=== PATIENT | male | born 1955 | race Caucasian/White ===

== ENCOUNTER 2019-06-29 20:35 | Emergency (ER) | payer OTHER ==
--- OUTSIDE RECORDS SUMMARY | 2019-06-29 20:37 | XMS REPORT ---
:1955 Author Organization e[employer] Care Team Providers Name Role Phone Young, Na Provider Role Unavailable Allergies, Adverse Reactions, Alerts Substance Reaction Event Type Lisinopril pass out Drug Allergy Problems Problem Type Condition Code Onset Dates Condition Status Assessment Chronic viral hepatitis C B18.2 Active Assessment Esophageal varices without bleeding I85.00 Active Problem Hepatitis K75.9 Active Assessment Unspecified cirrhosis of liver K74.60 Active Problem Reflux K21.9 Active Assessment Edema of left lower extremity R60.0 Active Problem Memory problem R41.3 Active Problem Acquired hypothyroidism E03.9 Active Problem Unsteady gait R26.81 Active Problem Allergic rhinitis J30.9 Active Problem Anxiety F41.9 Active Problem Abnormal heart rhythm I49.9 Active Problem Essential hypertension I10 Active Assessment Right hand pain M79.641 Active Problem Lumbar degenerative disc disease M51.36 Active Problem PTSD (post-traumatic stress F43.10 Active disorder) Problem Diverticulitis K57.92 Active Problem Depression F32.9 Active Problem Unspecified cirrhosis of liver K74.60 Active Problem Chronic viral hepatitis C B18.2 Active Problem Circulation problem I99.9 Active Problem Dementia with behavioral 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, unspecified dementia type Problem Irritable bowel K58.9 Active Problem Mixed hyperlipidemia E78.2 Active Problem Swelling R60.9 Active Problem High cholesterol E78.00 Active Medications Medication Code Code Instructions Start End Status Dosage System Date Date Spironolactone [facility] 05863236057 25 MG Orally Active 1 tablet Levothyroxine [facility] [address]-15 175 MCG Orally Active 1 tablet Sodium Once a day on an empty stomach in the morning Ibuprofen ND 31760080279 600 MG Orally Jun 06Jun Active 1 tablet two times a day 2018 20, with food prn pain 2018 or milk as needed Protonix ND 64506178181 40 MG Orally Active 1 tablet Once a day Clonazepam ND 53154281864 0.5 MG Orally Active 1 tablet Once a day at bedtime Lipitor [facility] 31061272941 80 MG Orally Active 1 tablet Once a day Tamsulosin HCl [facility] 28531553630 0.4 MG Orally Active 1 capsule Once a day Trazodone HCl [facility] 78108153390 100 MG Orally Active 1 tablet Once a day at bedtime Levothyroxine [facility] 47399191057 175 MCG Orally February 21, Active 1 tablet Sodium Once a day 2018 on an empty stomach in the morning Cyanocobalamin [facility] [address]-77 1000 MCG Orally Active 1 tablet Once a day BuPROPion HCl ER [facility] 53188385684 150 MG Orally Active 1 tablet (Smoking Det) Once a day in the morning Results No Known Results Summary Purpose eClinicalWorks Submission
--- OUTSIDE RECORDS SUMMARY | 2019-06-29 20:37 | XMS REPORT | Clinical Summary ---
:1955 Author Organization [employer] Address [address] [place] [address] Care Team Providers Name Role Phone Asked, No Pcp Primary Care Provider Unavailable Allergies Active Allergy Reactions Severity Noted Date Comments Lisinopril 01/03/2019 Hypotension, blood pressure drops too quickly Medications Medication Sig Dispensed Refills Start Date End Date Status lactulose 20 gram/30 Take 20 g by 0 Active mL solution mouth 3 (three) times a day. atorvastatin (LIPITOR) Take 80 mg by 0 Active 80 MG tablet mouth daily. buPROPion SR Take 150 mg by 0 Active (WELLBUTRIN SR) 150 MG mouth 2 (two) 12 hr tablet times a day. levothyroxine Take 175 mcg by 0 Active (SYNTHROID, LEVOXYL) mouth every 175 mcg tablet morning. guaiFENesin (MUCINEX) Take 600 mg by 0 Active 600 mg tablet extended mouth 2 (two) release 12hr times a day. tamsulosin (FLOMAX) Take 0.4 mg by 0 Active 0.4 mg capsule mouth nightly. spironolactone Take 12.5 mg by 0 Active (ALDACTONE) 25 MG mouth daily. tablet traZODone (DESYREL) Take 100 mg by 0 Active 100 MG tablet mouth nightly as needed for sleep. furosemide (LASIX) 20 Take 20 mg by 0 Active mg tablet mouth daily. pantoprazole Take 40 mg by 0 Active (PROTONIX) 40 MG EC mouth daily. tablet riFAXimin (XIFAXAN) Take 1 tablet 60 tablet 2 01/03/2019 02/02/2019 550 mg tablet (550 mg total) by mouth 2 (two) times a day for 30 days. Active Problems Not on file Encounters Date Type Specialty Care Team Description 01/03/2019 Emergency Emergency Medicine Sarmad Melo, Confusion ( Primary Dx); Cirrhosis of liver without ascites, unspecified hepatic cirrhosis type (HCC) after 06/28/2018 Social History Tobacco Use Types Packs/Day Years Used Date Never Assessed Sex Assigned at Date Recorded Not on file Job Start Date Occupation Industry Not on file Not on file Not on file Travel History Travel Start Travel End No recent travel history available. Last Filed Vital Signs Vital Sign Reading Time Taken Comments Blood Pressure 120/78 01/03/2019 2:56 PM CDT Pulse 74 01/03/2019 2:56 PM CDT Temperature 36.7 C (98.1 F) 01/03/2019 11:51 AM CDT Respiratory Rate 16 01/03/2019 2:56 PM CDT Oxygen Saturation 96% 01/03/2019 2:56 PM CDT Inhaled Oxygen Concentration - - Weight 74.8 kg (165 lb) 01/03/2019 11:51 AM CDT Height 175.3 cm (5' 9") 01/03/2019 11:51 AM CDT Body Mass Index 24.37 01/03/2019 11:51 AM CDT Plan of Treatment Health Maintenance Due Date Last Done Comments COLONOSCOPY SCREENING 2006 SHINGLES VACCINES (#1) 2006 INFLUENZA VACCINE 05/17/2019 Procedures Procedure Name Priority Date/Time Associated Comments Diagnosis PROTHROMBIN TIME WITH STAT 01/03/2019 1:33 Results for this INR PM CDT procedure are in the results section. PARTIAL THROMBOPLASTIN STAT 01/03/2019 1:33 Results for this TIME (PTT) PM CDT procedure are in the results section. B NATRIURETIC PEPTIDE STAT 01/03/2019 1:33 Results for this PM CDT procedure are in the results section. HC COMPLETE BLD COUNT STAT 01/03/2019 1:33 Results for this W/AUTO DIFF PM CDT procedure are in the results section. AMMONIA LEVEL STAT 01/03/2019 1:31 Results for this PM CDT procedure are in the results section. NV CRITICAL CARE, E/M Routine 01/03/2019 1:25 Results for this 30-74 MINUTES PM CDT procedure are in the results section. VENOUS BLOOD GAS STAT 01/03/2019 1:17 Results for this PM CDT procedure are in the results section. RESPIRATORY PATHOGEN Routine 01/03/2019 1:17 Results for this PANEL PM CDT procedure are in the results section. BLOOD CULTURE, AEROBIC Routine 01/03/2019 1:17 Results for this & ANAEROBIC PM CDT procedure are in the results section. INFLUENZA ANTIGEN TEST, Routine 01/03/2019 1:17 Results for this REFLEX NEGATIVE TO RPP PM CDT procedure are in the results section. LACTIC ACID LEVEL, Timed 01/03/2019 1:10 Results for this SEPSIS - NOW AND REPEAT PM CDT procedure are in 2X EVERY 3 HOURS the results section. ESTIMATED GFR STAT 01/03/2019 1:10 Results for this PM CDT procedure are in the results section. HEPATIC FUNCTION PANEL STAT 01/03/2019 1:10 Results for this PM CDT procedure are in the results section. BASIC METABOLIC PANEL STAT 01/03/2019 1:10 Results for this PM CDT procedure are in the results section. TROPONIN STAT 01/03/2019 1:10 Results for this PM CDT procedure are in the results section. BLOOD CULTURE, AEROBIC Routine 01/03/2019 1:10 Results for this & ANAEROBIC PM CDT procedure are in the results section. XR CHEST 1 VW PORTABLE STAT 01/03/2019 12:25 Results for this PM CDT procedure are in the results section. ECG 12-LEAD STAT 01/03/2019 12:06 Results for this PM CDT procedure are in the results section. after 06/28/2018 Results Partial thromboplastin time, activated (01/03/2019 1:33 PM CDT) Pathologist [facility] PTT 25.9 23.0 - 36.0 [facility] Comment: [facility] PTT therapeutic range for unfractionated heparin is 61.0-112.0 seconds which corresponds to Anti-Xa 0.3-0.7 U/ml. Specimen Blood Performing Organization Address [facility] Phone Number [facility] DEPARTMENT OF PATHOLOGY AND [address] [place] [phone] [facility] MEDICINE [address] [address] Prothrombin time with INR (01/03/2019 1:33 PM CDT) Pathologist [facility] Prothrombin time 13.2 11.5 - 14.5 [facility] INR 1.0 [facility] Comment: SCIENT[facility] The International Normalized Ratio (INR) is a therapeutic HOSPITAL monitoring tool for patients who are stable on oral anticoagulant therapy. An INR of 2.0-3.0 is suggested for deep vein thrombosis/pulmonary embolism. Specimen Blood Performing Organization Address [facility] Cent[facility]ode Phone Number [facility] DEPARTMENT OF PATHOLOGY AND [address] [place] [phone] [address] CBC with platelet and differential (01/03/2019 1:33 PM CDT) WBC 6.06 4.50 - 11.00 [facility] k/uL HOSPITAL RBC 4.57 4.40 - 6.00 [facility] m/uL HOSPITAL HGB 13.2 (L) 14.0 - 18.0 [facility] g/dL [facility] HCT 40.2 (L) 41.0 - 51.0 % [facility] MCV 88.0 82.0 - 100.0 [facility] MCH 28.9 27.0 - 34.0 pg [facility] MCHC 32.8 31.0 - 37.0 [facility] RDW - SD 47.0 37.0 - 55.0 fL [facility] MPV 10.8 8.8 - 13.2 fL [facility] Platelet count 149 (L) 150 - 400 k/uL [facility] Nucleated RBC 0.00 /100 WBC [facility] Neutrophils 70.6 (H) 39.0 - 69.0 % [facility] Lymphocytes 15.8 (L) 25.0 - 45.0 % [facility] Monocytes 11.7 (H) 0.0 - 10.0 % [facility] Eosinophils 0.8 0.0 - 5.0 % [facility] Basophils 0.8 0.0 - 1.0 % [facility] Immature granulocytes 0.3Comment: 0.0 - 1.0 % [facility] "Immature HOSPITAL granulocytes" (promyelocytes , myelocytes, metamyelocytes ) Specimen Blood Performing Organization Address City/State/Zipcode Phone Number [facility] DEPARTMENT OF PATHOLOGY AND [address] [place] [phone] [address] B natriuretic peptide (01/03/2019 1:33 PM CDT) BNP 7 0 - 100 pg/mL [facility] Specimen Blood Performing Organization Address City/State/Zipcode Phone Number [facility] DEPARTMENT OF PATHOLOGY AND [address] [place] [address] [address] Ammonia level (01/03/2019 1:31 PM CDT) Ammonia 31 16 - 60 umol/L [facility] Specimen Blood Performing Organization Address City/State/Zipcode Phone Number [facility] DEPARTMENT OF PATHOLOGY AND [address] [place] [address] GENOMIC MEDICINE [facility] [address] [place] [address] CRITICAL CARE (01/03/2019 1:25 PM CDT) Narrative Performed At Sarmad Melo MD 01/10/20198:57 PM Critical Care Performed by: Sarmad Melo MD Authorized by: Sarmad Melo MD Critical care provider statement: Critical care time (minutes):35 Critical care time was exclusive of:Separately billable procedures and treating other patients and teaching time Critical care was necessary to treat or prevent imminent or life-threatening deterioration of the following conditions: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 and 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 Critical care was time spent personally by me on the following activities:Development of treatment plan with patient or surrogate, evaluation of patient's response to treatment, examination of patient, obtaining history from patient or surrogate, ordering and performing treatments and interventions, ordering and review of laboratory studies, ordering and review of radiographic studies, pulse oximetry, re-evaluation of patient's condition and review of old charts Wade 'yes' if you are taking over critical care for this patient from another provider.: no Comments: Pt p/w self stated grogginess, confusion, some slight memory impairments in the setting of cirrhosis and history of hepatic encephalopthy. Neruological evaluation without deficits, infectious eval without signs if infection, bedside ultrasound without ascities- neg cxr/ua- ammonia slightly elevated- as per medication review decrease use/fucntion of lactulose on terms of providding adequate BM's, no use of Rifaxamin- pt provided rifaxamin and told to increase his lactulose and follow up with his GI at the [facility] Respiratory pathogen panel (01/03/2019 1:17 PM CDT) Respiratory Negative for all pathogens tested: [facility] pathogen panel Negative for Adenovirus SCIENTOLOGY Negative for Coronavirus HKU1 [facility] Negative for Coronavirus NL63 Negative for Coronavirus 229E Negative for Coronavirus OC43 Negative for Human Metapneumovirus Negative for Rhinovirus/Enterovirus Negative for Influenza A Negative for Influenza A/H1 Negative for Influenza A/H3 Negative for Influenza A/H1-2009 Negative for Influenza B Negative for Parainfluenza Virus 1 Negative for Parainfluenza Virus 2 Negative for Parainfluenza Virus 3 Negative for Parainfluenza Virus 4 Negative for Respiratory Syncytial Virus Negative for Bordetella pertussis Negative for Chlamydophila pneumoniae Negative for Mycoplasma pneumoniae This real-time PCR assay detects the presence of nucleic acids (RNA or DNA) for the respiratory pathogens listed. A result of "Not-detected" does not exclude the possibility of the presence of one or more pathogens at concentrations less than the detectable limits of the assay. Comment: Specimen Information Specimen Source: Nares Specimen Site: Left Specimen Nares - Left Performing Organization Address [facility] Centercode Phone Number [facility] DEPARTMENT OF PATHOLOGY AND [address] [place] [address] Influenza antigen test, reflex negative to RPP (01/03/2019 1:17 PM CDT) [facility] Influenza antigen Negative for Influenza A/B antigen. [facility] Comment: HOSPITAL Specimen Information Specimen Source: Nares Specimen Site: Left Specimen Nares - Left Performing Organization Address City/[facility] Centercomt Phone Number [facility] DEPARTMENT OF PATHOLOGY AND [address] [place] [address] Blood culture, aerobic & anaerobic (01/03/2019 1:17 PM CDT)Only the most recent of2 resultswithin the time period is included. [facility] Blood culture No growth after 5 days of incubation. [facility] isolate Comment: HOSPITAL Specimen Information Specimen Source: Blood Specimen Site: Antecubital, left Specimen Blood - Antecubital, left Performing Organization Address [facility] Phone Number [facility] DEPARTMENT OF PATHOLOGY AND [address] [place] [phone] Venous blood gas (01/03/2019 1:17 PM CDT) [facility] pH, venous 7.41 7.32 - 7.42 [facility] pCO2, venous 40 (L) 45 - 51 mmHg [facility] pO2, venous 71 (H) 25 - 40 mmHg [facility] Base excess, venous 1 -2 - 2 meq/L [facility] O2 saturation, 94 (H) 40 - 70 % [facility] Bicarbonate, venous 24.7 21.0 - 28.0 [facility] mmol/L HOSPITAL Specimen Blood Performing Organization Address [facility] Centercode Phone Number [facility] DEPARTMENT OF PATHOLOGY AND [address] [place] [address] Estimated GFR (01/03/2019 1:10 PM CDT) Estimated GFR 89 mL/min/1.73 [facility] Comment: HOSPITAL CatergoryUnitsInterpretation G1 >=90 Normal or high G2 60-89Mildly decreased B5w55-73Mdkony to moderately decreased Y8p42-55Mxzatzgtrv to severely decreased G4 15-29Severely decreased G5 <15Kidney failure The eGFR was calculated using the Chronic Kidney Disease Epidemiology Collaboration (CKD-EPI) equation. Interpretation is based on recommendations of the National Kidney Foundation-Kidney Disease Outcomes Quality Initiative (NKF-KDOQI) published in 2014. Specimen Plasma specimen Performing Organization Address [facility] Phone Number [facility] DEPARTMENT OF PATHOLOGY AND [address] [place], [place] [phone] Lactic acid level, SEPSIS - Now and repeat 2x every 3 hours (01/03/2019 1:10 PM CDT) Lactic acid 0.9 0.5 - 2.2 mmol/L [facility] Specimen Blood Performing Organization Address City/[facility]/Zipcode Phone Number [facility] DEPARTMENT OF PATHOLOGY AND [address] [place] [phone] Troponin (01/03/2019 1:10 PM CDT) Troponin <0.30 0.00 - 0.30 [facility] Comment: ng/mL HOSPITAL 0.30 - 1.49 ng/mlMay indicate increased risk of acute coronary syndrome. >=1.5 ng/mlConsistent with acute myocardial infarction. The diagnostic value of a single normal or non-diagnostic result is questionable.Serial samples at 2-6 hour intervals are required to rule out acute myocardial injury. Specimen Plasma specimen Performing Organization Address City/[facility]/Zipcode Phone Number [facility] DEPARTMENT OF PATHOLOGY AND [address] [address] Hepatic function panel (01/03/2019 1:10 PM CDT) Albumin 3.5 3.5 - 5.0 g/dL [facility] Total bilirubin 0.4 0.0 - 1.2 [facility] mg/dL [facility] Bilirubin direct <0.2 0.0 - 0.3 [facility] mg/dL [facility] Alkaline phosphatase 63 40 - 129 U/L [facility] Protein 7.0 6.3 - 8.3 g/dL [facility] Comment: HOSPITAL 4.6-7.0 g/dL 1 week 4.4-7.6 g/dL 7 months-1year5.1-7.3 g/dL 1-2 years5.6-7.5 g/dL >3 years6.0-8.0 g/dL 18-150 6.3-8.3 g/dL ALT 21 5 - 50 U/L [facility] AST 26 10 - 50 U/L [facility] Specimen Plasma specimen Performing Organization Address City/[facility]ercode Phone Number [facility] DEPARTMENT OF PATHOLOGY AND [address] [place] [address] [address] Basic metabolic panel (01/03/2019 1:10 PM CDT) Sodium 138 135 - 148 mEq/L [facility] Potassium 4.2 3.5 - 5.0 mEq/L [facility] Chloride 103 98 - 112 mEq/L [facility] CO2 22 (L) 24 - 31 mEq/L [facility] Anion gap 13@ANIO 7 - 15 mEq/L [facility] BUN 19 8 - 23 mg/dL [facility] Creatinine 0.92 0.70 - 1.20 mg/dL [facility] Glucose 103 (H) 65 - 99 mg/dL [facility] Calcium 9.2 8.8 - 10.2 mg/dL [facility] Specimen Plasma specimen Performing Organization Address City/State/Zipcode Phone Number [facility] DEPARTMENT OF PATHOLOGY AND [address] [place] [address] GENOMIC MEDICINE [facility] [address] [place] [address] XR Chest 1 Vw Portable (01/03/2019 12:25 PM CDT) Specimen Narrative Performed At EXAMINATION:XR CHEST 1 VW PORTABLE [facility] CLINICAL HISTORY:SOB COMPARISON:None IMPRESSION: An AP radiograph of the chest was submitted for interpretation. The lungs are clear. The mediastinal contours and cardiac silhouette are unremarkable. The bones are unremarkable. Spinal stimulator wires overlie the mid thoracic spine. [facility]-[id number] Procedure Note Hm Interface, Radiology Results Incoming - 01/03/2019 12:37 PM CDT EXAMINATION: XR CHEST 1 VW PORTABLE CLINICAL HISTORY: SOB COMPARISON: None IMPRESSION: An AP radiograph of the chest was submitted for interpretation. The lungs are clear. The mediastinal contours and cardiac silhouette are unremarkable. The bones are unremarkable. Spinal stimulator wires overlie the mid thoracic spine. [facility]-[id number] Performing Organization Address [facility] Centercode Phone Number [facility] [address] [place] [address] ECG 12 lead (01/03/2019 12:06 PM CDT) Ventricular rate 67 [facility] Atrial rate 67 [facility] NV interval 168 [facility] QRSD interval 86 [facility] QT interval 424 [facility] QTC interval 448 [facility] P axis 1 46 [facility] QRS axis 1 64 [facility] T wave axis 51 [facility] EKG impression Normal sinus [facility] MUSE rhythm-Normal ECG-No previous ECGs available-Electronicall y Signed By El PETERSON, Dipika ([id number]) on 01/04/2019 6:53:58 PM Specimen Narrative Performed At Performing Organization Address City/State/Zipcode Phone Number [facility] MUSE [address] [place] [address] after 06/28/2018 Insurance Payer Benefit Plan / Subscriber ID Effective Dates Phone Address Type Group [facility] [facility] [employer] NeighborMDNINETY SIX xxxxxxxx 2018-Presen O HMO MCR ADV t Advance Directives For more information, please contact: [phone] Type Date Recorded 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
--- OUTSIDE RECORDS SUMMARY | 2019-06-29 20:37 | XMS REPORT ---
:1955 [facility] Address [address] [place] [address] Care Team Providers Name Role Phone UNKNOWN, REFFERING Primary Care Provider Unavailable Payers Payer Name Policy Type Policy Number Effective Date Expiration Date Problems This patient has no known problems. Allergies, Adverse Reactions, Alerts Allergy Name Allergy Status Severity Reaction(s) Onset Inactive Treating Comments Type Date Date Clinician lisinopril DA Active [place] 2018-09 00:00:0 0 Medications This patient has no known medications. Encounters Start End Encounter Admission Attending Care Care Encounter Date/Time Date/Time Type Type Clinicians Facility Department ID 2018-07-05 2018-07-05 Outpatient [facility] [id number] 00:00:00 00:00:00 2018-04-12 2018-04-12 Outpatient [facility] [id number] 10:24:00 10:24:00 2018-04-10 2018-04-10 Emergency [facility] [id number] 18:54:25 18:54:25 2018-04-10 2018-04-10 Emergency [facility] [id number] 16:19:51 16:19:51 2018-03-30 2018-03-30 Outpatient [facility] [id number] 14:36:51 14:36:51 2018-03-29 2018-03-29 Outpatient [facility] [id number] 15:19:09 15:19:09 2017-09-10 2017-09-10 Emergency [facility] [id number] 14:42:00 14:42:00 Results Test Description Test Time Test Comments Text Results Atomic Results Result Comments CT LUMBAR SPINE LTD W/O 2017-09-10 16:43:13 PROCEDURE: CT OF THE CERVICAL SPINE CONTRAST AND CT OF THE LUMBAR SPINECLINICAL HISTORY: Fall, pain.COMPARISON: None.TECHNIQUE: Axial CT images of the cervical and lumbar spine wereobtained. Coronal and sagittal reformations were added. One or more thefollowing dose reduction techniques were used: Automated exposurecontrol, adjustment of mA and/or kV according to patient size, and useof iterative reconstruction technique..FINDINGS: Cervical spine: The bone density appears within normal limits. There isstraightening of the normal cervical lordosis. Anterior cervicalfixation is seen at C5-C6. The hardware appears intact. There isnarrowing of intervertebral disc spaces noted from C3 to C5 and C6-C7.Atlantoaxial joint arthropathy is present. No displaced fracture orsubluxation is seen.Lumbar spine: The bone density appears within normal limits. There isanterolisthesis of L4 on L5 of approximately 0.8 cm. Degenerativechanges of the lumbar spine are noted to include endplate irregularity,disc space, vacuum phenomena, osteophyte formation, subchondral cysticchanges, facet arthropathy and foraminal narrowing. No displacedfracture or subluxation is seen.IMPRESSION:1. No displaced fracture or subluxation of the cervical or lumbar spine.2. Anterior cervical fixation at C5-C6. Degenerative changes of thecervical spine. 3. Degenerative changes of the lumbar spine. CT CERVICAL SPINE LTD W/O 2017-09-10 16:43:13 PROCEDURE: CT OF THE CERVICAL SPINE CONTRAS AND CT OF THE LUMBAR SPINECLINICAL HISTORY: Fall, pain.COMPARISON: None.TECHNIQUE: Axial CT images of the cervical and lumbar spine wereobtained. Coronal and sagittal reformations were added. One or more thefollowing dose reduction techniques were used: Automated exposurecontrol, adjustment of mA and/or kV according to patient size, and useof iterative reconstruction technique..FINDINGS: Cervical spine: The bone density appears within normal limits. There isstraightening of the normal cervical lordosis. Anterior cervicalfixation is seen at C5-C6. The hardware appears intact. There isnarrowing of intervertebral disc spaces noted from C3 to C5 and C6-C7.Atlantoaxial joint arthropathy is present. No displaced fracture orsubluxation is seen.Lumbar spine: The bone density appears within normal limits. There isanterolisthesis of L4 on L5 of approximately 0.8 cm. Degenerativechanges of the lumbar spine are noted to include endplate irregularity,disc space, vacuum phenomena, osteophyte formation, subchondral cysticchanges, facet arthropathy and foraminal narrowing. No displacedfracture or subluxation is seen.
[2019-06-29 21:56] LABS: Absolute Lymphocytes (CBC) 0.8 K/uL (0.7-4.9); Basophils % 0.4 % (0-1.3); Hematocrit 38.5 % (39.6-49.0); Lymphocytes % 11.1 % (15.3-44.8); MPV 9.2 fL (7.6-11.3); RBC Red Blood Cell Count 4.33 M/uL (4.33-5.43)
[2019-06-29 21:58] LABS: Protime INR 1.04
[2019-06-29 22:09] LABS: ALT/SGPT 21 U/L (12-78); AST/SGOT 19 U/L (15-37); Albumin 3.7 g/dL (3.4-5.0); Alkaline Phosphatase 89 U/L (45-117); BUN Blood Urea Nitrogen 15 mg/dL (7-18); Bicarbonate 26 mmol/L (21-32); Bilirubin Direct 0.1 mg/dL (0-0.2); Bilirubin Total 0.3 mg/dL (0.2-1.0); Glucose Level 84 mg/dL (74-106); Lipase 99 U/L (73-393); Magnesium 1.8 mg/dL (1.8-2.4); NT PRO-BNP 142 pg/mL (<125); Protein, Total 7.2 g/dL (6.4-8.2); Sodium Level 144 mmol/L (136-145); Troponin (Emerg Dept Use Only) < 0.02 ng/mL (0.0-0.045)
[2019-06-29] MEDS ORDERED: ONDANSETRON 4 MG/2 ML VIAL ONE (23:37)
[2019-06-29] MEDS ORDERED: MORPHINE 2 MG/ML SYR ONE (23:37)
[2019-06-30 00:55] LABS: Urine Blood NEGATIVE (NEG); Urine Glucose NEGATIVE (NEG); Urine Protein NEGATIVE (NEG); Urine Specific Gravity 1.015 (1.005-1.030); Urine pH 5.5 (5.0-7.0)
--- NOTE | 2019-06-30 01:07 | EDPHYS ---
Physician Documentation [facility] Name: Papito Barry Age: 63 yrs Sex: Male : 1955 Arrival Date: 06/29/2019 Time: 20:46 Bed 17 Private MD: Edgar Walter HPI: 06/29 21:27 This 63 yrs old Male presents to ER via EMS with complaints of Chest Pain, marquise Cough, Fever, Abdominal Pain. 21:27 The patient or guardian reports chest pain that is located primarily in the anterior marquise chest wall, right. Onset: today, yesterday. The pain does not radiate. 21:28 The patient presents with abdominal pain in the upper abdomen, in the right upper marquise quadrant, abdominal distention in the epigastric area, in the upper abdomen. Onset: The symptoms/episode began/occurred. The symptoms do not radiate. Associated signs and symptoms: The patient has no apparent associated signs or symptoms. Historical: - Allergies: 20:58 Lisinopril; fc 20:58 Propranolol; fc 20:58 NSAIDS; fc - Home Meds: 20:58 Vitamin B-12 1,000 mcg Oral tab daily [Active]; tamsulosin 0.4 mg oral cp24 1 cap once fc daily [Active]; bupropion HCl 150 mg Oral TbER 1 tab once daily [Active]; pantoprazole 40 mg oral TbEC 1 tab once daily [Active]; lactulose 10 gram/15 mL Oral soln 15 mL 3 times per day [Active]; Lasix 20 mg Oral tab 1 tab once daily [Active]; ibuprofen 600 mg Oral tab 1 tab twice a day [Active]; levothyroxine 175 mcg tab 1 tab once daily [Active]; trazodone 100 mg Oral tab 1 tab nightly [Active]; atorvastatin 80 mg oral tab 1 tab once daily [Active]; - PMHx: 20:58 colon polyps removed; Cirrhosis; Hepatitis; hepititis C-gone now; Hypertension; fc Hypothyroidism; Dementia; Cardiomyopathy; CAD; varacies; Anemia; - PSHx: 20:58 amputation right BKA; Appendectomy; BACK SURGERY; [employer]; neck surg; fc Cholecystectomy; fasciotomy to left lower leg; - Immunization history:: Last tetanus immunization: up to date. - Social history:: Smoking status: Patient uses tobacco products, smokes one-half pack cigarettes per day, Patient/guardian denies using alcohol, street drugs. - Ebola Screening: : Patient negative for fever greater than or equal to 101.5 degrees Fahrenheit, and additional compatible Ebola Virus Disease symptoms Patient denies exposure to infectious person Patient denies travel to an Ebola-affected area in the 21 days before illness onset. - Family history:: not pertinent. ROS: 21:28 Constitutional: Negative for fever, chills, and weight loss, Eyes: Negative for injury, marquise pain, redness, and discharge, ENT: Negative for injury, pain, and discharge, Neck: Negative for injury, pain, and swelling, Cardiovascular: Negative for chest pain, palpitations, and edema, Respiratory: Negative for shortness of breath, cough, wheezing, and pleuritic chest pain, Back: Negative for injury and pain, : Negative for injury, bleeding, discharge, and swelling, MS/Extremity: Negative for injury and deformity, Skin: Negative for injury, rash, and discoloration, Neuro: Negative for headache, weakness, numbness, tingling, and seizure, Psych: Negative for depression, anxiety, suicide ideation, homicidal ideation, and hallucinations, Allergy/Immunology: Negative for hives, rash, and allergies, Endocrine: Negative for neck swelling, polydipsia, polyuria, polyphagia, and marked weight changes, Hematologic/Lymphatic: Negative for swollen nodes, abnormal bleeding, and unusual bruising. 21:28 Abdomen/GI: Positive for abdominal pain, of the right upper quadrant. Exam: 21:28 Constitutional: This is a well developed, well nourished patient who is awake, alert, marquise and in no acute distress. Head/Face: Normocephalic, atraumatic. Eyes: Pupils equal round and reactive to light, extra-ocular motions intact. Lids and lashes normal. Conjunctiva and sclera are non-icteric and not injected. Cornea within normal limits. Periorbital areas with no swelling, redness, or edema. ENT: Nares patent. No nasal discharge, no septal abnormalities noted. Tympanic membranes are normal and external auditory canals are clear. Oropharynx with no redness, swelling, or masses, exudates, or evidence of obstruction, uvula midline. Mucous membranes moist. Neck: Trachea midline, no thyromegaly or masses palpated, and no cervical lymphadenopathy. Supple, full range of motion without nuchal rigidity, or vertebral point tenderness. No Meningismus. Chest/axilla: Normal chest wall appearance and motion. Nontender with no deformity. No lesions are appreciated. Cardiovascular: Regular rate and rhythm with a normal S1 and S2. No gallops, murmurs, or rubs. Normal PMI, no JVD. No pulse deficits. Respiratory: Lungs have equal breath sounds bilaterally, clear to auscultation and percussion. No rales, rhonchi or wheezes noted. No increased work of breathing, no retractions or nasal flaring. Abdomen/GI: Soft, non-tender, with normal bowel sounds. No distension or tympany. No guarding or rebound. No evidence of tenderness throughout. Back: No spinal tenderness. No costovertebral tenderness. Full range of motion. Male : Normal genitalia with no discharge or lesions. Skin: Warm, dry with normal turgor. Normal color with no rashes, no lesions, and no evidence of cellulitis. Neuro: Awake and alert, GCS 15, oriented to person, place, time, and situation. Cranial nerves II-XII grossly intact. Motor strength 5/5 in all extremities. Sensory grossly intact. Cerebellar exam normal. Normal gait. Psych: Awake, alert, with orientation to person, place and time. Behavior, mood, and affect are within normal limits. 21:28 Musculoskeletal/extremity: ROM: no acute changes, intact in all extremities, full active range of motion, full passive range of motion, Circulation is intact in all extremities. Sensation intact. Compartment Syndrome exam of affected extremity: is normal. DVT Exam: No signs of deep vein thrombosis. no pain, no swelling, no tenderness, negative Homans' sign noted on exam, no appreciated bluish discoloration. Vital Signs: 20:30 BP 130 / 82; Pulse 67; Resp 18; Temp 98.9(O); Pulse Ox 96% on R/A; Weight 97.52 kg (R); fc Height 5 ft. 9 in. (175.26 cm) (R); Pain 6/10; 21:52 BP 160 / 90; Pulse 63; Resp 18; Pulse Ox 96% ; Pain 6/10; cr4 22:30 BP 140 / 84; Pulse 57; Resp 18; Pulse Ox 94% ; Pain 7/10; cr4 23:23 BP 136 / 77; Pulse 57; Resp 18; Temp 97.6; Pulse Ox 94% ; Pain 5/10; cr4 06/30 00:34 BP 111 / 59; Pulse 57; Resp 18; Pulse Ox 93% ; Pain 5/10; cr4 01:57 BP 133 / 81; Pulse 60; Resp 20; Temp 98.7; Pulse Ox 94% ; Pain 3/10; cr4 06/29 20:30 Body Mass Index 31.75 (97.52 kg, 175.26 cm) MDM: 06/29 21:[address] [facility] 21:29 Data reviewed: vital signs, nurses notes, lab test result(s), EKG, radiologic studies, [facility] CT scan, plain films. 06/29 20:54 Order name: Basic Metabolic Panel; Complete Time: 23:18 [facility] 06/29 20:54 Order name: CBC with Diff; Complete Time: 23:18 [facility] 06/29 20:54 Order name: LFT's; Complete Time: 23:18 [facility] 06/29 20:54 Order name: Magnesium; Complete Time: 23:18 [facility] 06/29 20:54 Order name: NT PRO-BNP; Complete Time: 23:18 [facility] 06/29 20:54 Order name: PT-INR; Complete Time: 23:18 [facility] 06/29 20:54 Order name: Troponin (emerg Dept Use Only); Complete Time: 23:18 [facility] 06/29 20:54 Order name: Lipase; Complete Time: 23:18 [facility] 06/29 21:01 Order name: AMMONIA; Complete Time: 23:18 06/29 21:07 Order name: Lactate [facility] 06/29 21:07 Order name: Procalcitonin; Complete Time: 23:18 [facility] 06/29 21:07 Order name: Blood Culture Adult (2) [facility] 06/29 21:07 Order name: Urine Culture [facility] 06/29 21:08 Order name: Lactate; Complete Time: 23:18 [facility] 06/29 20:54 Order name: XRAY Chest (1 view) [facility] 06/29 20:54 Order name: EKG; Complete Time: 20:55 [facility] 06/29 20:54 Order name: Cardiac monitoring; Complete Time: 22:00 [facility] 06/29 20:54 Order name: EKG - Nurse/Tech; Complete Time: 22:00 [facility] 06/29 20:54 Order name: IV Saline Lock; Complete Time: 22:00 [facility] 06/29 20:54 Order name: Labs collected and sent; Complete Time: 22:00 [facility] 06/29 20:54 Order name: O2 Per Protocol; Complete Time: 22:00 [facility] 06/29 20:54 Order name: O2 Sat Monitoring; Complete Time: 22:00 [facility] 06/29 21:07 Order name: Urine Dipstick-Ancillary (obtain specimen); Complete Time: 02:15 [facility] 06/29 21:27 Order name: CT Abd/Pelvis - IV Contrast Only [facility] 06/30 00:03 Order name: Urine Dipstick--Ancillary (enter results); Complete Time: 01:04 mw2 Administered Medications: 23:41 Drug: Zofran 4 mg Route: IVP; Site: left forearm; cr4 23:42 Drug: morphine 2 mg Route: IVP; Site: right forearm; cr4 06/30 00:00 Follow up: Response: Pain is decreased cr4 Disposition: 06/30/19 01:05 Discharged to Home. Impression: Abdominal tenderness, Alcoholic cirrhosis of liver without ascites, Esophageal varices, Esophageal varices without bleeding, Cough, Bronchitis, not specified as acute or chronic, Tobacco abuse counseling, Tobacco use. - Condition is Stable. - Discharge Instructions: Abdominal Pain, Adult, Acute Bronchitis, Adult, Steps to Quit Smoking, Smoking Hazards, Abdominal Pain, Adult, [id number], Cough, Adult, [id number]. - Prescriptions for Bentyl 20 mg Oral Tablet - take 1 tablet by ORAL route every 6 hours As needed; 20 tablet. Bactrim DS 800- 160 mg Oral Tablet - take 1 tablet by ORAL route every 12 hours for 10 days; 20 tablet. - Medication Reconciliation Form, Thank You Letter, Antibiotic Education, Prescription Opioid Use form. - Follow up: Private Physician; When: 2 - 3 days; Reason: Recheck today's complaints, Continuance of care, Re-evaluation by your physician. Follow up: Carlos Pollard; When: 2 - 3 days; Reason: Recheck today's complaints, Continuance of care, Re-evaluation by your physician. - Problem is new. - Symptoms have improved. Signatures: Dispatcher [employer] Edgar Benitez MD MD marquise Mickail, Rd, PA PA jmm [place], [place], RN RN Denise Cotter, RN RN cr4 Corrections: (The following items were deleted from the chart) 02:00 01:05 06/30/2019 01:05 Discharged to Home. Impression: Abdominal tenderness; Alcoholic cr4 cirrhosis of liver without ascites; Esophageal varices; Esophageal varices without bleeding; Cough; Bronchitis, not specified as acute or chronic; Tobacco abuse counseling; Tobacco use. Condition is Stable. Discharge Instructions: Abdominal Pain, Adult, Abdominal Pain, Adult, [id number], Acute Bronchitis, Adult, Cough, Adult, [id number], Steps to Quit Smoking, Smoking Hazards. Prescriptions for Bentyl 20 mg Oral Tablet - take 1 tablet by ORAL route every 6 hours As needed; 20 tablet, Bactrim DS 800-160 mg Oral Tablet - take 1 tablet by ORAL route every 12 hours for 10 days; 20 tablet. and Forms are Medication Reconciliation Form, Thank You Letter, Antibiotic Education, Prescription Opioid Use. Follow up: Private Physician; When: 2 - 3 days; Reason: Recheck today's complaints, Continuance of care, Re-evaluation by your physician. Follow up: Carlos Pollard; When: 2 - 3 days; Reason: Recheck today's complaints, Continuance of care, Re-evaluation by your physician. Problem is new. Symptoms have improved. marquise
--- NOTE | 2019-06-30 01:07 | ER ---
Nurse's Notes [facility] Name: Papito Barry Age: 63 yrs Sex: Male : 1955 Arrival Date: 06/29/2019 Time: 20:46 Bed 17 Private MD: Diagnosis: Abdominal tenderness;Alcoholic cirrhosis of liver without ascites;Esophageal varices;Esophageal varices without bleeding;Cough;Bronchitis, not specified as acute or chronic;Tobacco abuse counseling;Tobacco use Presentation: 06/29 20:30 Presenting complaint: Patient states: that he is having epigastric pain that radiates fc to right side along with nausea x 3 days. Also having cough with yellow sputum and fever. Pt took Ibuprofen at 1930 before calling EMS. Transition of care: patient was not received from another setting of care. Onset of symptoms was June 26, 2019. Risk Assessment: Do you want to hurt yourself or someone else? Patient reports no desire to harm self or others. Initial Sepsis Screen: Does the patient meet any 2 criteria? No. Patient's initial sepsis screen is negative. Does the patient have a suspected source of infection? No. Patient's initial sepsis screen is negative. Care prior to arrival: None. 20:30 Method Of Arrival: EMS: [facility] fc 20:30 Acuity: [place] 3 fc Historical: - Allergies: 20:58 Lisinopril; fc 20:58 Propranolol; fc 20:58 NSAIDS; fc - Home Meds: 20:58 Vitamin B-12 1,000 mcg Oral tab daily [Active]; tamsulosin 0.4 mg oral cp24 1 cap once fc daily [Active]; bupropion HCl 150 mg Oral TbER 1 tab once daily [Active]; pantoprazole 40 mg oral TbEC 1 tab once daily [Active]; lactulose 10 gram/15 mL Oral soln 15 mL 3 times per day [Active]; Lasix 20 mg Oral tab 1 tab once daily [Active]; ibuprofen 600 mg Oral tab 1 tab twice a day [Active]; levothyroxine 175 mcg tab 1 tab once daily [Active]; trazodone 100 mg Oral tab 1 tab nightly [Active]; atorvastatin 80 mg oral tab 1 tab once daily [Active]; - PMHx: 20:58 colon polyps removed; Cirrhosis; Hepatitis; hepititis C-gone now; Hypertension; fc Hypothyroidism; Dementia; Cardiomyopathy; CAD; varacies; Anemia; - PSHx: 20:58 amputation right BKA; Appendectomy; BACK SURGERY; SPINAL STIMULATOR; neck surg; fc Cholecystectomy; fasciotomy to left lower leg; - Immunization history:: Last tetanus immunization: up to date. - Social history:: Smoking status: Patient uses tobacco products, smokes one-half pack cigarettes per day, Patient/guardian denies using alcohol, street drugs. - Ebola Screening: : Patient negative for fever greater than or equal to 101.5 degrees Fahrenheit, and additional compatible Ebola Virus Disease symptoms Patient denies exposure to infectious person Patient denies travel to an Ebola-affected area in the 21 days before illness onset. - Family history:: not pertinent. Screenin:51 Abuse screen: Denies threats or abuse. Nutritional screening: No deficits noted. fc Tuberculosis screening: No symptoms or risk factors identified. Fall Risk Fall in past 12 months (25 points). Secondary diagnosis (15 points) dementia, impaired mobility, No IV (0 pts). Ambulatory Aid- Crutches/Cane/Walker (15 pts). Gait- Impaired (20 pts.). Mental Status- Overestimates/Forgets Limitations (15 pts.). Total Carey Fall Scale indicates High Risk Score (45 or more points). Fall prevention measures have been instituted. Side Rails Up X 2 Placed Close to Nursing Station Frequent Obs/Assessments Occuring As available patient and family educated on Fall Prevention Program and Strategies. Assessment: 20:45 General: Appears uncomfortable, well groomed, Behavior is anxious. Pain: Complains of cr4 pain in right upper quadrant right flank. Pain currently is 5 out of 10 on a pain scale. Quality of pain is described as aching, Pain began 2-3 days ago. Is continuous. Neuro: Level of Consciousness is awake, alert, obeys commands, Oriented to person, place, time, situation, Appropriate for age Plastic Technician are equal bilaterally Speech is normal, Pupils are PERRLA, Reports Denies dizziness, numbness. Cardiovascular: Denies chest pain, lightheadedness, shortness of breath, syncope, vomiting, Heart tones S1 S2 Capillary refill < 3 seconds Respiratory: Reports cough that is productive. GI: Reports upper abdominal pain, nausea, Patient currently denies vomiting. : Reports voiding daily only in am. EENT: Denies nasal congestion, nasal discharge, difficulty swallowing. Derm: slight redness to right foot stump. Musculoskeletal: Amputation of right below the knee.. 21:40 Reassessment: No changes from previously documented assessment. Patient and/or family cr4 updated on plan of care and expected duration. Pain level reassessed. Patient is alert, oriented x 3, equal unlabored respirations, skin warm/dry/pink. 22:35 Reassessment: No changes from previously documented assessment. Patient and/or family cr4 updated on plan of care and expected duration. Pain level reassessed. Patient is alert, oriented x 3, equal unlabored respirations, skin warm/dry/pink. 23:28 Reassessment: No changes from previously documented assessment. Patient and/or family cr4 updated on plan of care and expected duration. Pain level reassessed. Patient is alert, oriented x 3, equal unlabored respirations, skin warm/dry/pink. 06/30 00:30 Reassessment: Patient and/or family updated on plan of care and expected duration. Pain cr4 level reassessed. Patient is alert, oriented x 3, equal unlabored respirations, skin warm/dry/pink. Patient states feeling better. 01:36 Reassessment: Patient and/or family updated on plan of care and expected duration. Pain cr4 level reassessed. Patient is alert, oriented x 3, equal unlabored respirations, skin warm/dry/pink. Patient states feeling better. reviewed discharge instructions and he is attempting to contact his healthcare provider. He was told that if he was in the hospital he could call and they would pick him up.. 01:50 General: spoke to housekeeping aid who stated we would pay for the patient to be taken cr4 to [facility]. [employer] cab was called.. Vital Signs: 06/29 20:30 BP 130 / 82; Pulse 67; Resp 18; Temp 98.9(O); Pulse Ox 96% on R/A; Weight 97.52 kg (R); fc Height 5 ft. 9 in. (175.26 cm) (R); Pain 6/10; 21:52 BP 160 / 90; Pulse 63; Resp 18; Pulse Ox 96% ; Pain 6/10; cr4 22:30 BP 140 / 84; Pulse 57; Resp 18; Pulse Ox 94% ; Pain 7/10; cr4 23:23 BP 136 / 77; Pulse 57; Resp 18; Temp 97.6; Pulse Ox 94% ; Pain 5/10; cr4 06/30 00:34 BP 111 / 59; Pulse 57; Resp 18; Pulse Ox 93% ; Pain 5/10; cr4 01:57 BP 133 / 81; Pulse 60; Resp 20; Temp 98.7; Pulse Ox 94% ; Pain 3/10; cr4 06/29 20:30 Body Mass Index 31.75 (97.52 kg, 175.26 cm) fc ED Course: 06/29 20:30 Arm band placed on Patient placed in an exam room, on a stretcher. fc 20:46 Patient arrived in ED. ag3 20:49 Triage completed. fc 20:51 Patient has correct armband on for positive identification. Bed in low position. Call fc light in reach. Side rails up X2. Pulse ox on. NIBP on. 20:51 No provider procedures requiring assistance completed. Patient maintains SpO2 fc saturation greater than 95% on room air. 21:02 Edgar Orellana MD is Attending Physician. marquise 21:17 XRAY Chest (1 view) In Process Unspecified. EDMS 21:38 Radiology exam delayed due to lab results not completed at this time. (BUN/Creatinine) nj IV insertion attempt and/or patient not having appropriate IV at this time. 21:40 Warm blanket given. Pillow given. cr4 21:56 Radiology exam delayed due to lab results not completed at this time. (BUN/Creatinine). sj 22:[address] via stretcher. nj 22:57 CT Abd/Pelvis - IV Contrast Only In Process Unspecified. EDMS 23:28 Notified ED physician of other of current pain and request for pain medication. cr4 06/30 01:05 Carlos Pollard MD is Referral Physician. marquise 02:02 IV discontinued, intact, bleeding controlled, No redness/swelling at site. cr4 Administered Medications: 06/29 23:41 Drug: Zofran 4 mg Route: IVP; Site: left forearm; cr4 23:42 Drug: morphine 2 mg Route: IVP; Site: right forearm; cr4 06/30 00:00 Follow up: Response: Pain is decreased cr4 Outcome: 01:05 Discharge ordered by . marquise 02:00 Patient left the ED. cr4 02:01 Discharged to home ambulatory, via taxi cab cr4 02:01 Condition: stable 02:01 Discharge instructions given to patient, Instructed on discharge instructions, follow up and referral plans. medication usage, Demonstrated understanding of instructions, follow-up care, medications, Prescriptions given X 2. Signatures: Dispatcher [employer] EDMI Edgar Orellana MD MD cha Jones, Georgia Streeter RN RN Denise Wright RN RN [email or web address] Rufino Reyna Alice [email or web address] Corrections: (The following items were deleted from the chart) 06/29 20:59 20:30 Presenting complaint: Patient states: that he is having epigastric pain that fc radiates to right side along with nausea x 3 days. Also having cough with yellow sputum and fever. fc
[2019-06-30 03:48] VITALS: BP 133/81; TEMP 98.7; O2SAT 94
--- NOTE | 2019-06-30 09:22 | RAD REPORT ---
EXAM DESCRIPTION: [place] Single View06/29/2019 9:15 pm CLINICAL HISTORY: Chest pain COMPARISON: 2017 FINDINGS: The lungs appear clear of acute infiltrate. The heart is normal size IMPRESSION: No acute abnormalities displayed
--- NOTE | 2019-07-01 18:27 | EKG ---
Test Date: 2019-06-29 Test Time: 21:54:13 Teaching Specialists: ELOY MEASUREMENT RESULTS: Intervals: Rate: 61 RI: 170 QRSD: 84 QT: 434 QTc: 436 Cameron: P: 29 RI: 170 QRS: 73 T: 18 INTERPRETIVE STATEMENTS: Normal sinus rhythm Normal ECG Compared to ECG 09/03/2016 20:23:34 Myocardial infarct finding no longer present Electronically Signed On 07-01-19 18:23:13 CDT by Fritz Stuart
--- NOTE | 2019-07-02 11:37 | RAD REPORT ---
EXAM DESCRIPTION: CT - Abdomen Pelvis W Contrast - 06/29/2019 10:55 pm CLINICAL HISTORY: The patient is 63 years old and is Male; ABD PAIN TECHNIQUE: Axial computed tomography images of the abdomen and pelvis with intravenous contrast. S agittal and coronal reformatted images were created and reviewed. This CT exam was performed using one or more of the following dose reduction techniques: automated exposure control, adjustment of t he mA and/or kV according to patient size, and/or use of iterative reconstruction technique. COMPARISON: No relevant prior studies available. FINDINGS: LUNG BASES: Unremarkable. No mass. No consolidation. ABDOMEN: LIVER: The liver has a diffuse nodular contour. GALLBLADDER AND BILE DUCTS: Surgical clips are present in the right upper quadrant, consistent w ith previous cholecystectomy. PANCREAS: No ductal dilation. No mass. SPLEEN: The spleen is enlarged. ADRENALS: Unremarkable. No mass. KIDNEYS AND URETERS: Unremarkable. No solid mass. No hydronephrosis. STOMACH AND BOWEL: The stomach is minimally distended. The small bowel is normal in caliber. Sto ol is present throughout colon. No evidence of bowel obstruction. No significant bowel wall thickenin g. Colonic diverticulosis is noted, without associated inflammatory changes to suggest diverticulitis . PELVIS: APPENDIX: The appendix is surgically absent. BLADDER: Unremarkable. No mass. REPRODUCTIVE: Calcifications are present within the prostate. ABDOMEN and PELVIS: INTRAPERITONEAL SPACE: Unremarkable. No free air. No significant fluid collection. BONES/JOINTS: Multilevel degenerative change of the spine is present. SOFT TISSUES: The soft tissues are normal. VASCULATURE: Atherosclerosis of the vasculature is noted. The vessels are normal in caliber. N o abdominal aortic aneurysm. LYMPH NODES: Unremarkable. No enlarged lymph nodes. TUBES, LINES AND DEVICES: Epidural catheter is present with a battery pack in the right buttock. IMPRESSION: Colonic diverticulosis without evidence of diverticulitis. Electronically signed by: Martha Baker MD 06/29/2019 11:11 PM CDT Due to temporary technical issues with the PACS/Fluency reporting system, reports are being signed by the in house radiologist as a courtesy to ensure prompt reporting. The interpreting radiologist is f ully responsible for the content of the report.
== END 2019-06-30 02:00 | disposition home or self-care (01) ==
LOC: ER 20:35
DX: K70.30 Alcoholic cirrhosis of liver without ascites (principal); K70.9 Alcoholic liver disease, unspecified; I85.10 Secondary esophageal varices without bleeding; J40 Bronchitis, not specified as acute or chronic; R05 Cough; Z72.0 Tobacco use; Z71.6 Tobacco abuse counseling; I10 Essential (primary) hypertension; E03.9 Hypothyroidism, unspecified; F03.90 Unspecified dementia, unspecified severity, without behavioral disturbance, psychotic disturbance, mood disturbance, and anxiety; Z88.6 Allergy status to analgesic agent; Z88.8 Allergy status to other drugs, medicaments and biological substances
CPT/HCPCS: 93005; 87040 ×2; 87088; 85025; 87086; 80048; 36415; 82140; 83735; 85610; 80076; 83605; 81003; 84484; 83690; 84145; 83880; 74177; 71045; 96375; 96374; 99285; Q9967; J2270; J2405

== ENCOUNTER 2019-10-05 17:55 | Emergency (ER) | payer OTHER ==
--- OUTSIDE RECORDS SUMMARY | 2019-10-05 17:57 | XMS REPORT ---
:1955 [facility] [address] [place] [address] Care Team Providers Name Role Phone UNKNOWN, REFFERING Primary Care Provider Unavailable Payers Payer Name Policy Type Policy Number Effective Date Expiration Date Problems This patient has no known problems. Allergies, Adverse Reactions, Alerts Allergy Name Allergy Status Severity Reaction(s) Onset Inactive Treating Comments Type Date Date Clinician lisinopril DA Active LA 2018-09 00:00:0 0 Medications This patient has no known medications. Encounters Start End Encounter Admission Attending Care Care Encounter Date/Time Date/Time Type Type Clinicians Facility Department ID 2018-07-05 2018-07-05 Outpatient [facility] [id number] 00:00:00 00:00:00 2018-04-12 2018-04-12 Outpatient [facility] [id number] 10:24:00 10:24:00 2018-04-10 2018-04-10 Emergency [facility] [id number] 18:54:25 18:54:25 2018-04-10 2018-04-10 Emergency [facility] [id number] 16:19:51 16:19:51 2018-03-30 2018-03-30 Outpatient [facility] [id number] 14:36:51 14:36:51 2018-03-29 2018-03-29 Outpatient [facility] [id number] 15:19:09 15:19:09 2017-09-10 2017-09-10 Emergency [facility] [id number] 14:42:00 14:42:00 Results Test Description Test Time [...]
--- OUTSIDE RECORDS SUMMARY | 2019-10-05 17:57 | XMS REPORT ---
[...] End Status Dosage System Date Date Spironolactone [facility] 09754133077 25 MG Orally Active 1 tablet Levothyroxine [facility] [address]-40 175 MCG Orally Active 1 tablet Sodium Once a day on an empty stomach in the morning Ibuprofen ND 67793122502 600 MG Orally Jun 06Jun Active 1 tablet two times a day 2018 20, with food prn pain 2018 or milk as needed Protonix ND 09214185466 40 MG Orally Active 1 tablet Once a day Clonazepam ND 62986055625 0.5 MG Orally Active 1 tablet Once a day at bedtime Lipitor [facility] 68500710422 80 MG Orally Active 1 tablet Once a day Tamsulosin HCl [facility] 46907287152 0.4 MG Orally Active 1 capsule Once a day Trazodone HCl [facility] 17020934377 100 MG Orally Active 1 tablet Once a day at bedtime Levothyroxine [facility] 09390024651 175 MCG Orally February 21, Active 1 tablet Sodium Once a day 2018 on an empty stomach in the morning Cyanocobalamin [facility] [address]-49 1000 MCG Orally Active 1 tablet Once a day BuPROPion HCl ER [facility] 90881942470 150 MG Orally Active 1 tablet (Smoking Det) Once a day in the morning Results No Known Results Summary Purpose eClinicalWorks Submission
--- OUTSIDE RECORDS SUMMARY | 2019-10-05 17:57 | XMS REPORT ---
:1955 Author Organization e[employer] Care Team Providers Name Role Phone Young, Na Provider Role Unavailable Allergies No Known Allergies Problems Problem Type Condition Code Onset Dates Condition Status Assessment Hepatic encephalopathy K72.90 Active Assessment Prediabetes R73.03 Active Assessment Unspecified cirrhosis of liver K74.60 Active Assessment Esophageal varices without bleeding I85.00 Active Assessment Essential hypertension I10 Active Assessment Right hand pain M79.641 Active Assessment Acquired hypothyroidism E03.9 Active Problem Memory problem R41.3 Active Problem Unsteady gait R26.81 Active Problem Chronic viral hepatitis C B18.2 Active Problem Swelling R60.9 Active Problem Acquired hypothyroidism E03.9 Active Problem High cholesterol E78.00 Active Problem Circulation problem I99.9 Active Problem Abnormal heart rhythm I49.9 Active Problem Hepatic encephalopathy K72.90 Active Problem Needs flu shot Z23 Active Problem Depression F32.9 Active Problem Lumbar degenerative disc disease M51.36 Active Problem Right hand pain M79.641 Active Problem PTSD (post-traumatic stress F43.10 Active disorder) Problem Unspecified cirrhosis of liver K74.60 Active Problem Dementia with behavioral 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, unspecified dementia type Problem Esophageal varices without bleeding I85.00 Active Problem Prediabetes R73.03 Active Assessment Needs flu shot Z23 Active Problem Allergic rhinitis J30.9 Active Assessment PTSD (post-traumatic stress F43.10 Active disorder) Problem Essential hypertension I10 Active Problem Diverticulitis K57.92 Active Problem Anxiety F41.9 Active Problem Hepatitis K75.9 Active Problem Reflux K21.9 Active Problem Irritable bowel K58.9 Active Problem Mixed hyperlipidemia E78.2 Active Medications Medication Code Code Instructions Start End Status Dosage System Date Date Cyanocobalamin [facility] [address]-02 1000 MCG Orally Active 1 tablet Once a day Protonix [facility] 86482390087 40 MG Orally Active 1 tablet Once a day Levothyroxine [facility] [address]-80 175 MCG Orally Active 1 tablet Sodium Once a day on an empty stomach in the morning BuPROPion HCl ER [facility] 90004655971 150 MG Orally Active 1 tablet (Smoking Det) Once a day in the morning Tamsulosin HCl [facility] 01912781426 0.4 MG Orally Active 1 capsule Once a day Clonazepam [facility] 18049393511 0.5 MG Orally Active 1 tablet Once a day at bedtime Spironolactone [facility] 62223304795 25 MG Orally Active 1 tablet Lipitor [facility] 61247046272 80 MG Orally Active 1 tablet Once a day Trazodone HCl [facility] 11433057114 100 MG Orally Active 1 tablet Once a day at bedtime Levothyroxine [facility] 16792653401 175 MCG Orally Active 1 tablet Sodium Once a day on an empty stomach in the morning Results No Known Results Immunizations Vaccine Administration Date Flucelvax - multidose vial Aug 10, 2019 Summary Purpose eClinicalWorks Submission
[2019-10-05 18:50] LABS: Urine Blood TRACE (NEG); Urine Glucose NEGATIVE (NEG); Urine Protein NEGATIVE (NEG); Urine Specific Gravity 1.025 (1.005-1.030); Urine pH 5.5 (5.0-7.0)
[2019-10-05 19:12] LABS: Basophils % 1.2 % (0-1.3); Hematocrit 41.8 % (39.6-49.0); MPV 9.1 fL (7.6-11.3)
[2019-10-05 19:14] LABS: Protime INR 1.03
[2019-10-05 19:30] LABS: ALT/SGPT 20 U/L (12-78); AST/SGOT 16 U/L (15-37); Albumin 3.6 g/dL (3.4-5.0); Alkaline Phosphatase 73 U/L (45-117); BUN Blood Urea Nitrogen 14 mg/dL (7-18); Bicarbonate 27 mmol/L (21-32); Bilirubin Direct 0.1 mg/dL (0-0.2); Bilirubin Total 0.4 mg/dL (0.2-1.0); Glucose Level 106 mg/dL (74-106); Magnesium 1.8 mg/dL (1.8-2.4); NT PRO-BNP 157 pg/mL (<125); Potassium 3.7 mmol/L (3.5-5.1); Protein, Total 7.2 g/dL (6.4-8.2); Sodium Level 140 mmol/L (136-145); Troponin (Emerg Dept Use Only) < 0.02 ng/mL (0.0-0.045)
[2019-10-05] MEDS ORDERED: METOCLOPRAMIDE 10 MG/2mL INJ ONE (19:59)
[2019-10-05] MEDS ORDERED: NA CHLORIDE 0.9% 100 ML IV ONE (19:59)
--- NOTE | 2019-10-05 20:44 | RAD REPORT ---
EXAM DESCRIPTION: CT - Head Brain Wo Cont - 10/05/2019 8:07 pm CLINICAL HISTORY: Headache COMPARISON: 2016 TECHNIQUE: Computed axial tomography of the head was obtained. IV contrast was not requested. All CT scans are performed using dose optimization technique as appropriate and may include automated exposure control or mA/KV adjustment according to patient size. FINDINGS: An intracranial bleed is not seen . The ventricles are normal in caliber. No extra-axial fluid collection is noted. Fluid within the sinuses/ mastoids is not seen. IMPRESSION: No acute intracranial abnormality is seen. If patient's symptoms persist MRI of the bra in would be recommended.
[2019-10-05] MEDS ORDERED: FENTANYL CITR 100 MCG/2 ML ONE (20:46)
--- NOTE | 2019-10-05 21:04 | RAD REPORT ---
EXAM DESCRIPTION: CT - Abdomen Pelvis Wo Contrast - 10/05/2019 8:07 pm CLINICAL HISTORY: Abdominal pain COMPARISON: June 2019 TECHNIQUE: Computed axial tomography of the abdomen and pelvis was obtained. IV and oral contrast we re not requested. All CT scans are performed using dose optimization technique as appropriate and may include automated exposure control or mA/KV adjustment according to patient size. FINDINGS: The evaluation of solid organs, vessels and bowel is limited secondary to the lack of con trast administration. Cirrhosis, mild splenomegaly and varices subparagraph cholecystectomy Pancreas, adrenals and kidneys appear grossly normal No evidence of diverticulitis. A small left inguinal hernia contains fat. Spondylosis involves the lumbar spine resulting in spinal stenosis Spinal stimulator in place IMPRESSION: No acute abnormality is displayed.
--- NOTE | 2019-10-05 21:20 | ER ---
Nurse's Notes [facility] Name: Papito Barry Age: 64 yrs Sex: Male : 1955 Arrival Date: 10/05/2019 Time: 17:58 Bed 14 Private MD: Jemma Young Diagnosis: Headache;Generalized abdominal pain Presentation: 10/05 18:14 Presenting complaint: Patient states: was seen at Dr. Young's office today for high BP iw and headache and abd pain, was sent here for work up. Transition of care: patient was not received from another setting of care. Onset of symptoms was October 01, 2019. Risk Assessment: Do you want to hurt yourself or someone else? Patient reports no desire to harm self or others. Initial Sepsis Screen: Does the patient meet any 2 criteria? No. Patient's initial sepsis screen is negative. Does the patient have a suspected source of infection? No. Patient's initial sepsis screen is negative. Care prior to arrival: None. 18:14 Method Of Arrival: Ambulatory iw 18:14 Acuity: CARLOTA 3 iw Historical: - Allergies: 18:17 Lisinopril; iw 18:17 Propranolol; iw 18:17 NSAIDS; iw - Home Meds: 18:17 atorvastatin 80 mg Oral tab 1 tab once daily [Active]; bupropion HCl 150 mg Oral TbER 1 iw tab once daily [Active]; ibuprofen 600 mg Oral tab 1 tab twice a day [Active]; lactulose 10 gram/15 mL Oral soln 15 mL 3 times per day [Active]; Lasix 20 mg Oral tab 1 tab once daily [Active]; levothyroxine 175 mcg tab 1 tab once daily [Active]; pantoprazole 40 mg Oral TbEC 1 tab once daily [Active]; tamsulosin 0.4 mg Oral cp24 1 cap once daily [Active]; trazodone 100 mg Oral tab 1 tab nightly [Active]; Vitamin B-12 1,000 mcg Oral tab daily [Active]; - PMHx: 18:17 colon polyps removed; Anemia; CAD; cardiomyopathy; Cirrhosis; Dementia; Hepatitis; iw hepititis C-gone now; Hypothyroidism; Hypertension; varacies; - PSHx: 18:17 amputation right BKA; Appendectomy; BACK SURGERY; SPINAL STIMULATOR; neck surg; iw Cholecystectomy; fasciotomy to left lower leg; - Immunization history:: Adult Immunizations up to date. - Social history:: Smoking status: . - Ebola Screening: : Patient negative for fever greater than or equal to 101.5 degrees Fahrenheit, and additional compatible Ebola Virus Disease symptoms Patient denies exposure to infectious person Patient denies travel to an Ebola-affected area in the 21 days before illness onset No symptoms or risks identified at this time. Screenin:15 Abuse screen: Denies threats or abuse. Nutritional screening: No deficits noted. tr5 Tuberculosis screening: No symptoms or risk factors identified. Fall Risk None identified. Assessment: 18:15 General: Appears uncomfortable, Behavior is calm, cooperative, appropriate for age. tr5 Pain: Complains of pain in face. Neuro: Level of Consciousness is awake, alert, obeys commands, Oriented to person, place, time, [employer]iconductor Lab Technician are equal bilaterally Moves all extremities. Reports headache. Cardiovascular: Heart tones present Capillary refill < 3 seconds. Respiratory: Airway is patent Respiratory effort is even, unlabored, Respiratory pattern is regular, symmetrical. GI: Reports lower abdominal pain, upper abdominal pain. : No signs and/or symptoms were reported regarding the genitourinary system. EENT: No signs and/or symptoms were reported regarding the EENT system. Derm: No signs and/or symptoms reported regarding the dermatologic system. Musculoskeletal: No signs and/or symptoms reported regarding the musculoskeletal system. 19:40 General: Appears in no apparent distress. uncomfortable, Behavior is calm, cooperative, rr5 appropriate for age. Pain: Complains of pain in headache Pain does not radiate. Pain currently is 7 out of 10 on a pain scale. Quality of pain is described as aching, Pain began gradually, Is continuous. 19:40 Neuro: Level of Consciousness is awake, alert, obeys commands, Oriented to person, rr5 place, time, situation. Cardiovascular: Reports HTN and headache Capillary refill < 3 seconds. Respiratory: Airway is patent Respiratory effort is even, unlabored, Respiratory pattern is regular, symmetrical. GI: Reports lower abdominal pain, upper abdominal pain. : No signs and/or symptoms were reported regarding the genitourinary system. EENT: No signs and/or symptoms were reported regarding the EENT system. Musculoskeletal: No signs and/or symptoms reported regarding the musculoskeletal system. 20:40 Reassessment: Patient appears in no apparent distress at this time. Patient is alert, rr5 oriented x 3, equal unlabored respirations, skin warm/dry/pink. Patient states symptoms have not improved. 20:40 Pain: Complains of pain in headache Pain does not radiate. Pain currently is 7 out of rr5 10 on a pain scale. Quality of pain is described as aching, Pain began gradually, Is continuous. 21:15 Reassessment: Patient appears in no apparent distress at this time. Patient and/or rr5 family updated on plan of care and expected duration. Pain level reassessed. Patient is alert, oriented x 3, equal unlabored respirations, skin warm/dry/pink. awaiting for review. 21:15 Pain: Pain currently is 5 out of 10 on a pain scale. rr5 21:40 Reassessment: Patient appears in no apparent distress at this time. Patient is alert, rr5 oriented x 3, equal unlabored respirations, skin warm/dry/pink. patient refused to take morphine cause no one will pick him up and he wants to be discharge now. ED provider aware. discharge instruction given and explained without complaints made. Vital Signs: 18:18 BP 176 / 93; Pulse 81; Resp 16; Temp 98.5; Pulse Ox 98% on R/A; Weight 95.71 kg; Height iw 5 ft. 10 in. (177.80 cm); Pain 7/10; 20:45 BP 133 / 75; Pulse 80; Resp 17; Temp 98.3; Pulse Ox 99% ; Pain 7/10; rr5 18:18 Body Mass Index 30.28 (95.71 kg, 177.80 cm) ED Course: 17:58 Patient arrived in ED. mr 17:58 Jemma Young MD is Private Physician. mr 18:10 [facility] 18:10 Daniel Cooper MD is Attending Physician. [facility] 18:16 Triage completed. 18:18 Arm band placed on. 18:22 Urine Dipstick--Ancillary (enter results) Sent. [facility] 18:28 Radiology exam delayed due to lab results not completed at this time. (BUN/Creatinine) nj IV insertion attempt and/or patient not having appropriate IV at this time. 18:46 Patient has correct armband on for positive identification. Bed in low position. Call [facility] light in reach. 18:46 Missed attempt(s): 20 gauge in left antecubital area. mh5 18:48 Pulse ox on. NIBP on. 5 18:50 Nate La, GHASSAN is Primary Nurse. tr5 20:00 Inserted saline lock: 24 gauge in right hand, using aseptic technique. rr5 20:07 CT Head Brain wo Cont In Process Unspecified. EDMS 20:07 Abdomen In Process Unspecified. EDMS 20:15 Notified Nurse Practitioner and/or Physician Inventory Accountant of a critical lab result(s), wbc rr5 21.1 faizan from laboratory. 20:44 EKG done, by ED staff, reviewed by Rd SANTILLAN. rr5 21:19 Jemma Young MD is Referral Physician. [facility] 21:40 No provider procedures requiring assistance completed. IV discontinued, intact, rr5 bleeding controlled, No redness/swelling at site. Pressure dressing applied. Administered Medications: 20:29 Drug: Reglan 10 mg Route: IVP; Site: right hand; rr5 21:30 Follow up: Response: No adverse reaction rr5 20:47 Drug: fentaNYL (PF) 25 mcg {Note: rass 0.} Route: IVP; Site: right hand; rr5 21:30 Follow up: Response: No adverse reaction; Pain is decreased; RASS: Alert and Calm (0) rr5 21:47 Not Given (Patient Refused): morphine 4 mg IVP once; RASS on ADMIN: Combtv4, Very rr5 Agttd3, Agttd2, Rstlss1, AlertClm0, Drwsy-1, Lt Sdtn-2, Mod Sdtn-3, Dp Sdtn-4, UnArsble-5 Outcome: 21:19 Discharge ordered by . [facility] 21:45 Discharged to home ambulatory. rr5 21:45 Condition: stable 21:45 Discharge instructions given to patient, Instructed on discharge instructions, follow up and referral plans. medication usage, Demonstrated understanding of instructions, follow-up care, medications, Prescriptions given X 1. 21:48 Patient left the ED. rr5 Signatures: Dispatcher [employer] EDSC Rd Bashir PA PA jmm Rivera, Mary mr Williams, Irene, RN RN iw Jordan, Nathan nj Martinez, Maria [facility] Saw Leon RN RN rr5 Nate La RN RN tr5 Corrections: (The following items were deleted from the chart) 20:30 20:15 Notified ED physician of a critical lab result(s). wbc 21.1 faizan from rr5 laboratory rr5 10/06 01:10 10/05 18:15 GI: No signs and/or symptoms were reported involving the gastrointestinal rr5 system. tr5
--- NOTE | 2019-10-05 21:20 | EDPHYS ---
Physician Documentation [facility] Name: Papito Barry Age: 64 yrs Sex: Male : 1955 Arrival Date: 10/05/2019 Time: 17:58 Bed 14 Private MD: Jemma Young ED Physician Daniel Cooper HPI: 10/05 18:16 This 64 yrs old Male presents to ER via Ambulatory with complaints of High jmm Blood Pressure, Headache, Abdominal Pain. 18:16 The patient presents with abdominal pain. jmm 18:16 Onset: The symptoms/episode began/occurred gradually, 2 week(s) ago. jmm 18:16 The symptoms do not radiate. Associated signs and symptoms: Pertinent positives: jmm diarrhea. This is a 64 year old male with a history of liver cirrhosis, CAD, that presents to the ED with complaints of abdominal pain and diarrhea beginning approx 2 week ago. Patient attributes this to lactualose and was evaluated at the [facility] for similar pain. Patient was evaluated by pcp today with additional complaints of bilateral christian pain, blurred vision, and headache beginning approx 2 days ago. Denies fever. . Historical: - Allergies: 18:17 Lisinopril; iw 18:17 Propranolol; iw 18:17 NSAIDS; iw - Home Meds: 18:17 atorvastatin 80 mg Oral tab 1 tab once daily [Active]; bupropion HCl 150 mg Oral TbER 1 iw tab once daily [Active]; ibuprofen 600 mg Oral tab 1 tab twice a day [Active]; lactulose 10 gram/15 mL Oral soln 15 mL 3 times per day [Active]; Lasix 20 mg Oral tab 1 tab once daily [Active]; levothyroxine 175 mcg tab 1 tab once daily [Active]; pantoprazole 40 mg Oral TbEC 1 tab once daily [Active]; tamsulosin 0.4 mg Oral cp24 1 cap once daily [Active]; trazodone 100 mg Oral tab 1 tab nightly [Active]; Vitamin B-12 1,000 mcg Oral tab daily [Active]; - PMHx: 18:17 colon polyps removed; Anemia; CAD; cardiomyopathy; Cirrhosis; Dementia; Hepatitis; iw hepititis C-gone now; Hypothyroidism; Hypertension; varacies; - PSHx: 18:17 amputation right BKA; Appendectomy; BACK SURGERY; SPINAL STIMULATOR; neck surg; iw Cholecystectomy; fasciotomy to left lower leg; - Immunization history:: Adult Immunizations up to date. - Social history:: Smoking status: . - Ebola Screening: : Patient negative for fever greater than or equal to 101.5 degrees Fahrenheit, and additional compatible Ebola Virus Disease symptoms Patient denies exposure to infectious person Patient denies travel to an Ebola-affected area in the 21 days before illness onset No symptoms or risks identified at this time. ROS: 18:16 Constitutional: Negative for fever, chills, and weight loss, Cardiovascular: Negative jmm for chest pain, palpitations, and edema, Respiratory: Negative for shortness of breath, cough, wheezing, and pleuritic chest pain. 18:16 Eyes: Positive for blurry vision. 18:16 Abdomen/GI: Positive for abdominal pain. 18:16 Neuro: Positive for headache. 18:16 All other systems are negative. Exam: 18:16 Constitutional: This is a well developed, well nourished patient who is awake, alert, jmm and in no acute distress. Head/Face: atraumatic. Eyes: EOMI, no conjunctival erythema appreciated ENT: Moist Mucus Membranes Neck: Trachea midline, Supple Chest/axilla: Normal chest wall appearance and motion. Cardiovascular: Regular rate and rhythm. No edema appreciated Respiratory: Normal respirations, no respiratory distress appreciated 18:16 Back: Normal ROM Skin: General appearance color normal MS/ Extremity: Moves all extremities, no obvious deformities appreciated, no edema noted to the lower extremities Neuro: Awake and alert, normal gait Psych: Behavior is normal, Mood is normal, Patient is cooperative and pleasant 18:16 Abdomen/GI: Inspection: abdomen appears normal, Bowel sounds: normal, Palpation: abdomen is soft and non-tender, in all quadrants. 18:16 Back: pain. Vital Signs: 18:18 BP 176 / 93; Pulse 81; Resp 16; Temp 98.5; Pulse Ox 98% on R/A; Weight 95.71 kg; Height iw 5 ft. 10 in. (177.80 cm); Pain 7/10; 20:45 BP 133 / 75; Pulse 80; Resp 17; Temp 98.3; Pulse Ox 99% ; Pain 7/10; rr5 18:18 Body Mass Index 30.28 (95.71 kg, 177.80 cm) iw MDM: 18:16 Patient medically screened. jmm 21:18 Data reviewed: vital signs, nurses notes. Counseling: I had a detailed discussion with [facility] the patient and/or guardian regarding: the historical points, exam findings, and any diagnostic results supporting the discharge/admit diagnosis, lab results, radiology results, the need for outpatient follow up, to return to the emergency department if symptoms worsen or persist or if there are any questions or concerns that arise at home. Refusal of service: The patient/guardian displays adequate decision making capability and despite a detailed discussion of alternatives, benefits, risks, and consequences refuses: Lumbar Puncture procedure. ED course: Labs unremarkable. Patient is advised to follow up with neuro for further evaluation of headache and otherwise given strict return precautions. Patient understood and agrees with the plan of care. . 10/05 18:19 Order name: Urine Dipstick--Ancillary (enter results); Complete Time: 19:02 10/05 18:24 Order name: Basic Metabolic Panel; Complete Time: 19:35 [facility] 10/05 18:24 Order name: CBC with Diff; Complete Time: 19:20 [facility] 10/05 18:24 Order name: LFT's; Complete Time: 19:35 [facility] 10/05 18:24 Order name: Magnesium; Complete Time: 19:35 [facility] 10/05 18:24 Order name: NT PRO-BNP; Complete Time: 19:35 [facility] 10/05 18:24 Order name: PT-INR; Complete Time: 19:20 [facility] 10/05 18:24 Order name: Troponin (emerg Dept Use Only); Complete Time: 19:35 [facility] 10/05 18:25 Order name: AMMONIA; Complete Time: 19:35 [facility] 10/05 18:25 Order name: CT Head Brain wo Cont; Complete Time: 20:58 [facility] 10/05 18:25 Order name: ESR; Complete Time: 19:35 [facility] 10/05 20:04 Order name: Abdomen ; Complete Time: 21:10 [facility] 10/05 18:24 Order name: EKG; Complete Time: 18:25 [facility] 10/05 18:24 Order name: Cardiac monitoring; Complete Time: 20:36 [facility] 10/05 18:24 Order name: EKG - Nurse/Tech; Complete Time: 20:44 [facility] 10/05 18:24 Order name: IV Saline Lock; Complete Time: 20:44 [facility] 10/05 18:24 Order name: Labs collected and sent; Complete Time: 19:08 [facility] 10/05 18:24 Order name: O2 Per Protocol; Complete Time: 19:08 [facility] 10/05 18:24 Order name: O2 Sat Monitoring; Complete Time: 19:08 [facility] Administered Medications: 20:29 Drug: Reglan 10 mg Route: IVP; Site: right hand; rr5 21:30 Follow up: Response: No adverse reaction rr5 20:47 Drug: fentaNYL (PF) 25 mcg {Note: rass 0.} Route: IVP; Site: right hand; rr5 21:30 Follow up: Response: No adverse reaction; Pain is decreased; RASS: Alert and Calm (0) rr5 21:47 Not Given (Patient Refused): morphine 4 mg IVP once; RASS on ADMIN: Combtv4, Very rr5 Agttd3, Agttd2, Rstlss1, AlertClm0, Drwsy-1, Lt Sdtn-2, Mod Sdtn-3, Dp Sdtn-4, UnArsble-5 Disposition: 10/05/19 21:19 Discharged to Home. Impression: Headache, Generalized abdominal pain. - Condition is Stable. - Discharge Instructions: Abdominal Pain, Adult, General Headache Without Cause. - Medication Reconciliation Form, Thank You Letter, Antibiotic Education, Prescription Opioid Use form. - Follow up: Jemma Young MD; When: 2 - 3 days; Reason: Recheck today's complaints, Continuance of care, Re-evaluation by your physician. Addendum: 10/11/2019 07:07 Co-signature as Attending Physician, Daniel Cooper MD. r n Signatures: Dispatcher [employer] EDID Rd Bashir PA PA [facility] Selene Hagan RN RN iw Nieto, Roman, MD MD rn Roque, Raymond RN RN rr5 Nate La RN RN tr5 Corrections: (The following items were deleted from the chart) 10/05 20:04 18:27 Abdomen Pelvis W Con+CT.RAD.BRZ ordered. EDID EDID 20:56 18:16 The patient presents with abdominal pain [facility] 21:48 21:19 10/05/2019 21:19 Discharged to Home. Impression: Headache; Generalized abdominal rr5 pain. Condition is Stable. Forms are Medication Reconciliation Form, Thank You Letter, Antibiotic Education, Prescription Opioid Use. Follow up: Jemma Young; When: 2 - 3 days; Reason: Recheck today's complaints, Continuance of care, Re-evaluation by your physician. victor manuel
[2019-10-05] MEDS ORDERED: MORPHINE 4 MG/ML SYR ONE (21:30)
[2019-10-05 23:32] VITALS: BP 133/75; TEMP 98.3; O2SAT 99
--- NOTE | 2019-10-06 15:32 | EKG ---
Test Date: 2019-10-05 Test Time: 20:41:00 Cpa Tax: RR MEASUREMENT RESULTS: Intervals: Rate: 67 VT: 168 QRSD: 88 QT: 432 QTc: 456 Branch: P: 35 VT: 168 QRS: 69 T: 23 INTERPRETIVE STATEMENTS: Normal sinus rhythm Normal ECG Compared to ECG 06/29/2019 21:54:13 No significant changes Electronically Signed On 10-06-19 15:30:50 MANAGEMENT ASSOCIATE by Fritz Stuart
== END 2019-10-05 21:48 | disposition home or self-care (01) ==
LOC: ER 17:55
DX: R51 Headache (principal); R10.84 Generalized abdominal pain; I10 Essential (primary) hypertension; E03.9 Hypothyroidism, unspecified; I25.10 Atherosclerotic heart disease of native coronary artery without angina pectoris; Z88.8 Allergy status to other drugs, medicaments and biological substances; Z88.6 Allergy status to analgesic agent
CPT/HCPCS: 93005; 85025; 80048; 36415; 82140; 83735; 85610; 80076; 85652; 81003; 84484; 83880; 70450; 74176; 96375; 96374; 99284; J2765; J3010

== ENCOUNTER 2020-10-31 15:49 | Emergency (ER) | payer OTHER ==
--- OUTSIDE RECORDS SUMMARY | 2020-10-31 16:03 | XMS REPORT | Clinical Summary ---
:1955 Author Organization [facility] Address [address] [place] [address] Care Team Providers Name Role Phone Asked, No Pcp Primary Care Provider Unavailable Allergies Active Allergy Reactions Severity Noted Date Comments Lisinopril 01/03/2019 Hypotension, bl ood pressure drops too quickly Medications Medication Sig Dispensed Refills Start Date End Date Status lactulose 20 gram/30 mL Take 20 g by 0 Active solution mouth 3 (three) times a day. atorvastatin (LIPITOR) Take 80 mg by 0 Active 80 MG tablet mouth daily. buPROPion SR (WELLBUTRIN Take 150 mg by 0 Active SR) 150 MG 12 hr tablet mouth 2 (two) times a day. levothyroxine Take 175 mcg by 0 Active (SYNTHROID, LEVOXYL) 175 mouth every mcg tablet morning. guaiFENesin (MUCINEX) Take 600 mg by 0 Active 600 mg tablet extended mouth 2 (two) release 12hr times a day. tamsulosin (FLOMAX) 0.4 Take 0.4 mg by 0 Active mg capsule mouth nightly. spironolactone Take 12.5 mg by 0 Active (ALDACTONE) 25 MG tablet mouth daily. traZODone (DESYREL) 100 Take 100 mg by 0 Active MG tablet mouth nightly as needed for sleep. furosemide (LASIX) 20 mg Take 20 mg by 0 Active tablet mouth daily. pantoprazole (PROTONIX) Take 40 mg by 0 Active 40 MG EC tablet mouth daily. Active Problems Not on file Social History Tobacco Use Types Packs/Day Years Used Date Never Assessed Sex Assigned at Date Recorded Not on file Last Filed Vital Signs Not on file Plan of Treatment Health Maintenance Due Date Last Done Comments COVID-19 VACCINE (1 of 2) 1972 COLONOSCOPY SCREENING 2006 SHINGLES VACCINES (#1) 2006 INFLUENZA VACCINE 05/17/2020 Results Not on fileafter 10/31/2019 Insurance Payer Benefit Plan / Subscriber ID Effective Dates Phone Addre ss Type Group [employer] [id number] [facility] Advance Directives For more information, please contact: [phone] Type Date Recorded 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
--- OUTSIDE RECORDS SUMMARY | 2020-10-31 16:03 | XMS REPORT | Clinical Summary ---
:1955 Demographics Home Phone Preferred Language ENG Marital Status Confucianism Affiliation Unknown Race Unknown Ethnic Group Unknown Author Organization [facility] Address [address] [place] [address] Care Team Providers Name Role Phone Unavailable Primary Care Provider Unavailable Allergies Active Allergy Reactions Severity Noted Date Comments Lisinopril Anaphylaxis High 04/10/2018 Medications Medication Sig Dispensed Refills Start Date End Date Status Levothyroxine 100 mcg cap Take by mouth. 0 Active Active Problems Problem Noted Date Constipation 04/10/2018 Polysubstance dependence in early, early partial, sust ained full, or 03/20/2018 sustained partial remission Confusion Herpes zoster without complication Left lower quadrant pain Family History Medical History Relation Name Comments Colon cancer Other Relation Name Status Comments Other Social History Tobacco Use Types Packs/Day Years Used Date Current Every Day Smoker 0.5 40 Smokeless Tobacco: Never Used Tobacco Cessation: Ready to Quit: No Alcohol Use Drinks/Week oz/Week Comments No Sex Assigned at Date Recorded Not on file Last Filed Vital Signs Not on file Plan of Treatment Health Maintenance Due Date Last Done Comments FIT Colorectal Cancer Scrn 2006 IMM Influenza Seasonal Jul to December (>/= 19 yrs) 07/17/2020 Results Not on fileafter 10/31/2019 Insurance Payer Benefit Plan / Subscriber ID Effective Phone Address T ype Group Dates [facility] [id number] 2018-Pres [phone] [id number] [facility] [address] [place] [address] MEDICARE [facility] MEDICARE PART A [id number] 2003-Pres [phone] 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 (Home) [address] [place] [address]
--- OUTSIDE RECORDS SUMMARY | 2020-10-31 16:03 | XMS REPORT | Continuity of Care Document ---
:1955 Author Organization [facility] t Address [address] [place] [address] Care Team Providers Name Role Phone UNKNOWN Primary Care Physician Unavailable Rae FERRELL Attending Clinician Singer GILLILAND Attending Clinician Valentin PETERSON S Attending Clinician Rod PETERSON Attending Clinician Doctor Unassigned, Name Attending Clinician Unavailable Shawn CARD Attending Clinician Rod PETERSON Admitting Clinician Payers Payer Name Policy Type Policy Number Effective Date Expiration Date S ource Problems Condition Condition Condition Status Onset Resolution Last Treating Co mments Source Name Details Category Date Date Treatment Clinician Date Constipati Constipati Disease Active 2017-0 H arris on on 04-10 Health 00:00: 00 Polysubsta Polysubsta Disease Active 2017-0 H arris nce nce 03-20 Health dependence dependence 00:00: in early, in early, 00 early early partial, partial, sustained sustained full, or full, or sustained sustained partial partial remission remission Memory Memory Problem Active [facility] Acquired Acquired Problem [facility] hypothyroi hypothyroi [place] - dism dism [facility] Unsteady Unsteady Problem Active [facility] Allergic Allergic Problem Active [facility] Abnormal Abnormal Problem Active [facility] heart heart [facility] rhythm rhythm [facility] Anxiety Anxiety Problem [facility] Essential Essential Problem Active [facility] hypertensi hypertensi [place] - on on [facility]ics Lumbar Lumbar Problem Active [facility] degenerati degenerati [place] [facility] - ve disc ve disc [facility] disease disease l [facility] PTSD PTSD Problem Active [facility] (post-trau (post-trau [place] - matic matic Memoria stress stress l disorder) disorder) Outp ati ent Clinics Diverticul Diverticul Problem Active [facility] itis itis [facility] Depression Depression Problem [facility] Unspecifie Unspecifie Problem Active [facility] cirrhosis cirrhosis Noel marah of liver of liver l [facility] 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 [facility] hepatitis hepatitis Noel marah C [facility] Circulatio Circulatio Problem Active [facility] n problem n problem [facility] Dementia Dementia Problem Active [facility] with with [facility] behavioral behavioral Me moria disturbanc disturbanc l e, e, Outpati unspecifie unspecifie en t d dementia d dementia Cl inics type type Irritable Irritable Problem Active [facility] bowel bowel [facility] Mixed Mixed Problem Active [facility] hyperlipid hyperlipid [place] emia emia [facility] Swelling Swelling Problem [facility] Hepatitis Hepatitis Problem Active [facility] High High Problem Active [facility] cholestero cholestero [place] - l l [facility] Reflux Reflux Problem [facility] Esophageal Esophageal Problem Active [facility] varices varices [facility] without without [facility] bleeding bleeding l Outpati ent Clinics Right hand Right hand Problem Active [facility] pain pain [facility]ics Hepatic Hepatic Problem Active [facility] encephalop encephalop [place] [facility] - athy athy [facility]oria [facility] ent Clinics Prediabete Prediabete Problem Active [facility] Needs flu Needs flu Problem Active [facility] shot shot [facility] Acute non Acute non Problem Active [facility] intractabl intractabl [place] [facility] - e e [facility] tension-ty tension-ty l pe pe Outpati headache headache ent Clinics Benign Benign Problem Active [facility] prostatic prostatic Luke s - hyperplasi hyperplasi Me moria a with a with l lower lower [facility] urinary urinary ent tract tract Clinics symptoms symptoms Dyskinesia Dyskinesia Problem Active [facility] Seasonal Seasonal Problem Active [facility] allergies allergies [facility] Confusion Confusion Disease Active [facility] Herpes Herpes Disease Active [place] [facility] without without complicati complicati on on Left lower Left lower Disease Active H arris quadrant quadrant Health pain pain Allergies, Adverse Reactions, Alerts Allergy Allergy Status Severity Reaction(s) Onset Inactive Treating Comm ents Source Name Type Date Date Clinician Lisinopr Propensi Active Hypotensi Gricelda ston il ty to 3-20 on, blood Methodi adverse 00:00: pressure st reaction 00 drops too s to quickly drug lisinopr DA Active DC 2017-10 [facility] 2-22 Clear 00:00: Ambrose 00 [facility] Lisinopr Propensi Active Anaphylaxis H arris il ty to 6-25 Health adverse 00:00: reaction 00 s to drug Lisinopr Adverse Active pass out [facility] Family History Family Member Diagnosis Comments Start Date Stop Date Source Other Colon cancer [facility] Social History Social Habit Start Date Stop Date Quantity Comments Source Sex Assigned At [place] [facility] Cigarettes smoked 2018-04-10 2018-04-10 [facility] current (pack per 00:00:00 00:00:00 day) - Reported Cigarette 2018-04-10 2018-04-10 Michael [employer] pack-years 00:00:00 00:00:00 Tobacco use and 2018-04-10 2018-04-10 Never used Alec Chou alth exposure 00:00:00 00:00:00 Alcohol intake 2018-04-10 2018-04-10 Current Alec Briones lth 00:00:00 00:00:00 non-drinker of alcohol (finding) Smoking Status Start Date Stop Date Source Current every day smoker 2018-04-10 00:00:00 [facility] [employer] Medications Ordered Filled Start Stop Current Ordering Indication Dosage Frequency Signature Comments Components Source Medication Medication Date Date Medication? Clinician (SIG) Name Name Joie Charlesithrommansoori 2019-0 2020- No Na Young [address] [facility] n 04-14 on the [facility] - 00:00: 00:00 first day, Memori a 00 :00 then 1 l tablet Outpati daily for ent 4 days Clinics atorvastati 2018-0 Yes 80mg QD Take 80 mg [place] n (LIPITOR) 3-20 by mouth Meth bala 80 MG 14:02: daily. st tablet 24 lactulose 2018-0 Yes 20g [id number] Take 20 g [place] 20 gram/30 3-20 [id number] by mouth 3 Methodi mL solution 13:50: 3D (three) st 13 times a day. buPROPion 2018-0 Yes 150mg Q.5D Take 150 Gricelda ston SR 3-20 mg by Methodi (WELLBUTRIN 13:50: mouth 2 st SR) 150 MG 13 (two) 12 hr times a tablet day. levothyroxi 2018-0 Yes 175ug QD Take 175 [place] ne 3-20 mcg by Methodi (SYNTHROID, 13:50: mouth st LEVOXYL) 13 every 175 mcg morning. tablet guaiFENesin 2018-0 Yes 600mg Q.5D Take 600 [place] (MUCINEX) 3-20 mg by Methodi 600 mg 13:50: mouth 2 st tablet 13 (two) extended times a release day. 12hr tamsulosin 2018-0 Yes .4mg QD Take 0.4 Gricelda ston (FLOMAX) 3-20 mg by Methodi 0.4 mg 13:50: mouth st capsule 13 nightly. spironolact 2019-0 Yes 12.5mg QD Take 12.5 [place] one 3-20 mg by Methodi (ALDACTONE) 13:50: mouth st 25 MG 13 daily. tablet traZODone Yes 100mg QD Take 100 G[place]da ston (DESYREL) 3-20 mg by Methodi 100 MG 13:50: mouth st tablet 13 nightly as needed for sleep. furosemide Yes 20mg QD Take 20 mg [place] (LASIX) 20 3-20 by mouth Metho di mg tablet 13:50: daily. st 13 pantoprazol Yes 40mg QD Take 40 mg [place] e 3-20 by mouth Methodi (PROTONIX) 13:50: daily. st 40 MG EC 13 tablet Levothyroxi Yes Take by Henri ris ne 100 mcg 6-25 mouth. Health cap 21:03: 09 Immunizations Ordered Filled Immunization Date Status Comments [facility] Immunization Name Name Flucelvax - Flucelvax - 2019-08-[address] [facility] [address] [place] - multidose vial multidose vial 00:00:[address] Outpatient Clinics Procedures This patient has no known procedures. Plan of Care Planned Activity Planned Date Details Comments Source Future Scheduled 2020-07-17 IMM Influenza [facility] Hea lt Test 00:00:00 Seasonal Jul to December (>/= 19 yrs) [code = IMM Influenza Seasonal Jul to December (>/= 19 yrs)] Future Scheduled 2020-05-17 INFLUENZA VACCINE [place] [facility] Test 00:00:00 [code = INFLUENZA VACCINE] Future Scheduled 2006 COLONOSCOPY SCREENING [place] [facility] Test 00:00:00 [code = COLONOSCOPY SCREENING] Future Scheduled 2006 SHINGLES VACCINES [place] [facility] Test 00:00:00 (#1) [code = SHINGLES VACCINES (#1)] Future Scheduled 2006 Screening for [facility]a lth Test 00:00:00 malignant neoplasm of colon (procedure) [code = 567397192] Future Scheduled 1972 COVID-19 VACCINE (1 [place] [facility] Test 00:00:00 of 2) [code = COVID-19 VACCINE (1 of 2)] Encounters Start End Encounter Admission Attending Care Care Encounter Source Date/Time Date/Time Type Type Clinicians Facility Department ID 2020-07-15 2020-07-15 Transition Gera Mcbride [id number] 00:00:00 00:00:00 of Care Idalia Hamilton [id number] [place] [id number] 2020-07-14 2020-07-14 Gera Griffiths [id number] 00:00:00 00:00:00 of Care Idalia Hamilton [id number] [place] [id number] 2020-07-09 2020-07-11 Emergency AlvaradoZachariah menchaca [facility] [id number] 16:30:00 16:33:00 Patricia Hanson [id number] Lisandra Velasco [id number] [place] [id number] 2020-07-09 2020-07-09 Orders Doctor ALVARADO [id number] 00:00:00 00:00:00 Only Unassigned, TIMO [id number] [place] [facility] [id number] 2020-04-09 2020-04-09 [facility] [id number] 09:20:00 09:20:00 t [employer] [facility] 2020-04-08 2020-04-08 [facility] [id number] 13:18:00 13:18:00 t [employer] [facility] Medicine Outpati ent Clinics 2020-03-20 2020-03-20 [facility] [id number] [address] 09:21:00 09:21:00 [place] [employer] [facility] Medicine l Medicine Outpati ent Clinics 2020-01-22 2020-01-22 [facility] [id number] 10:46:00 10:46:00 t [place] [employer] [facility] Medicine Outpati ent Clinics 2020-01-22 2020-01-22 [facility] [id number] 10:40:00 10:40:00 t [place] [employer] [facility] Medicine Medicine Outpati ent Clinics 2019-12-14 2019-12-14 Emergency [facility] [id number] 13:50:40 17:15:00 Wendi Sylvester [id number] [place] [id number] [place] [id number] 2019-11-23 2019-11-23 [facility] [id number] 09:20:00 09:20:00 t [place] [employer] [facility] Medicine l Medicine Outpati ent Clinics 2019-11-23 2019-11-23 [facility] [id number] 09:20:00 09:20:00 t [place] [employer] [facility] Medicine l Medicine Outpati ent Clinics 2019-10-26 2019-10-26 [facility] [id number] 13:00:00 13:00:00 [place] [employer] [facility] Medicine l Medicine Outpati ent Clinics 2019-10-16 2019-10-16 [facility] [id number] 11:00:00 11:00:00 t [place] [employer] [facility] Medicine Outpati ent Clinics 2019-10-05 2019-10-05 [facility] [id number] 14:00:00 14:00:00 [place] [employer] - [employer] [facility] Medicine l Medicine Outpati ent Clinics 2019-08-10 2019-08-10 [facility] [id number] 15:20:00 15:20:00 [place] [employer] s - [employer] [facility] Medicine l Medicine Outpati ent Clinics 2019-06-06 2019-06-06 [facility] [id number] 11:20:00 11:20:00 [place] [employer] - [address] [facility] l Medicine Outpati ent Clinics 2019-02-19 2019-02-19 [facility] [id number] 15:40:00 15:40:00 t [facility] Medicine Outpati ent Clinics 2018-07-05 2018-07-05 Outpatient [facility] [id number] [facility] 00:00:00 00:00:00 2018-04-12 2018-04-12 Outpatient [facility] [id number] [facility] 10:24:00 10:24:00 2018-04-10 2018-04-10 Emergency [facility] [id number] Michael 18:54:25 18:54:25 Health 2018-04-10 2018-04-10 Emergency [facility] [id number] Michael 16:19:51 16:19:51 Health 2018-03-30 2018-03-30 Outpatient [facility] [id number] [facility] 14:36:51 14:36:51 2018-03-29 2018-03-29 Outpatient [facility] [id number] [facility] 15:19:09 15:19:09 2017-09-10 2017-09-10 Emergency E [facility] MED [id number] [facility] 14:42:00 14:42:00 Results Test Description Test Time Test Comments Results Result [facility] Comments CT LUMBAR SPINE 2017-09-10 PROCEDURE: CT OF THE LTD W/O CONTRAST 16:43:[address] OF THE LUMBAR SPINECLINICAL HISTORY: [...] of the lumbar spine. CT CERVICAL SPINE 2017-09-10 PROCEDURE: CT OF THE LTD W/O CONTRAS 16:43:[address] OF THE LUMBAR SPINECLINICAL HISTORY: [...]
[2020-10-31 17:50] LABS: Basophils % 0.5 % (0-1.3); Hematocrit 42.9 % (39.6-49.0); Lymphocytes % 12.9 % (15.3-44.8); MPV 9.6 fL (7.6-11.3); RBC Red Blood Cell Count 4.74 M/uL (4.33-5.43)
[2020-10-31] MEDS ORDERED: MORPHINE 4 MG/ML SYR ONE (17:57)
[2020-10-31] MEDS ORDERED: ONDANSETRON 4 MG/2 ML VIAL ONE (17:57)
--- NOTE | 2020-10-31 18:00 | RAD REPORT ---
EXAM DESCRIPTION: CT - CTHCSPWOC - 10/31/2020 5:46 pm CLINICAL HISTORY: Trauma, head and neck injury. PAIN COMPARISON: Head C Spine Mpr Wo Con dated 12/12/2017 TECHNIQUE: Axial 5 mm thick images of the head were obtained. Axial 2 mm thick images of the cervical spine were obtained with sagittal and coronal reconstruction images generated and reviewed. All CT scans are performed using dose optimization technique as appropriate and may include automated exposure control or mA/KV adjustment according to patient size. FINDINGS: CT HEAD WITHOUT CONTRAST: No acute hemorrhage, hydrocephalus or extra-axial collection is identified.No areas of brain edema or midline shift. The paranasal sinuses and mastoids are clear.The calvarium is intact. CT CERVICAL SPINE WITHOUT CONTRAST: No fracture or subluxation.Mild cervical degenerative changes are present. Orthopedic hardware is pre sent spanning C5-6.No prevertebral soft tissues swelling is identified. IMPRESSION: No acute intracranial or cervical spine findings.
--- NOTE | 2020-10-31 18:03 | RAD REPORT ---
EXAM DESCRIPTION: CT - CTFB CLINICAL HISTORY: FACIAL PAIN Trauma, pain COMPARISON: No comparisons TECHNIQUE: Axial 2 mm thick images of the face were obtained with sagittal and coronal reconstructio n images. All CT scans are performed using dose optimization technique as appropriate and may include automated exposure control or mA/KV adjustment according to patient size. FINDINGS: No acute facial bone fracture is seen.The mandible is intact. The globes and orbital contents are grossly unremarkable.The paranasal sinuses and mastoids are clear . IMPRESSION: Negative for facial bone fracture.
[2020-10-31 18:30] LABS: Urine Blood NEGATIVE (NEG); Urine Glucose NEGATIVE (NEG); Urine Protein NEGATIVE (NEG); Urine pH 6.5 (5.0-7.0)
--- NOTE | 2020-10-31 18:51 | EDPHYS ---
Physician Documentation [facility] Name: Papito Barry Age: 65 yrs Sex: Male : 1955 Arrival Date: 10/31/2020 Time: 15:51 Bed 7 Private MD: Jemma Young ED Physician Keegan Rivera HPI: 10/31 17:21 This 65 yrs old Male presents to ER via Wheelchair with complaints of Fall kdr Injury, Head Injury With LOC-Adult. 17:21 Details of fall: The patient fell from an upright position, while walking. Onset: The kdr symptoms/episode began/occurred suddenly, 1.5 week(s) ago. Associated injuries: The patient sustained injury to the head, contusion, hematoma, pain, tenderness. Severity of symptoms: At their worst the symptoms were mild, in the emergency department the symptoms are unchanged. The patient has not experienced similar symptoms in the past. The patient has not recently seen a physician. Historical: - Allergies: 15:59 Lisinopril; ll1 15:59 NSAIDS; ll1 15:59 Propranolol; ll1 - PMHx: 15:59 colon polyps removed; Cirrhosis; Dementia; hepititis C-gone now; varacies; ll1 Hypothyroidism; Hepatitis; Hypertension; cardiomyopathy; Anemia; CAD; - PSHx: 15:59 amputation right BKA; SPINAL STIMULATOR; Cholecystectomy; neck surg; Appendectomy; BACK ll1 SURGERY; fasciotomy to left lower leg; - Immunization history:: Flu vaccine is not up to date. - Social history:: Smoking status: Patient reports the use of cigarette tobacco products, smokes one-half pack cigarettes per day. ROS: 17:21 Constitutional: Negative for fever, chills, and weight loss, Neck: Negative for injury, kdr pain, and swelling, Cardiovascular: Negative for chest pain, palpitations, and edema, Respiratory: Negative for shortness of breath, cough, wheezing, and pleuritic chest pain, Abdomen/GI: Negative for abdominal pain, nausea, vomiting, diarrhea, and constipation, Back: Negative for injury and pain, : Negative for injury, bleeding, discharge, and swelling, MS/Extremity: Negative for injury and deformity, Skin: Negative for injury, rash, and discoloration, Psych: Negative for depression, anxiety, suicide ideation, homicidal ideation, and hallucinations, Allergy/Immunology: Negative for hives, rash, and allergies, Endocrine: Negative for neck swelling, polydipsia, polyuria, polyphagia, and marked weight changes, Hematologic/Lymphatic: Negative for swollen nodes, abnormal bleeding, and unusual bruising. 17:21 Eyes: Positive for blurry vision, pain, Left alfredito-orbital ecchymosis secondary to fall. Vision blurry in both eye equally. 17:21 Back: Positive for pain at rest, Chronic pain. Exam: 17:29 Constitutional: This is a well developed, well nourished patient who is awake, alert, kdr and in no acute distress. Neck: Trachea midline, no thyromegaly or masses palpated, and no cervical lymphadenopathy. Supple, full range of motion without nuchal rigidity, or vertebral point tenderness. No Meningismus. Chest/axilla: Normal chest wall appearance and motion. Nontender with no deformity. No lesions are appreciated. Cardiovascular: Regular rate and rhythm with a normal S1 and S2. No gallops, murmurs, or rubs. Normal PMI, no JVD. No pulse deficits. Respiratory: Lungs have equal breath sounds bilaterally, clear to auscultation and percussion. No rales, rhonchi or wheezes noted. No increased work of breathing, no retractions or nasal flaring. Abdomen/GI: Soft, non-tender, with normal bowel sounds. No distension or tympany. No guarding or rebound. No evidence of tenderness throughout. Back: No spinal tenderness. No costovertebral tenderness. Full range of motion. Skin: Warm, dry with normal turgor. Normal color with no rashes, no lesions, and no evidence of cellulitis. MS/ Extremity: Pulses equal, no cyanosis. Neurovascular intact. Full, normal range of motion. Neuro: Awake and alert, GCS 15, oriented to person, place, time, and situation. Cranial nerves II-XII grossly intact. Motor strength 5/5 in all extremities. Sensory grossly intact. Cerebellar exam normal. Normal gait. Psych: Awake, alert, with orientation to person, place and time. Behavior, mood, and affect are within normal limits. 17:29 Head/face: Noted is contusion, ecchymosis, that is mild, of the left eye, swelling, that is mild, tenderness, that is mild, of the left eye. Vital Signs: 15:55 BP 153 / 74; Pulse 74; Resp 17; Temp 98.3; Pulse Ox 96% on R/A; Weight 99.79 kg; Height ll1 5 ft. 10 in. (177.80 cm); Pain 5/10; 18:23 BP 132 / 62; Pulse 59; Resp 18; Temp 98.6(O); Pulse Ox 92% on R/A; mh5 19:34 BP 115 / 73; Pulse 55; Resp 18; Pulse Ox 92% on R/A; mg2 15:55 Body Mass Index 31.57 (99.79 kg, 177.80 cm) ll1 MDM: 17:29 Data reviewed: vital signs, nurses notes, lab test result(s), radiologic studies. kdr Counseling: I had a detailed discussion with the patient and/or guardian regarding: the historical points, exam findings, and any diagnostic results supporting the discharge/admit diagnosis, lab results, radiology results, the need for outpatient follow up. 18:50 Patient medically screened. kdr 10/31 17:11 Order name: CBC with Diff; Complete Time: 18:48 kdr 10/31 17:11 Order name: Chem 7; Complete Time: 18:48 kdr 10/31 17:10 Order name: CT Head C Spine; Complete Time: 18:48 kdr 10/31 17:10 Order name: CT Facial Bones W/O Con; Complete Time: 18:48 kdr 10/31 17:44 Order name: AMMONIA; Complete Time: 18:48 aa5 10/31 17:57 Order name: Urine Dipstick--Ancillary (enter results); Complete Time: 18:48 10/31 17:11 Order name: Urine Dipstick-Ancillary (obtain specimen); Complete Time: 17:44 kdr Administered Medications: 18:03 Drug: morphine 4 mg Route: IVP; Site: left hand; aa5 19:21 Follow up: Response: No adverse reaction mg2 18:03 Drug: Zofran (Ondansetron) 4 mg Route: IVP; Site: left hand; aa5 19:21 Follow up: Response: No adverse reaction mg2 Disposition: 10/31/20 18:50 Discharged to Home. Impression: Superficial injury of head, Facial trauma, Headache. - Condition is Fair. - Discharge Instructions: General Headache Without Cause, Head Injury, Adult, [id number]. - Prescriptions for Tramadol 50 mg Oral Tablet - take 1 tablet by ORAL route every 8 hours as needed; 12 tablet. - Medication Reconciliation Form, Thank You Letter, Prescription Opioid Use form. - Follow up: Jemma Young MD; When: 2 - 3 days; Reason: If symptoms return, Further diagnostic work-up, Recheck today's complaints, Continuance of care, Re-evaluation by your physician. - Problem is new. - Symptoms have improved. Signatures: Dispatcher [employer] EDMS Keegan Rivera MD MD [facility] Clarice Luther RN RN aa5 Rk Ramirez RN RN mg2 Brooke Birmingham RN RN ll1 Corrections: (The following items were deleted from the chart) 19:38 18:50 10/31/2020 18:50 Discharged to Home. Impression: Superficial injury of head; mg2 Facial trauma; Headache. Condition is Fair. Forms are Medication Reconciliation Form, Thank You Letter, Antibiotic Education, Prescription Opioid Use. Follow up: Jemma Young; When: 2 - 3 days; Reason: If symptoms return, Further diagnostic work-up, Recheck today's complaints, Continuance of care, Re-evaluation by your physician. Problem is new. Symptoms have improved. kdr
--- NOTE | 2020-10-31 18:51 | ER ---
Nurse's Notes [facility] Name: Papito Barry Age: 65 yrs Sex: Male : 1955 Arrival Date: 10/31/2020 Time: 15:51 Bed 7 Private MD: Jemma Young Diagnosis: Superficial injury of head;Facial trauma;Headache Presentation: 10/31 15:55 Chief complaint: Patient states: Passed out on the 8th. Old bruising noted to L eye. ll1 States fatigue, ALFARO, and slight confusion since. Coronavirus screen: Client denies travel out of the [place] in the last 14 days. At this time, the client does not indicate any symptoms associated with coronavirus-19. Ebola Screen: Patient denies travel to an Ebola-affected area in the 21 days before illness onset. Initial Sepsis Screen: Does the patient meet any 2 criteria? No. Patient's initial sepsis screen is negative. Does the patient have a suspected source of infection? Yes: Bone or joint infection. Risk Assessment: Do you want to hurt yourself or someone else? Patient reports no desire to harm self or others. Onset of symptoms was October 24, 2020. 15:55 Method Of Arrival: Wheelchair ll1 15:55 Acuity: CARLOTA 3 ll1 Triage Assessment: 15:59 General: Appears uncomfortable, Behavior is calm, cooperative, appropriate for age. ll1 Pain: Complains of pain in head Pain currently is 5 out of 10 on a pain scale. Quality of pain is described as aching. Neuro: Level of Consciousness is awake, alert, obeys commands, Oriented to person, place, time, situation, Appropriate for age Manager Contracting are equal bilaterally Moves all extremities. Full function Gait is steady, Speech is normal, Reports headache a syncopal episode. Cardiovascular: No deficits noted. Derm: Skin is pink, warm \T\ dry. normal, Reports bruising L eye. Musculoskeletal: Circulation, motion, and sensation intact. Capillary refill < 3 seconds, Range of motion: intact in all extremities, Reports back pain/ALFARO. Injury Description: Head injury Bruise. Historical: - Allergies: 15:59 Lisinopril; ll1 15:59 NSAIDS; ll1 15:59 Propranolol; ll1 - PMHx: 15:59 colon polyps removed; Cirrhosis; Dementia; hepititis C-gone now; varacies; ll1 Hypothyroidism; Hepatitis; Hypertension; cardiomyopathy; Anemia; CAD; - PSHx: 15:59 amputation right BKA; SPINAL STIMULATOR; Cholecystectomy; neck surg; Appendectomy; BACK ll1 SURGERY; fasciotomy to left lower leg; - Immunization history:: Flu vaccine is not up to date. - Social history:: Smoking status: Patient reports the use of cigarette tobacco products, smokes one-half pack cigarettes per day. Screenin:38 Abuse screen: Denies threats or abuse. Nutritional screening: No deficits noted. aa5 Tuberculosis screening: No symptoms or risk factors identified. Fall Risk Secondary diagnosis (15 points) impaired mobility, IV access (20 points). Total Carey Fall Scale indicates High Risk Score (45 or more points). Fall prevention measures have been instituted. Side Rails Up X 2. Assessment: 17:00 General: Appears uncomfortable, Behavior is calm, cooperative. Pain: Complains of pain aa5 in left eye and left side of head Pain currently is 8 out of 10 on a pain scale. Quality of pain is described as aching, Pain began post fall/1 week ago Is continuous. Neuro: Level of Consciousness is awake, alert, obeys commands, Oriented to person, place, time, situation. Cardiovascular: Patient's skin is warm and dry. Respiratory: Airway is patent Respiratory effort is even, unlabored, Respiratory pattern is regular, symmetrical. GI: Abdomen is round Reports nausea. : No signs and/or symptoms were reported regarding the genitourinary system. EENT: bruising that is dark purple noted to left periorbital area . Derm: Skin is pink, warm \T\ dry. Musculoskeletal: R BKA. 17:40 Reassessment: Pt to CT via stretcher . aa5 17:40 Reassessment: Patient is alert, oriented x 3, equal unlabored respirations, skin aa5 warm/dry/pink. 18:30 Reassessment: Patient is alert, oriented x 3, equal unlabored respirations, skin aa5 warm/dry/pink. Patient states feeling better. Pain: Pain currently is 5 out of 10 on a pain scale. 19:00 Reassessment: Awaiting for Dr. Rivera to speak to pt before d/c home . aa5 Vital Signs: 15:55 BP 153 / 74; Pulse 74; Resp 17; Temp 98.3; Pulse Ox 96% on R/A; Weight 99.79 kg; Height ll1 5 ft. 10 in. (177.80 cm); Pain 5/10; 18:23 BP 132 / 62; Pulse 59; Resp 18; Temp 98.6(O); Pulse Ox 92% on R/A; mh5 19:34 BP 115 / 73; Pulse 55; Resp 18; Pulse Ox 92% on R/A; mg2 15:55 Body Mass Index 31.57 (99.79 kg, 177.80 cm) ll1 ED Course: 15:51 Patient arrived in ED. rg4 15:52 Jemma Young MD is Private Physician. rg4 15:58 Triage completed. ll1 15:59 Arm band placed on. ll1 16:54 Clarice Luther, GHASSAN is Primary Nurse. aa5 17:00 Keegan Rivera MD is Attending Physician. kdr 17:38 Initial lab(s) drawn, by pr, sent to lab. Inserted saline lock: 20 gauge in left hand, aa5 using aseptic technique. Blood collected. 17:46 CT Head C Spine In Process Unspecified. EDMS 17:46 CT Facial Bones W/O Con In Process Unspecified. EDMS 18:22 Patient has correct armband on for positive identification. Bed in low position. Call [facility] light in reach. Side rails up X2. Warm blanket given. Pillow given. potline monitor on. Pulse ox on. NIBP on. 18:22 Urine collected: clean catch specimen, clear. 5 18:49 Jemma Young MD is Referral Physician. kdr 19:00 Report given to GHASSAN Spring and GHASSAN Beckman. aa5 19:34 No provider procedures requiring assistance completed. IV discontinued, intact, mg2 bleeding controlled, No redness/swelling at site. Pressure dressing applied. Administered Medications: 18:03 Drug: morphine 4 mg Route: IVP; Site: left hand; aa5 19:21 Follow up: Response: No adverse reaction mg2 18:03 Drug: Zofran (Ondansetron) 4 mg Route: IVP; Site: left hand; aa5 19:21 Follow up: Response: No adverse reaction mg2 Outcome: 18:50 Discharge ordered by . kdr 19:34 Discharged to home via wheelchair. mg2 19:34 Condition: stable 19:34 Discharge instructions given to patient, Instructed on discharge instructions, follow up and referral plans. medication usage, Demonstrated understanding of instructions, follow-up care, medications, Prescriptions given X 1. 19:38 Patient left the ED. mg2 Signatures: Dispatcher [employer] EDMS Keegan Rivera MD MD kdr Calderon, Audri RN RN [email or web address] Cely Barnes Maria Rk Henderson RN RN mg2 Brooke Birmingham RN RN ll1
[2020-10-31 19:44] VITALS: TEMP 98.6; O2SAT 92
[2020-10-31 19:45] VITALS: BP 115/73
== END 2020-10-31 19:38 | disposition home or self-care (01) ==
LOC: ER 15:49
DX: S00.83XA Contusion of other part of head, initial encounter (principal); W18.30XA Fall on same level, unspecified, initial encounter; Y93.01 Activity, walking, marching and hiking; Y92.9 Unspecified place or not applicable; I10 Essential (primary) hypertension; Z88.6 Allergy status to analgesic agent; Z88.8 Allergy status to other drugs, medicaments and biological substances; F17.210 Nicotine dependence, cigarettes, uncomplicated; Z89.511 Acquired absence of right leg below knee
CPT/HCPCS: 85025; 80048; 36415; 82140; 81003; 70450; 72125; 70486; 76377; 96375; 96374; 99284; J2405

== ENCOUNTER 2021-05-25 10:51 | Observation (INO) | payer OTHER ==
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
--- NOTE | 2021-05-25 13:33 | RAD REPORT ---
EXAM DESCRIPTION: RAD - Chest Single View - 05/25/2021 1:28 pm CLINICAL HISTORY: AMS COMPARISON: Chest Single View dated 06/29/2019; Chest Single View dated 12/12/2017; Chest Single View dated 07/24/2016; Chest Single View dated 05/01/2016 FINDINGS: Linear opacities in the lung bases likely representing atelectasis or scarring. No edema o r evidence of pneumonia. The heart size is within normal limits.No acute osseous abnormality. No sign ificant pleural effusions or pneumothorax. ACDF in the cervical spine per IMPRESSION: No acute cardiopulmonary disease.
[2021-05-25 14:24] LABS: Absolute Lymphocytes (CBC) 1.2 K/uL (0.7-4.9); Basophils % 0.5 % (0-1.3); Hematocrit 47.9 % (39.6-49.0); Lymphocytes % 11.3 % (15.3-44.8); MPV 8.8 fL (7.6-11.3); RBC Red Blood Cell Count 5.46 M/uL (4.33-5.43)
[2021-05-25 14:27] LABS: Protime INR 1.12
--- NOTE | 2021-05-25 14:40 | RAD REPORT ---
EXAM DESCRIPTION: CT - Abdomen Pelvis Wo Contrast - 05/25/2021 2:32 pm CLINICAL HISTORY: Abdominal pain. ABD PAIN COMPARISON: Abdomen Pelvis Wo Contrast dated 10/05/2019; Abdomen Pelvis W Contrast dated 06/29/20; Abdomen Pelvis W Contrast dated 09/18/2016; Abdomen Pelvis W Contrast dated 05/01/2016 TECHNIQUE: CT imaging of the abdomen and pelvis was performed without contrast. Solid organ, bowel a nd vascular assessment is limited due to lack of IV and oral contrast. All CT scans are performed using dose optimization technique as appropriate and may include automated exposure control or mA/KV adjustment according to patient size. FINDINGS: The lower lung corbin are clear. Cirrhotic liver morphology. Cholecystectomy. The spleen is unremarkable. The adrenal glands are unrem arkable. No renal or ureteral calculi. No bowel obstruction is identified. The prostate unremarkable. The bladder is unremarkable. Diverticulosis is noted. No evidence of acute diverticulitis. No ascite s is seen. There is moderate stool in the proximal colon. No evidence of appendicitis. Atherosclerosi s. Spinal stimulator. Degenerative changes are present spine. IMPRESSION: No acute intra-abdominal or pelvic findings. Cirrhosis. No urinary tract calculi. A limited non-contrast examination was performed as detailed.
--- NOTE | 2021-05-25 14:41 | RAD REPORT ---
EXAM DESCRIPTION: CT - Head Brain Wo Cont - 05/25/2021 2:31 pm CLINICAL HISTORY: MENTAL STATUS CHANGE COMPARISON: Facial Bones W/ Mpr dated 10/31/2020; Head Brain Wo Cont dated 10/05/2019 TECHNIQUE: All CT scans are performed using dose optimization technique as appropriate and may inclu de automated exposure control or mA/KV adjustment according to patient size. FINDINGS: No intracranial hemorrhage, hydrocephalus or extra-axial fluid collection.Age indeterminat e left basal ganglia lacunar infarct. The paranasal sinuses and mastoids are clear. The calvarium is intact. IMPRESSION: Age-indeterminate left basal ganglia lacunar infarct.
[2021-05-25 14:48] LABS: ALT/SGPT 38 U/L (12-78); AST/SGOT 24 U/L (15-37); Albumin 4.2 g/dL (3.4-5.0); Alkaline Phosphatase 92 U/L (45-117); BUN Blood Urea Nitrogen 23 mg/dL (7-18); Bicarbonate 28 mmol/L (21-32); Bilirubin Direct 0.2 mg/dL (0-0.2); Bilirubin Total 0.7 mg/dL (0.2-1.0); Glucose Level 109 mg/dL (74-106); Magnesium 2.2 mg/dL (1.8-2.4); NT PRO-BNP 42 pg/mL (<125); Potassium 4.4 mmol/L (3.5-5.1); Protein, Total 8.4 g/dL (6.4-8.2); Sodium Level 140 mmol/L (136-145); Troponin (Emerg Dept Use Only) < 0.02 ng/mL (0.0-0.045)
--- NOTE | 2021-05-25 14:55 | ER ---
Nurse's Notes [facility] Name: Papito Barry Age: 65 yrs Sex: Male : 1955 Arrival Date: 05/25/2021 Time: 11:02 Bed 19 Private MD: Diagnosis: Left basal ganglia lacunar infarct Presentation: 05/25 12:25 Chief complaint: Patient states: "I havnt been feeling well for about a week, I think I vg1 need to get my ammonia levels checked; Shasha also lost some weight". Coronavirus screen: Client denies travel out of the [place] in the last 14 days. Ebola Screen: Patient negative for fever greater than or equal to 101.5 degrees Fahrenheit, and additional compatible Ebola Virus Disease symptoms. No acute neurological deficit is noted. Initial Sepsis Screen: Does the patient meet any 2 criteria? No. Patient's initial sepsis screen is negative. Does the patient have a suspected source of infection? No. Patient's initial sepsis screen is negative. Risk Assessment: Do you want to hurt yourself or someone else? Patient reports no desire to harm self or others. Onset of symptoms was May 18, 2021. 12:25 Method Of Arrival: Wheelchair vg1 12:25 Acuity: CARLOTA 3 vg1 Triage Assessment: 12:26 The onset of the patients symptoms was May 18, 2021 at 12:28. General: Appears in no vg1 apparent distress. uncomfortable, Behavior is calm, cooperative. Pain: Complains of pain in right upper quadrant Pain currently is 5 out of 10 on a pain scale. EENT: No signs and/or symptoms were reported regarding the EENT system. Neuro: Level of Consciousness is awake, alert, obeys commands, Oriented to person, place, time, situation, Reports weakness. Cardiovascular: Patient's skin is warm and dry. Respiratory: Airway is patent Respiratory effort is even, unlabored. GI: Abdomen is round non-distended, Abdomen is tender to palpation in right upper quadrant Reports upper abdominal pain, diarrhea, Patient currently denies nausea, vomiting. : No signs and/or symptoms were reported regarding the genitourinary system. Derm: Skin is intact, Skin is pink, warm \\T\\ dry. Musculoskeletal: Amputation of Right BKA. Circulation, motion, and sensation intact. Historical: - Allergies: 12:26 Lisinopril; vg1 12:26 NSAIDS; vg1 12:26 Propranolol; vg1 - Home Meds: 12:26 atorvastatin 80 mg Oral tab 1 tab once daily [Active]; bupropion HCl 150 mg Oral TbER 1 vg1 tab once daily [Active]; ibuprofen 600 mg Oral tab 1 tab twice a day [Active]; lactulose 10 gram/15 mL Oral soln 15 mL 3 times per day [Active]; Lasix 20 mg Oral tab 1 tab once daily [Active]; levothyroxine 175 mcg tab 1 tab once daily [Active]; pantoprazole 40 mg Oral TbEC 1 tab once daily [Active]; tamsulosin 0.4 mg Oral cp24 1 cap once daily [Active]; trazodone 100 mg Oral tab 1 tab nightly [Active]; Vitamin B-12 1,000 mcg Oral tab daily [Active]; - PMHx: 12:26 colon polyps removed; Anemia; CAD; cardiomyopathy; Cirrhosis; Dementia; Hepatitis; vg1 hepititis C-gone now; Hypertension; Hypothyroidism; varacies; - Immunization history:: Adult Immunizations up to date, Client reports receiving the 2nd dose of the Covid vaccine. - Social history:: Smoking status: Patient denies any tobacco usage or history of. Screenin:30 Abuse screen: Denies threats or abuse. Nutritional screening: No deficits noted. vg1 Tuberculosis screening: No symptoms or risk factors identified. Fall Risk No fall in past 12 months (0 pts). No secondary diagnosis (0 pts). IV access (20 points). Ambulatory Aid- Crutches/Cane/Walker (15 pts). Gait- Impaired (20 pts.). Mental Status- Oriented to own ability (0 pts). Total Carey Fall Scale indicates High Risk Score (45 or more points). Fall prevention measures have been instituted. Side Rails Up X 2 Placed Close to Nursing Station. Assessment: 12:30 Reassessment: SEE TRIAGE. vg1 12:55 Reassessment: Called inside Lab to assist with blood draw. vg1 13:30 Reassessment: Patient appears in no apparent distress at this time. No changes from vg1 previously documented assessment. Patient and/or family updated on plan of care and expected duration. Pain level reassessed. Patient is alert, oriented x 3, equal unlabored respirations, skin warm/dry/pink. 16:15 The patient has not been NPO before screening. The patient is alert, and able to follow vg1 commands. The patient does not exhibit slurred or garbled speech. The patient is not exhibiting difficulty speaking. The patient does not exhibit difficulty understanding words. The patient is able to swallow own secretions with no drooling or need for suction. Patient tolerated one teaspoon of water. No drooling, immediate coughing, gurgling, or clearing of the throat was noted. The patient tolerated 90mL of water. No drooling, immediate coughing, gurgling, or clearing of the throat was noted. The patient passed the bedside swallow screening. Oral medications may be given as ordered. Contact Physician for further diet orders. Provider notified of bedside swallow screening results: Juan Hubbard NP. 16:15 VAN Scoring: Arm Drift: Patients demonstrates NO arm weakness. Patient is VAN Negative. vg1 Visual Disturbance: No visual disturbance noted. Aphasia: Expressive aphasia noted. Provider notified of +VAN scoring. Neglect: No neglect noted. 17:37 Reassessment: Patient appears in no apparent distress at this time. Patient and/or vg1 family updated on plan of care and expected duration. Pain level reassessed. Patient is alert, oriented x 3, equal unlabored respirations, skin warm/dry/pink. Patient denies pain at this time. Vital Signs: 12:25 BP 143 / 83; Pulse 60; Resp 18; Temp 97.6; Pulse Ox 95% ; Weight 97.07 kg; Height 5 ft. vg1 10 in. (177.80 cm); Pain 5/10; 13:30 BP 130 / 84; Pulse 60; Resp 16; Pulse Ox 100% ; vg1 14:30 BP 140 / 72; Pulse 56; Resp 20; Pulse Ox 98% ; vg1 15:00 BP 120 / 91; Pulse 55; Resp 16; Pulse Ox 96% ; vg1 15:30 BP 124 / 86; Pulse 57; Resp 16; Pulse Ox 96% ; vg1 16:00 BP 120 / 89; Pulse 57; Resp 16; Pulse Ox 95% ; vg1 16:30 BP 139 / 82; Pulse 55; Resp 18; Pulse Ox 92% ; vg1 17:30 BP 130 / 90; Pulse 55; Resp 14; Pulse Ox 94% ; vg1 12:25 Body Mass Index 30.71 (97.07 kg, 177.80 cm) vg1 NIH Stroke Scale Scores: 15:09 NIHSS Score: 2 vg1 15:16 NIHSS Score: 2 pm1 ED Course: 11:02 Patient arrived in ED. mr 12:10 Juan Hubbard, ADITYA is PHCP. pm1 12:10 Daniel Cooper MD is Attending Physician. pm1 12:24 Mary Barnes, RN is Primary Nurse. vg1 12:26 Triage completed. vg1 12:30 Patient has correct armband on for positive identification. Bed in low position. Call vg1 light in reach. Side rails up X2. 12:47 Missed attempt(s): 22 gauge in left antecubital area. Completed by GHASSAN Anderson. vg1 12:50 Missed attempt(s): 20 gauge in left hand. Completed by GHASSAN Anderson. vg1 12:53 Missed attempt(s): 22 gauge in right antecubital area. vg1 13:28 XRAY Chest (1 view) In Process Unspecified. EDMS 14:14 Inserted saline lock: 20 gauge in left antecubital area, using aseptic technique. vg1 ,using aseptic technique. Completed by Juan Hubbard NP. 14:15 Initial lab(s) drawn, by me, sent to lab. vg1 14:31 CT Head Brain wo Cont In Process Unspecified. EDMS 14:32 Abdomen In Process Unspecified. EDMS 14:53 Criselda Saenz MD is Hospitalizing Provider. pm1 16:16 Arm band placed on. vg1 19:22 Report given to Isak FERRELL. vg1 19:22 No provider procedures requiring assistance completed. Patient admitted, IV remains in vg1 place. Administered Medications: 15:27 Drug: PlaVIX (clopidogrel) 75 mg Route: PO; vg1 17:37 Follow up: Response: No adverse reaction vg1 15:28 Drug: foLIC Acid 1 mg Route: IVPB; Site: left antecubital; vg1 17:37 Follow up: IV Status: Completed infusion vg1 Outcome: 14:54 Decision to Hospitalize by Provider. pm1 19:22 Admitted to ER Hold. Please see [facility] for further documentation. vg1 19:22 Condition: stable 19:22 Instructed on the need for admit. 08/10 13:28 Patient left the ED. vg1 NIH Stroke Scale - NIH Stroke Score Date: 05/25/2021 Time: 15:09 Total Score = 2 1a. Level of Consciousness (LOC) - 0(Alert) 1b. Level of Consciousness (LOC) (Month \\T\\ Age) - 0(Both) 1c. LOC Commands (Open \\T\\ Closes Eyes/Mechanical Technologist) - 0(Both) 2. Best Gaze (Lateral Gaze Paresis) - 0(Normal) 3. Visual Field Loss - 0(No visual loss) 4. Facial Palsy - 0(Normal) 5a. Left Arm: Motor (10-second hold) - 0(No drift) 5b. Right Arm: Motor (10-second hold) - 0(No drift) 6a. Left Leg: Motor (5-second hold - always test supine) - 1(Drift) 6b. Right Leg: Motor (5-second hold - always test supine) - 0(No drift) 7. Limb Ataxia (finger/nose \\T\\ heel/waldron - test with eyes open) - 0(Absent) 8. Sensory Loss (pinprick arms/legs/face) - 0(Normal) 9. Best Language: Aphasia (description/naming/reading) - 1(Mild to moderate aphasia) 10. Dysarthria (speech clarity - read or repeat words) - 0(Normal) 11. Extinction and Inattention (visual/tactile/auditory/spatial/personal) - 0(No abnormality) Initials: [facility] NIH Stroke Scale - NIH Stroke Score Date: 05/25/2021 Time: 15:16 Total Score = 2 1a. Level of Consciousness (LOC) - 0(Alert) 1b. Level of Consciousness (LOC) (Month \\T\\ Age) - 0(Both) 1c. LOC Commands (Open \\T\\ Closes Eyes/Mechanical Technologist) - 0(Both) 2. Best Gaze (Lateral Gaze Paresis) - 0(Normal) 3. Visual Field Loss - 0(No visual loss) 4. Facial Palsy - 0(Normal) 5a. Left Arm: Motor (10-second hold) - 0(No drift) 5b. Right Arm: Motor (10-second hold) - 0(No drift) 6a. Left Leg: Motor (5-second hold - always test supine) - 1(Drift) 6b. Right Leg: Motor (5-second hold - always test supine) - 0(No drift) 7. Limb Ataxia (finger/nose \\T\\ heel/waldron - test with eyes open) - 0(Absent) 8. Sensory Loss (pinprick arms/legs/face) - 0(Normal) 9. Best Language: Aphasia (description/naming/reading) - 1(Mild to moderate aphasia) 10. Dysarthria (speech clarity - read or repeat words) - 0(Normal) 11. Extinction and Inattention (visual/tactile/auditory/spatial/personal) - 0(No abnormality) Initials: pm1 Signatures: Dispatcher [employer] MERLINE RafaelAmanda mr Hubbard Juan, VP SCIENTIFIC AFFAIRS VP SCIENTIFIC AFFAIRS pm1 Mary Barnes, RN RN vg1 Corrections: (The following items were deleted from the chart) 05/25 14:16 14:15 Reassessment: Patient appears in no apparent distress at this time. No vg1 changes from previously documented assessment. Patient and/or family updated on plan of care and expected duration. Pain level reassessed. Patient is alert, oriented x 3, equal unlabored respirations, skin warm/dry/pink. vg1
--- NOTE | 2021-05-25 14:55 | EDPHYS ---
Physician Documentation [facility] Name: Papito Barry Age: 65 yrs Sex: Male : 1955 Arrival Date: 05/25/2021 Time: 11:02 Bed 19 Private MD: ED Physician Daniel Cooper HPI: 05/25 12:33 This 65 yrs old Male presents to ER via Wheelchair with complaints of pm1 Weakness, Confusion. 12:33 The patient presents with confusion. Onset: The symptoms/episode began/occurred 1 pm1 week(s) ago. Possible causes: Possible elevated ammonia level. Associated signs and symptoms: Pertinent positives: abdominal pain, Pertinent negatives: chest pain, diarrhea, headache, shortness of breath, vomiting. Current symptoms: In the emergency department the patient's symptoms are unchanged from the initial presentation. 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 The patient has not recently seen a physician, the patient's primary care provider is Dr. Young. Patient presents to the ER with complaints of generalized weakness and confusion for 1 week. Patient does not take lactulose due to diarrhea. Patient also reports right upper quadrant pain for 1 week. Historical: - Allergies: 12:26 Lisinopril; vg1 12:26 NSAIDS; vg1 12:26 Propranolol; vg1 - Home Meds: 12:26 atorvastatin 80 mg Oral tab 1 tab once daily [Active]; bupropion HCl 150 mg Oral TbER 1 vg1 tab once daily [Active]; ibuprofen 600 mg Oral tab 1 tab twice a day [Active]; lactulose 10 gram/15 mL Oral soln 15 mL 3 times per day [Active]; Lasix 20 mg Oral tab 1 tab once daily [Active]; levothyroxine 175 mcg tab 1 tab once daily [Active]; pantoprazole 40 mg Oral TbEC 1 tab once daily [Active]; tamsulosin 0.4 mg Oral cp24 1 cap once daily [Active]; trazodone 100 mg Oral tab 1 tab nightly [Active]; Vitamin B-12 1,000 mcg Oral tab daily [Active]; - PMHx: 12:26 colon polyps removed; Anemia; CAD; cardiomyopathy; Cirrhosis; Dementia; Hepatitis; vg1 hepititis C-gone now; Hypertension; Hypothyroidism; varacies; - Immunization history:: Adult Immunizations up to date, Client reports receiving the 2nd dose of the Covid vaccine. - Social history:: Smoking status: Patient denies any tobacco usage or history of. ROS: 12:33 Constitutional: Negative for fever, chills, and weight loss, Cardiovascular: Negative pm1 for chest pain, palpitations, and edema, Respiratory: Negative for shortness of breath, cough, wheezing, and pleuritic chest pain. 12:33 Back: Negative for injury and pain, MS/Extremity: Negative for injury and deformity, Skin: Negative for injury, rash, and discoloration. 12:33 Abdomen/GI: Positive for abdominal pain, of the right upper quadrant, Negative for nausea, vomiting, and diarrhea. 12:33 Neuro: Positive for confusion, generalized weakness. 12:33 All other systems are negative. Exam: 12:34 Constitutional: This is a well developed, well nourished patient who is awake, alert, pm1 and in no acute distress. 12:34 Head/Face: Normocephalic, atraumatic. 12:34 Back: No spinal tenderness. No costovertebral tenderness. Full range of motion. MS/ Extremity: Pulses equal, no cyanosis. Neurovascular intact. Full, normal range of motion. Right BKA 12:34 Eyes: Exam is negative for acute changes, Extraocular movements: no acute changes, Conjunctiva: no acute changes, Sclera: no acute changes, icterus, is not appreciated. 12:34 Cardiovascular: Exam negative for acute changes, Rate: normal, Rhythm: regular, Pulses: no pulse deficits are appreciated. 12:34 Respiratory: Exam negative for acute changes, respiratory distress, shortness of breath. 12:34 Abdomen/GI: Inspection: obese Palpation: abdomen is soft and non-tender, in all quadrants. 12:34 Skin: Appearance: normal except for affected area, Color: normal in color. 12:34 Neuro: Orientation: to person, place, time, situation, Mentation: slow to respond, Motor: moves all fours, Sensation: no obvious gross deficits. Vital Signs: 12:25 BP 143 / 83; Pulse 60; Resp 18; Temp 97.6; Pulse Ox 95% ; Weight 97.07 kg; Height 5 ft. vg1 10 in. (177.80 cm); Pain 5/10; 13:30 BP 130 / 84; Pulse 60; Resp 16; Pulse Ox 100% ; vg1 14:30 BP 140 / 72; Pulse 56; Resp 20; Pulse Ox 98% ; vg1 15:00 BP 120 / 91; Pulse 55; Resp 16; Pulse Ox 96% ; vg1 15:30 BP 124 / 86; Pulse 57; Resp 16; Pulse Ox 96% ; vg1 16:00 BP 120 / 89; Pulse 57; Resp 16; Pulse Ox 95% ; vg1 16:30 BP 139 / 82; Pulse 55; Resp 18; Pulse Ox 92% ; vg1 17:30 BP 130 / 90; Pulse 55; Resp 14; Pulse Ox 94% ; vg1 12:25 Body Mass Index 30.71 (97.07 kg, 177.80 cm) vg1 NIH Stroke Scale Scores: 15:09 NIHSS Score: 2 vg1 15:16 NIHSS Score: 2 pm1 Procedures: 14:08 Peripheral line: by aseptic technique a peripheral line was placed in the left pm1 antecubital vein, Aseptic technique, ultrasound guided. 20 gauge with good blood return. . 22:12 Peripheral line: by aseptic technique a peripheral line was placed in the left external pm1 jugular vein. MDM: 12:20 Patient medically screened. pm1 12:49 Data reviewed: vital signs. Data interpreted: Pulse oximetry: on room air is 95 %. pm1 Interpretation: normal. 14:52 Counseling: I had a detailed discussion with the patient and/or guardian regarding: the pm1 historical points, exam findings, and any diagnostic results supporting the discharge/admit diagnosis, radiology results, the need for further work-up and treatment in the hospital. 14:57 ED course: Patient is not a TPA candidate. Onset of symptoms 7 days ago. pm1 05/25 12:20 Order name: AMMONIA; Complete Time: 14:39 pm1 05/25 12:20 Order name: Urine Microscopic Only pm1 05/25 12:20 Order name: Basic Metabolic Panel; Complete Time: 14:54 pm1 05/25 12:20 Order name: CBC with Diff; Complete Time: 14:39 pm1 05/25 12:20 Order name: LFT's; Complete Time: 14:54 pm1 05/25 12:20 Order name: Magnesium; Complete Time: 14:54 pm1 05/25 12:20 Order name: NT PRO-BNP; Complete Time: 14:54 pm1 05/25 12:20 Order name: PT-INR; Complete Time: 14:39 pm1 05/25 12:20 Order name: Troponin (emerg Dept Use Only); Complete Time: 14:54 pm1 05/25 12:32 Order name: COVID-19 : Document "Date of Symptom Onset" if Symptomatic. pm1 05/25 16:50 Order name: SARS-COV-2 RT PCR; Complete Time: 17:16 EDMS 05/25 17:45 Order name: Ammonia EDMS 05/25 17:45 Order name: Ammonia EDMS 05/25 12:20 Order name: CT Head Brain wo Cont; Complete Time: 14:43 pm1 05/25 12:20 Order name: XRAY Chest (1 view); Complete Time: 13:38 pm1 05/25 14:29 Order name: Abdomen ; Complete Time: 14:43 EDMS 05/25 17:45 Order name: CBC with Automated Diff EDMS 05/25 17:45 Order name: CBC with Automated Diff EDMS 05/25 17:45 Order name: Comprehensive Metabolic Panel EDMS 05/25 17:45 Order name: Comprehensive Metabolic Panel EDMS 05/25 17:45 Order name: Lipid Profile EDMS 05/25 17:45 Order name: Lipid Profile EDMS 05/25 17:45 Order name: Protime (+INR) EDMS 05/25 17:45 Order name: Protime (+INR) EDMS 05/25 17:45 Order name: PTT, Activated Partial Thromb EDMS 05/25 17:45 Order name: PTT, Activated Partial Thromb EDMS 05/25 12:20 Order name: EKG; Complete Time: 12:21 pm05/25 12:20 Order name: Cardiac monitoring; Complete Time: 12:39 pm1 05/25 12:20 Order name: EKG - Nurse/Tech; Complete Time: 12:39 pm1 05/25 12:20 Order name: IV Saline Lock; Complete Time: 14:16 pm1 05/25 12:20 Order name: Labs collected and sent; Complete Time: 14:16 pm1 05/25 12:20 Order name: O2 Per Protocol; Complete Time: 12:31 pm1 05/25 12:20 Order name: O2 Sat Monitoring; Complete Time: 12:31 pm1 05/25 17:45 Order name: Physical Therapy Consult EDMS 05/25 17:45 Order name: Heart Healthy EDMS Administered Medications: 15:27 Drug: PlaVIX (clopidogrel) 75 mg Route: PO; vg1 17:37 Follow up: Response: No adverse reaction vg1 15:28 Drug: foLIC Acid 1 mg Route: IVPB; Site: left antecubital; vg1 17:37 Follow up: IV Status: Completed infusion vg1 Disposition: 14:55 Co-signature as Attending Physician, Daniel Cooper MD I agree with the assessment and rn plan of care. PA/MEDICAL INSURANCE CLAIMS PROCESSOR's history reviewed, patient interviewed, and examined. HPI: 65-year-old male with about 1 week of not feeling right, slow mental process, confusion, slurred speech. Denies any focal head injury. Came in thinking that it was related to his cirrhosis and high ammonia. My personal exam of patient reveals: Patient awake alert, GCS 15, mild slurred speech with slow mentation. Strength equal and intact in all 4 extremities as well as sensation. I agree with assessment and care plan and confirm the diagnosis (es) above. Disposition Summary: 05/25/21 14:54 Hospitalization Ordered Hospitalization Status: Observation pm1 Provider: Criselda Saenz pmHuber Condition: Stable pm1 Problem: new pm1 Symptoms: have improved pm1 Bed/Room Type: Standard pm1 Location: [facility] ER HOLD(05/25/21 23:26) Room Assignment: ERHOLD-(05/25/21 23:26) cg Diagnosis - Left basal ganglia lacunar infarct pm1 Forms: - Medication Reconciliation Form pm1 - SBAR form pm1 NIH Stroke Scale - NIH Stroke Score Date: 05/25/2021 Time: 15:09 Total Score = 2 1a. Level of Consciousness (LOC) - 0(Alert) 1b. Level of Consciousness (LOC) (Month \\T\\ Age) - 0(Both) 1c. LOC Commands (Open \\T\\ Closes Eyes/Information Technology Auditor) - 0(Both) 2. Best Gaze (Lateral Gaze Paresis) - 0(Normal) 3. Visual Field Loss - 0(No visual loss) 4. Facial Palsy - 0(Normal) 5a. Left Arm: Motor (10-second hold) - 0(No drift) 5b. Right Arm: Motor (10-second hold) - 0(No drift) 6a. Left Leg: Motor (5-second hold - always test supine) - 1(Drift) 6b. Right Leg: Motor (5-second hold - always test supine) - 0(No drift) 7. Limb Ataxia (finger/nose \\T\\ heel/waldron - test with eyes open) - 0(Absent) 8. Sensory Loss (pinprick arms/legs/face) - 0(Normal) 9. Best Language: Aphasia (description/naming/reading) - 1(Mild to moderate aphasia) 10. Dysarthria (speech clarity - read or repeat words) - 0(Normal) 11. Extinction and Inattention (visual/tactile/auditory/spatial/personal) - 0(No abnormality) Initials: vg1 NIH Stroke Scale - NIH Stroke Score Date: 05/25/2021 Time: 15:16 Total Score = 2 1a. Level of Consciousness (LOC) - 0(Alert) 1b. Level of Consciousness (LOC) (Month \\T\\ Age) - 0(Both) 1c. LOC Commands (Open \\T\\ Closes Eyes/Information Technology Auditor) - 0(Both) 2. Best Gaze (Lateral Gaze Paresis) - 0(Normal) 3. Visual Field Loss - 0(No visual loss) 4. Facial Palsy - 0(Normal) 5a. Left Arm: Motor (10-second hold) - 0(No drift) 5b. Right Arm: Motor (10-second hold) - 0(No drift) 6a. Left Leg: Motor (5-second hold - always test supine) - 1(Drift) 6b. Right Leg: Motor (5-second hold - always test supine) - 0(No drift) 7. Limb Ataxia (finger/nose \\T\\ heel/waldron - test with eyes open) - 0(Absent) 8. Sensory Loss (pinprick arms/legs/face) - 0(Normal) 9. Best Language: Aphasia (description/naming/reading) - 1(Mild to moderate aphasia) 10. Dysarthria (speech clarity - read or repeat words) - 0(Normal) 11. Extinction and Inattention (visual/tactile/auditory/spatial/personal) - 0(No abnormality) Initials: pm1 Signatures: Dispatcher [employer] EDMS Daniel Cooper MD MD rn Garcia, Cindy, RN RN cg Juan Hubbard, MEDICAL INSURANCE CLAIMS PROCESSOR MEDICAL INSURANCE CLAIMS PROCESSOR pm1 Mary Barnes RN RN vg1 Corrections: (The following items were deleted from the chart) 14:29 12:21 Abdomen Pelvis W [id number] ordered. EDMS EDMS 14:55 12:34 Neuro: Orientation: to person, place, time, situation, Mentation: is pm1 normal, Motor: moves all fours, Sensation: no obvious gross deficits, pm1 14:58 12:34 Back: No spinal tenderness. No costovertebral tenderness. Full range of pm1 motion. MS/ Extremity: Pulses equal, no cyanosis. Neurovascular intact. Full, normal range of motion. pm1 15:16 15:09 NIHSS Score: 1 pm1 pm1 15:42 12:33 CORONAVIRUS ordered. EDMS EDMS 23:26 14:54 Telemetry/MedSurg (observation) pm1 cg 23:26 14:54 pm1
[2021-05-25] MEDS ORDERED: CLOPIDOGREL 75 MG TABLET ONE (15:44)
[2021-05-25] MEDS ORDERED: FOLIC ACID 5 MG/ML VIAL ONE (15:45)
[2021-05-25] MEDS ORDERED: ONDANSETRON 4 MG/2 ML VIAL IV PRN (17:40)
[2021-05-25] MEDS ORDERED: ACETAMINOPHEN 500 MG TAB PO PRN (17:40)
[2021-05-25] MEDS ORDERED: MORPHINE 2 MG/ML SYR IV PRN (17:40)
[2021-05-25] MEDS ORDERED: ENOXAPARIN 40 MG/0.4 ML SQ SCH (18:00)
[2021-05-25] MEDS ORDERED: NA CHLORIDE 0.9% 1,000 ML IV SCH (18:00)
[2021-05-25] MEDS ORDERED: ATORVASTATIN 10 MG TAB PO SCH (21:00)
[2021-05-25] MEDS ORDERED: ENOXAPARIN 40 MG/0.4 ML SQ ONE (21:04)
[2021-05-25] MEDS ORDERED: NA CHLORIDE 0.9% 1,000 ML ONE (21:04)
[2021-05-25] MEDS ORDERED: ATORVASTATIN 10 MG TAB ONE (21:43)
[2021-05-25] MEDS ORDERED: TRAZODONE 50 MG TABLET PO ONE (21:51)
[2021-05-25 22:03] VITALS: BMI 30.7
[2021-05-25] MEDS ORDERED: TRAZODONE 50 MG TABLET ONE (22:32)
[2021-05-26 05:35] LABS: Absolute Lymphocytes (CBC) 1.4 K/uL (0.7-4.9); Basophils % 0.5 % (0-1.3); Hematocrit 41.6 % (39.6-49.0); Lymphocytes % 18.8 % (15.3-44.8); MPV 8.8 fL (7.6-11.3); Protime INR 1.08; RBC Red Blood Cell Count 4.68 M/uL (4.33-5.43)
[2021-05-26 05:36] LABS: Albumin 3.4 g/dL (3.4-5.0); Bilirubin Total 0.3 mg/dL (0.2-1.0); Potassium 3.7 mmol/L (3.5-5.1); Protein, Total 6.7 g/dL (6.4-8.2)
--- NOTE | 2021-05-26 07:43 | P.HP ---
Certification for Inpatient Patient admitted to: Observation With expected LOS: <2 Midnights Patient will require the following post-hospital care: None Practitioner: I am a practitioner with admitting privileges, knowledge of patient current condition, hospital course, and medical plan of care. Services: Services provided to patient in accordance with Admission requirements found in Title 42 Section 412.3 of the Code of Federal Regulations Patient History Date of Service: 05/25/21 Reason for admission: AMS; ? LEFT BASAL GANCLIA INFARCT History of Present Illness: Pt is a 65yo with AMS; pt has been altered for the last 5-7 days. Patient with a history of liver disease. Pt CT with age indeterminate BG infarct. Patient was admitted to the hospital for further evaluation. Patient needs to have MRI to further evaluate this. However, patient has a pain pump. This is compatible. Patient will be admitted for closer observation. Patient feels like his clinical symptoms are better. He does not really feel that week. He has some sensory deficits. He will be admitted for evaluation. Allergies NSAIDS Allergy (Uncoded 05/02/16 01:06) Unknown Lisinopril Adverse Reaction (Intermediate, Uncoded 03/12/16 01:31) heart rate drops Propranolol Adverse Reaction (Intermediate, Uncoded 03/12/16 01:31) heart rate drops Home Medications: Finasteride [Proscar*] 5 mg PO DAILY 10/18/15 Furosemide [Lasix*] 20 mg PO DAILY 10/18/15 Levothyroxine [Synthroid*] 12.5 mcg PO DAILY 10/18/15 Omeprazole [Prilosec] 20 mg PO DAILY 10/18/15 Spironolactone [Aldactone] 50 mg PO DAILY 10/18/15 Tamsulosin [Flomax*] 0.4 mg PO DAILY 10/18/15 Zolpidem Tartrate [Ambien*] 5 mg PO DAILY 10/18/15 Lactulose 10 gm PO TID 10/20/15 levoFLOXacin [Levaquin*] 500 mg PO DAILY #5 tab 10/20/15 Lactulose 20 gm PO DAILY #100 ml 03/13/16 Ondansetron HCl [Zofran] 4 mg PO Q6HP PRN #10 tablet 03/13/16 levoFLOXacin [Levaquin] 500 mg PO DAILY #7 tab 03/13/16 metroNIDAZOLE [Flagyl*] 500 mg PO Q8H #21 tablet 03/13/16 Aspirin [Aspirin EC 81 MG] 162 mg PO DAILY #60 tablet. 05/26/21 Atorvastatin Calcium [Lipitor*] 10 mg PO BEDTIME #30 tab 05/26/21 - Past Medical/Surgical History Has patient received pneumonia vaccine in the past: Yes Diabetic: No -: IR digit -: Hepatitis-C -: cirrhosis -: chronic back pain -: esophgeal varicies -: cardic myopathy -: appendectomy -: cholecystectomy -: right BKA -: 2 back surgery -: vasectomy - Family History Father Medical History: Cancer - Social History Smoking Status: Former smoker Alcohol use: No CD- Drugs: No Caffeine use: Yes Place of Residence: Home Review of Systems 10-point ROS is otherwise unremarkable Physical Examination - Vital Signs Temperature: 97.0 F Blood Pressure: 118/61 Pulse: 50 Respirations: 20 Pulse Ox (%): 91 - Physical Exam General: Alert, In no apparent distress, Oriented x3, Confused HEENT: Atraumatic, PERRLA, Mucous membr. moist/pink, EOMI, Sclerae nonicteric Neck: Supple, 2+ carotid pulse no bruit, No LAD, Without JVD or thyroid abnormality Respiratory: Clear to auscultation bilaterally, Normal air movement Cardiovascular: Regular rate/rhythm, Normal S1 S2, No murmurs Gastrointestinal: Normal bowel sounds, Soft and benign, Non-distended, No tend erness Musculoskeletal: No clubbing, No swelling, No tenderness Integumentary: No rashes Neurological: Normal speech, Normal tone, Sensation intact, Cranial nerves 3-12 intact, Normal affect Lymphatics: No axilla or inguinal lymphadenopathy - Studies Laboratory Data (last 24 hrs) 05/25/21 14:10: PT 12.9 H, INR 1.12 05/25/21 14:10: WBC 10.30, Hgb 16.6, Hct 47.9, Plt Count 186 05/25/21 14:10: Sodium 140, Potassium 4.4, BUN 23 H, Creatinine 1.15, Glucose 109 H, Magnesium 2.2, Total Bilirubin 0.7, AST 24, ALT 38, Alkaline Phosphatase 92 Assessment & Plan - Problems (Diagnosis) (1) AMS (altered mental status) Status: Acute (2) Basal ganglia infarction Status: Acute (3) Cirrhosis of liver Onset Date: 10/20/15 Status: Acute (4) Hepatitis C Onset Date: 10/20/15 Status: Acute (5) Hypertension Onset Date: 10/20/15 Status: Acute - Plan 1. Patient's MRI cannot be performed because patient has a pain receptor. 2. Patient will need antiplatelet therapy and statin therapy. 3. Monitor LFTs 4. Physical therapy evaluation 5. DVT prophylaxis 6. GI/DVT prophylaxis Discharge Plan: Home Plan to discharge in: 24 Hours - Advance Directives Does patient have a Living Will: No Does patient have a Durable POA for Healthcare: No - Code Status/Comfort Care Code Status Assessed: Yes Code Status: Full Code Critical Care: No Time Spent Managing PTS Care (In Minutes): 45
--- NOTE | 2021-05-26 07:58 | EKG ---
Test Date: 2021-05-25 Test Time: 12:36:19 Paperhanger Apprentice: YOANA MEASUREMENT RESULTS: Intervals: Rate: 56 [place]: 182 QRSD: 86 QT: 442 QTc: 426 [place]: P: 37 [place]: 182 QRS: 70 T: 31 INTERPRETIVE STATEMENTS: Sinus bradycardia Otherwise normal ECG Compared to ECG 10/05/2019 20:41:00 Sinus rhythm no longer present Electronically Signed On 05-26-21 07:56:08 CDT by Fritz Stuart
[2021-05-26] MEDS ORDERED: ASPIRIN EC 81 MG TAB PO SCH (09:00)
[2021-05-26] MEDS ORDERED: ASPIRIN EC 81 MG TAB PO ONE (09:59)
[2021-05-26 13:55] VITALS: O2SAT 94
[2021-06-01 07:47] VITALS: BP 118/61; TEMP 97
--- NOTE | 2021-06-01 07:49 | P.DS ---
Discharge Date: 05/26/21 Disposition: DC HOME/HOME HEALTH CARE Discharge Condition: GOOD Reason for Admission: AMS; ? LEFT BASAL GANCLIA INFARCT - Problems (1) AMS (altered mental status) Status: Acute (2) Basal ganglia infarction Status: Acute (3) Cirrhosis of liver Onset Date: 10/20/15 Status: Acute (4) Hepatitis C Onset Date: 10/20/15 Status: Acute (5) Hypertension Onset Date: 10/20/15 Status: Acute Brief History of Present Illness: Pt is a 65yo with AMS; pt has been altered for the last 5-7 days. Patient with a history of liver disease. Pt CT with age indeterminate BG infarct. Patient was admitted to the hospital for further evaluation. Patient needs to have MRI to further evaluate this. However, patient has a pain pump. This is compatible. P atient will be admitted for closer observation. Patient feels like his clinical symptoms are better. He does not really feel that week. He has some sensory deficits. He will be admitted for evaluation. Hospital Course: Patient had done well during hospital stay. Clinically doing much better. We will continue with antiplatelet therapy. Will continue with statin therapy. At this time, patient is stable for discharge home. Vital Signs/Physical Exam: Temp Pulse Resp BP Pulse Ox 97.0 F 50 20 118/61 91 06/01/21 07:47 06/01/21 07:47 06/01/21 07:47 06/01/21 07:47 06/01/21 07:47 General: Alert, In no apparent distress, Oriented x3 Laboratory Data at Discharge: WBC 7.50 K/uL (4.3-10.9) D 05/26/21 05:10 Hgb 14.3 g/dL (13.6-17.9) 05/26/21 05:10 Hct 41.6 % (39.6-49.0) 05/26/21 05:10 Plt Count 137 K/uL (152-406) L D 05/26/21 05:10 PT 12.4 SECONDS (9.5-12.5) 05/26/21 05:10 INR 1.08 05/26/21 05:10 APTT 29.8 SECONDS (24.3-36.9) 05/26/21 05:10 Sodium 145 mmol/L (136-145) 05/26/21 05:10 Potassium 3.7 mmol/L (3.5-5.1) 05/26/21 05:10 BUN 22 mg/dL (7-18) H 05/26/21 05:10 Creatinine 0.95 mg/dL (0.55-1.3) 05/26/21 05:10 Glucose 112 mg/dL (74-106) H 05/26/21 05:10 Magnesium 2.2 mg/dL (1.8-2.4) 05/25/21 14:10 Total Bilirubin 0.3 mg/dL (0.2-1.0) 05/26/21 05:10 AST 19 U/L (15-37) 05/26/21 05:10 ALT 28 U/L (12-78) 05/26/21 05:10 Alkaline Phosphatase 99 U/L (45-117) 05/26/21 05:10 Triglycerides 125 mg/dL (<150) 05/26/21 05:10 Cholesterol 74 mg/dL (<200) 05/26/21 05:10 HDL Cholesterol 21 mg/dL (40-60) L 05/26/21 05:10 Cholesterol/HDL Ratio 3.52 05/26/21 05:10 Home Medications: Finasteride [Proscar*] 5 mg PO DAILY 10/18/15 Furosemide [Lasix*] 20 mg PO DAILY 10/18/15 Levothyroxine [Synthroid*] 12.5 mcg PO DAILY 10/18/15 Omeprazole [Prilosec] 20 mg PO DAILY 10/18/15 Spironolactone [Aldactone] 50 mg PO DAILY 10/18/15 Tamsulosin [Flomax*] 0.4 mg PO DAILY 10/18/15 Zolpidem Tartrate [Ambien*] 5 mg PO DAILY 10/18/15 Lactulose 10 gm PO TID 10/20/15 levoFLOXacin [Levaquin*] 500 mg PO DAILY #5 tab 10/20/15 Lactulose 20 gm PO DAILY #100 ml 03/13/16 Ondansetron HCl [Zofran] 4 mg PO Q6HP PRN #10 tablet 03/13/16 levoFLOXacin [Levaquin] 500 mg PO DAILY #7 tab 03/13/16 metroNIDAZOLE [Flagyl*] 500 mg PO Q8H #21 tablet 03/13/16 Aspirin [Aspirin EC 81 MG] 162 mg PO DAILY #60 tablet. 05/26/21 Atorvastatin Calcium [Lipitor*] 10 mg PO BEDTIME #30 tab 05/26/21 New Medications: Aspirin [Aspirin EC 81 MG] 162 mg PO DAILY #60 tablet. Atorvastatin Calcium [Lipitor*] 10 mg PO BEDTIME #30 tab Physician Discharge Instructions: OK TO DC IV AND DC HOME FOLLOW-UP WITH PCP IN 1-2 WEEKS CALL HI AT [phone] IF ANY QUESTIONS REGARDING HOSPITAL STAY RETURN TO THE ER IF SYMPTOMS WORSENS NEUROLOGY FOLLOW-UP FOR STROKE EVALUATION OUTPT HOME HEALTH Diet: AHA Activity: Fall precautions Followup: Jemma Young DO [Primary Care Provider] - Time spent managing pt's care (in minutes): 35
== END 2021-05-26 13:23 | disposition home health service (06) ==
LOC: ER 10:51 → ERHOLD 17:40
PROVIDERS: ADMIT Hospitalist; ATTEND Hospitalist
PROC: 05HY33Z Insertion of Infusion Device into Upper Vein, Percutaneous Approach (ICD-10-PCS; principal; 2021-05-25)
DX: I63.81 Other cerebral infarction due to occlusion or stenosis of small artery (principal); R29.702 NIHSS score 2; K74.60 Unspecified cirrhosis of liver; I85.10 Secondary esophageal varices without bleeding; B19.20 Unspecified viral hepatitis C without hepatic coma; I10 Essential (primary) hypertension; I42.9 Cardiomyopathy, unspecified; G89.29 Other chronic pain; M54.9 Dorsalgia, unspecified; D64.9 Anemia, unspecified; I25.10 Atherosclerotic heart disease of native coronary artery without angina pectoris; F03.90 Unspecified dementia, unspecified severity, without behavioral disturbance, psychotic disturbance, mood disturbance, and anxiety; E03.9 Hypothyroidism, unspecified; Z79.82 Long term (current) use of aspirin; Z88.8 Allergy status to other drugs, medicaments and biological substances; Z89.511 Acquired absence of right leg below knee; Z90.49 Acquired absence of other specified parts of digestive tract; Z87.891 Personal history of nicotine dependence; Z86.010 Personal history of colon polyps; Z20.822 Contact with and (suspected) exposure to COVID-19
CPT/HCPCS: 96365; 93005; 85025 ×2; 80048; 36415; 82140 ×2; 83735; 85610 ×2; 80061; 80076; 85730; 84484; 80053; 83880; 70450; 74176; 71045; 97116; 97161; 99285; 96366; 36569; U0003; J1650; J7030; G0378 ×3

== ENCOUNTER 2021-07-27 15:03 | Observation (INO) | payer OTHER ==
--- NOTE | 2021-07-27 15:53 | RAD REPORT ---
EXAM DESCRIPTION: [place] Single View07/27/2021 3:21 pm CLINICAL HISTORY: Chest pain COMPARISON: May 2021 FINDINGS: The lungs appear clear of acute infiltrate. The heart is normal size IMPRESSION: No acute abnormalities displayed
[2021-07-27 17:13] LABS: Basophils % 0.7 % (0-1.3); Hematocrit 42.3 % (39.6-49.0); MPV 9.5 fL (7.6-11.3); RBC Red Blood Cell Count 4.79 M/uL (4.33-5.43)
[2021-07-27 17:14] LABS: Protime INR 1.07
[2021-07-27 17:26] LABS: ALT/SGPT 29 U/L (12-78); AST/SGOT 19 U/L (15-37); Albumin 3.8 g/dL (3.4-5.0); Alkaline Phosphatase 92 U/L (45-117); BUN Blood Urea Nitrogen 12 mg/dL (7-18); Bicarbonate 25 mmol/L (21-32); Bilirubin Direct 0.1 mg/dL (0-0.2); Bilirubin Total 0.4 mg/dL (0.2-1.0); Glucose Level 89 mg/dL (74-106); NT PRO-BNP 152 pg/mL (<125); Potassium 3.8 mmol/L (3.5-5.1); Protein, Total 7.4 g/dL (6.4-8.2); Sodium Level 142 mmol/L (136-145); Troponin (Emerg Dept Use Only) < 0.02 ng/mL (0.0-0.045)
[2021-07-27] MEDS ORDERED: ASPIRIN 81 MG CHEWABLE TABLET ONE (17:32)
[2021-07-27] MEDS ORDERED: ONDANSETRON 4 MG/2 ML VIAL ONE (17:32)
[2021-07-27] MEDS ORDERED: MORPHINE 4 MG/ML SYR ONE (17:32)
--- NOTE | 2021-07-27 17:32 | ER ---
Nurse's Notes [facility] Name: Papito Barry Age: 66 yrs Sex: Male : 1955 Arrival Date: 07/27/2021 Time: 15:04 Bed 26 Private MD: Diagnosis: Chest pain, unspecified Presentation: 07/27 15:15 Chief complaint: Patient's son or daughter states: Pt began having chest pain last ld1 night. Pt c/o pain in left upper chest. Coronavirus screen: At this time, the client does not indicate any symptoms associated with coronavirus-19. Ebola Screen: No symptoms or risks identified at this time. Initial Sepsis Screen: Does the patient meet any 2 criteria? No. Patient's initial sepsis screen is negative. Does the patient have a suspected source of infection? No. Patient's initial sepsis screen is negative. Risk Assessment: Do you want to hurt yourself or someone else? Patient reports no desire to harm self or others. Onset of symptoms was July 27, 2021. 15:15 Method Of Arrival: Ambulatory ld1 15:15 Acuity: [place] 3 ld1 Triage Assessment: 15:18 General: Appears in no apparent distress. uncomfortable, Behavior is cooperative, ld1 appropriate for age, anxious. Pain: Complains of pain in anterior aspect of left upper chest and left breast Pain does not radiate. Pain currently is 7 out of 10 on a pain scale. Quality of pain is described as pressure, Pain began 1 day ago. Is continuous. EENT: No signs and/or symptoms were reported regarding the EENT system. Neuro: Level of Consciousness is awake, alert, obeys commands, Oriented to person, place, time, situation. Cardiovascular: Capillary refill < 3 seconds Patient's skin is warm and dry. Respiratory: Airway is patent Respiratory effort is even, unlabored, Respiratory pattern is regular, symmetrical. GI: Abdomen is flat, non-distended. : No signs and/or symptoms were reported regarding the genitourinary system. Derm: No signs and/or symptoms reported regarding the dermatologic system. Musculoskeletal: No signs and/or symptoms reported regarding the musculoskeletal system. Historical: - Allergies: 15:18 Lisinopril; ld1 15:18 NSAIDS; ld1 15:18 Propranolol; ld1 - Home Meds: 15:18 atorvastatin 80 mg Oral tab 1 tab once daily [Active]; bupropion HCl 150 mg Oral TbER 1 ld1 tab once daily [Active]; ibuprofen 600 mg Oral tab 1 tab twice a day [Active]; lactulose 10 gram/15 mL Oral soln 15 mL 3 times per day [Active]; Lasix 20 mg Oral tab 1 tab once daily [Active]; levothyroxine 175 mcg tab 1 tab once daily [Active]; pantoprazole 40 mg Oral TbEC 1 tab once daily [Active]; tamsulosin 0.4 mg Oral cp24 1 cap once daily [Active]; trazodone 100 mg Oral tab 1 tab nightly [Active]; Vitamin B-12 1,000 mcg Oral tab daily [Active]; - PMHx: 15:18 colon polyps removed; Anemia; CAD; cardiomyopathy; Cirrhosis; Hepatitis; Dementia; ld1 hepititis C-gone now; Hypertension; Hypothyroidism; varacies; - Immunization history:: Adult Immunizations up to date. - Social history:: Smoking status: Patient denies any tobacco usage or history of. Screenin:21 Abuse screen: Denies threats or abuse. Denies injuries from another. Nutritional ld1 screening: No deficits noted. Tuberculosis screening: No symptoms or risk factors identified. Fall Risk None identified. Assessment: 15:21 Reassessment: See triage assessment. Pain: Complains of pain in anterior aspect of left ld1 upper chest and left breast Pain currently is 7 out of 10 on a pain scale. Quality of pain is described as pressure, Pain began 1 day ago. Is continuous. 17:04 Reassessment: Patient appears in no apparent distress at this time. Patient and/or ld1 family updated on plan of care and expected duration. Pain level reassessed. Vital Signs: 15:15 BP 153 / 92; Pulse 86; Resp 18; Temp 98.7(O); Pulse Ox 97% on R/A; Weight 99.79 kg; ld1 Height 5 ft. 10 in. (177.80 cm); Pain 7/10; 17:04 BP 168 / 102; Pulse 78; Resp 18; Pulse Ox 97% on R/A; ld1 15:15 Body Mass Index 31.57 (99.79 kg, 177.80 cm) ld1 ED Course: 15:04 Patient arrived in ED. ds1 15:06 [facility] Spencer [facility] jr8 15:06 Keegan Rivera MD is Attending Physician. jr8 15:18 Triage completed. ld1 15:18 Arm band placed on right wrist. ld1 15:20 XRAY Chest (1 view) In Process Unspecified. EDMS 15:21 EKG completed in triage. Results shown to MD. ld1 15:21 Patient has correct armband on for positive identification. Bed in low position. Call ld1 light in reach. Side rails up X2. dispatcher tow truck on. Pulse ox on. NIBP on. Door closed. Noise minimized. Warm blanket given. 15:21 No provider procedures requiring assistance completed. Patient maintains SpO2 ld1 saturation greater than 95% on room air. 16:11 Initial lab(s) drawn, by me, sent to lab. Inserted saline lock: 20 gauge in left hand, em1 using aseptic technique. Blood collected. 17:31 Jose L Santiago is Hospitalizing Provider. jr8 17:54 Hemant Garcia DO is Hospitalizing Provider. la1 21:14 Patient admitted, IV remains in place. lh3 Administered Medications: 17:12 Drug: Aspirin Chewable Tablet 324 mg Route: PO; ld1 22:24 Follow up: Response: No adverse reaction lh3 17:12 Drug: morphine 4 mg Route: IVP; Site: left hand; ld1 22:24 Follow up: Response: No adverse reaction lh3 17:12 Drug: Zofran (Ondansetron) 4 mg Route: IVP; Site: left hand; ld1 22:24 Follow up: Response: No adverse reaction lh3 Outcome: 17:32 Decision to Hospitalize by Provider. jr8 21:14 Admitted to Med/surg room 419, with chart. lh3 21:14 Condition: good 22:43 Patient left the ED. lh3 Signatures: Dispatcher [employer] EDMS Jeanne Peterson ds1 Brice Leigh em1 Rico Spencer PA PA jr8 Reese Fuentes, TIRE BUILDER OPERATOR-C TIRE BUILDER OPERATOR-Cla1 Fiona Del Valle, RN RN ld1 Monica Schulte RN RN lh3 Corrections: (The following items were deleted from the chart) 19:03 18:18 CORONAVIRUS+MR.LAB.BRZ drawn and sent. ld1 EDMS
--- NOTE | 2021-07-27 17:32 | EDPHYS ---
Physician Documentation [facility] Name: Papito Barry Age: 66 yrs Sex: Male : 1955 Arrival Date: 07/27/2021 Time: 15:04 Bed 26 Private MD: ED Physician Keegan Rivera HPI: 07/27 15:52 This 66 yrs old Male presents to ER via Ambulatory with complaints of Chest jr8 Pain, Breathing Difficulty. 15:52 Onset: The symptoms/episode began/occurred acutely, last night. Associated signs and jr8 symptoms: Pertinent positives: shortness of breath. Modifying factors: The patient symptoms are alleviated by nothing, the patient symptoms are aggravated by nothing. The patient has not experienced similar symptoms in the past. The patient has not recently seen a physician. A 66-year-old male patient that came in by his own vehicle for sudden onset of chest pain that started last night associated with shortness of breath and mild nausea.. Historical: - Allergies: 15:18 Lisinopril; ld1 15:18 NSAIDS; ld1 15:18 Propranolol; ld1 - Home Meds: 15:18 atorvastatin 80 mg Oral tab 1 tab once daily [Active]; bupropion HCl 150 mg Oral TbER 1 ld1 tab once daily [Active]; ibuprofen 600 mg Oral tab 1 tab twice a day [Active]; lactulose 10 gram/15 mL Oral soln 15 mL 3 times per day [Active]; Lasix 20 mg Oral tab 1 tab once daily [Active]; levothyroxine 175 mcg tab 1 tab once daily [Active]; pantoprazole 40 mg Oral TbEC 1 tab once daily [Active]; tamsulosin 0.4 mg Oral cp24 1 cap once daily [Active]; trazodone 100 mg Oral tab 1 tab nightly [Active]; Vitamin B-12 1,000 mcg Oral tab daily [Active]; - PMHx: 15:18 colon polyps removed; Anemia; CAD; cardiomyopathy; Cirrhosis; Hepatitis; Dementia; ld1 hepititis C-gone now; Hypertension; Hypothyroidism; varacies; - Immunization history:: Adult Immunizations up to date. - Social history:: Smoking status: Patient denies any tobacco usage or history of. ROS: 15:52 Eyes: Negative for injury, pain, redness, and discharge, ENT: Negative for injury, jr8 pain, and discharge, Neck: Negative for injury, pain, and swelling, Abdomen/GI: Negative for abdominal pain, nausea, vomiting, diarrhea, and constipation, Back: Negative for injury and pain, MS/Extremity: Negative for injury and deformity, Skin: Negative for injury, rash, and discoloration, Neuro: Negative for headache, weakness, numbness, tingling, and seizure. 15:52 Cardiovascular: Positive for chest pain, Negative for edema, orthopnea, palpitations, paroxysmal nocturnal dyspnea. 15:52 Respiratory: Positive for shortness of breath. Exam: 15:52 Eyes: Pupils equal round and reactive to light, extra-ocular motions intact. Lids and jr8 lashes normal. Conjunctiva and sclera are non-icteric and not injected. Cornea within normal limits. Periorbital areas with no swelling, redness, or edema. ENT: Nares patent. No nasal discharge, no septal abnormalities noted. Tympanic membranes are normal and external auditory canals are clear. Oropharynx with no redness, swelling, or masses, exudates, or evidence of obstruction, uvula midline. Mucous membranes moist. Neck: Trachea midline, no thyromegaly or masses palpated, and no cervical lymphadenopathy. Supple, full range of motion without nuchal rigidity, or vertebral point tenderness. No Meningismus. Cardiovascular: Regular rate and rhythm with a normal S1 and S2. No gallops, murmurs, or rubs. Normal PMI, no JVD. No pulse deficits. Respiratory: Lungs have equal breath sounds bilaterally, clear to auscultation and percussion. No rales, rhonchi or wheezes noted. No increased work of breathing, no retractions or nasal flaring. Abdomen/GI: Soft, non-tender, with normal bowel sounds. No distension or tympany. No guarding or rebound. No evidence of tenderness throughout. Back: No spinal tenderness. No costovertebral tenderness. Full range of motion. Skin: Warm, dry with normal turgor. Normal color with no rashes, no lesions, and no evidence of cellulitis. Neuro: Awake and alert, GCS 15, oriented to person, place, time, and situation. Cranial nerves II-XII grossly intact. Motor strength 5/5 in all extremities. Sensory grossly intact. 15:52 Musculoskeletal/extremity: Extremities: grossly normal except: noted in the right bka : ROM: intact in all extremities, Circulation is intact in all extremities. Sensation intact. Vital Signs: 15:15 BP 153 / 92; Pulse 86; Resp 18; Temp 98.7(O); Pulse Ox 97% on R/A; Weight 99.79 kg; ld1 Height 5 ft. 10 in. (177.80 cm); Pain 7/10; 17:04 BP 168 / 102; Pulse 78; Resp 18; Pulse Ox 97% on R/A; ld1 15:15 Body Mass Index 31.57 (99.79 kg, 177.80 cm) ld1 MDM: 15:06 Patient medically screened. 8 17:32 Data reviewed: vital signs, nurses notes, lab test result(s), EKG, radiologic studies, jr8 plain films. Data interpreted: Pulse oximetry: on room air is 97 %. Interpretation: normal. Counseling: I had a detailed discussion with the patient and/or guardian regarding: the historical points, exam findings, and any diagnostic results supporting the discharge/admit diagnosis, lab results, radiology results, the need for further work-up and treatment in the hospital. 07/27 15:06 Order name: Basic Metabolic Panel; Complete Time: 17:30 07/27 15:06 Order name: CBC with Diff; Complete Time: 17:22 07/27 15:06 Order name: LFT's; Complete Time: 17:30 07/27 15:06 Order name: Magnesium; Complete Time: 17:30 07/27 15:06 Order name: NT PRO-BNP; Complete Time: 17:30 07/27 15:06 Order name: PT-INR; Complete Time: 17:22 07/27 15:06 Order name: Troponin (emerg Dept Use Only); Complete Time: 17:30 07/27 15:06 Order name: XRAY Chest (1 view); Complete Time: 15:55 07/27 15:06 Order name: EKG; Complete Time: 15:07 07/27 19:03 Order name: SARS-COV-2 RT PCR; Complete Time: 20:19 EDMS 07/27 15:06 Order name: Cardiac monitoring; Complete Time: 15:09 07/27 15:06 Order name: EKG - Nurse/Tech; Complete Time: 15:09 07/27 15:06 Order name: IV Saline Lock; Complete Time: 15:07/27 15:06 Order name: Labs collected and sent; Complete Time: 15:07/27 15:06 Order name: O2 Per Protocol; Complete Time: 15:07/27 15:06 Order name: O2 Sat Monitoring; Complete Time: 15:07/27 16:25 Order name: Labs - recollect needed: recollect green,blue and lavender tube; Complete bd Time: 16:59 Administered Medications: 17:12 Drug: Aspirin Chewable Tablet 324 mg Route: PO; ld1 22:24 Follow up: Response: No adverse reaction lh3 17:12 Drug: morphine 4 mg Route: IVP; Site: left hand; ld1 22:24 Follow up: Response: No adverse reaction lh3 17:12 Drug: Zofran (Ondansetron) 4 mg Route: IVP; Site: left hand; ld1 22:24 Follow up: Response: No adverse reaction lh3 Disposition: 07/28 08:52 Co-signature as Attending Physician, Keegan Rivera MD I agree with the assessment and kdr plan of care. Disposition Summary: 07/27/21 17:32 Hospitalization Ordered Hospitalization Status: Observation [facility] Location: Telemetry/MedSurg (observation) [facility] Condition: Stable jr8 Problem: new jr8 Symptoms: have improved jr8 Bed/Room Type: Standard [facility] Provider: Hemant Garcia(07/27/21 17:54) la1 Room Assignment: [facility](07/27/21 20:59) Diagnosis - Chest pain, unspecified 8 Forms: - Medication Reconciliation Form jr8 - SBAR form jr8 Signatures: Dispatcher [employer] Amberly Mohamud Martha, RN RN mw Rittger, Kevin, MD MD [facility] Rico Spencer PA PA jr8 Reese Fuentes, MODEL AND DYE PERSON-C MODEL AND DYE PERSON-Cla1 Fiona Del Valle RN RN ld1 Monica Schulte RN lh3 Corrections: (The following items were deleted from the chart) 07/27 17:54 17:32 Jose L Santiago 8 la1 19:03 18:02 CORONAVIRUS+MR.LAB.BRZ ordered. EDMS EDMS 20:59 17:32 jr8 mw
--- NOTE | 2021-07-27 19:20 | P.HP ---
Certification for Inpatient Patient admitted to: Observation With expected LOS: <2 Midnights Patient will require the following post-hospital care: None Practitioner: I am a practitioner with admitting privileges, knowledge of patient current condition, hospital course, and medical plan of care. Services: Services provided to patient in accordance with Admission requirements found in Title 42 Section 412.3 of the Code of Federal Regulations Patient History Date of Service: 07/27/21 Primary Care Provider: [facility] Reason for admission: Chest pain History of Present Illness: 66-year-old male with history of hypertension, cirrhosis of the liver secondary to hepatitis C, dementia, hypothyroidism presents emergency department for chest pain. Patient reports chest pain began yesterday morning is primarily located in the left anterior chest wall radiating to left arm with some associated lightheadedness/shortness of breath. Patient was evaluated in the emergency department labs were significant for mild thrombocytopenia with platelet count 143 troponin negative EKG without acute changes chest x-ray unremarkable. Patient reports that he had a chemical stress test approximately 1 year ago at the [facility] which was reportedly normal, ED provider wishes to admit under observation for chest pain rule out. Allergies NSAIDS Allergy (Uncoded 05/02/16 01:06) Unknown Lisinopril Adverse Reaction (Intermediate, Uncoded 03/12/16 01:31) heart rate drops Propranolol Adverse Reaction (Intermediate, Uncoded 03/12/16 01:31) heart rate drops Home Medications: Finasteride [Proscar*] 5 mg PO DAILY 10/18/15 Furosemide [Lasix*] 20 mg PO DAILY 10/18/15 Levothyroxine [Synthroid*] 12.5 mcg PO DAILY 10/18/15 Omeprazole [Prilosec] 20 mg PO DAILY 10/18/15 Spironolactone [Aldactone] 50 mg PO DAILY 10/18/15 Tamsulosin [Flomax*] 0.4 mg PO DAILY 10/18/15 Zolpidem Tartrate [Ambien*] 5 mg PO DAILY 10/18/15 Lactulose 10 gm PO TID 10/20/15 levoFLOXacin [Levaquin*] 500 mg PO DAILY #5 tab 10/20/15 Lactulose 20 gm PO DAILY #100 ml 03/13/16 Ondansetron HCl [Zofran] 4 mg PO Q6HP PRN #10 tablet 03/13/16 levoFLOXacin [Levaquin] 500 mg PO DAILY #7 tab 03/13/16 metroNIDAZOLE [Flagyl*] 500 mg PO Q8H #21 tablet 03/13/16 Aspirin [Aspirin EC 81 MG] 162 mg PO DAILY #60 tablet. 05/26/21 Atorvastatin Calcium [Lipitor*] 10 mg PO BEDTIME #30 tab 05/26/21 - Past Medical/Surgical History Diabetic: No -: IR digit -: Hepatitis-C -: cirrhosis -: chronic back pain -: esophgeal varicies -: cardic myopathy -: appendectomy -: cholecystectomy -: right BKA -: 2 back surgery -: vasectomy Psychosocial/ Personal History: Disabled, lives at home with family - Family History Father -: Cancer - Social History Alcohol use: No CD- Drugs: No Caffeine use: Yes Place of Residence: Home Review of Systems 10-point ROS is otherwise unremarkable Respiratory: Shortness of Breath Cardiovascular: Chest Pain, Light Headedness, As per HPI Physical Examination - Physical Exam General: Alert, In no apparent distress, Oriented x3 HEENT: Atraumatic, PERRLA, Mucous membr. moist/pink, EOMI, Sclerae nonicteric Neck: Supple, 2+ carotid pulse no bruit, No LAD, Without JVD or thyroid a bnormality Respiratory: Clear to auscultation bilaterally, Normal air movement Cardiovascular: Regular rate/rhythm, Normal S1 S2, Other (TTP left chest wall) Gastrointestinal: Normal bowel sounds, No tenderness Musculoskeletal: No tenderness, Other (Right BKA) Integumentary: No rashes Neurological: Normal gait, Normal speech, Normal strength at 5/5 x4 extr, Normal tone, Normal affect Lymphatics: No axilla or inguinal lymphadenopathy - Studies Laboratory Data (last 24 hrs) 07/27/21 16:57: PT 12.3, INR 1.07 07/27/21 16:57: WBC 7.30, Hgb 14.4, Hct 42.3, Plt Count 143 L 07/27/21 16:57: Sodium 142, Potassium 3.8, BUN 12, Creatinine 1.12, Glucose 89, Magnesium 2.0, Total Bilirubin 0.4, AST 19, ALT 29, Alkaline Phosphatase 92 Assessment and Plan - Plan Assessment: Chest pain rule out ACS Thrombocytopenia secondary to cirrhosis of liver-hepatitis C Hypertension Hypothyroidism Plan: Chest pain rule out ACS: Trend troponins, monitor on telemetry, cardiology consulted. Patient with stress test approximately 1 year ago that was negative per patient. Appreciate further input from cardiology. Chest pain is reproducible with palpation of the left chest wall. Daily aspirin. Thrombocytopenia secondary to cirrhosis of liver-hepatitis C: Stable, monitor platelet count, hold Lovenox for platelets less than 100. Hypertension: Obtain and continue home medications Hypothyroidism:Obtain and continue home medications DVT PPX: Lovenox Code status: Full Discharge Plan: Home Plan to discharge in: 24 Hours - Advance Directives Does patient have a Living Will: No Does patient have a Durable POA for Healthcare: No - Code Status/Comfort Care Code Status Assessed: Yes (Full code) Critical Care: No Time Spent Managing Pts Care (In Minutes): 55
[2021-07-27 20:31] VITALS: BMI 30.1
[2021-07-27] MEDS ORDERED: TRAZODONE 50 MG TABLET PO PRN (20:31)
[2021-07-27] MEDS ORDERED: TRAMADOL HCL 50 MG TAB PO PRN (20:31)
[2021-07-27] MEDS ORDERED: ONDANSETRON 4 MG/2 ML VIAL IV PRN (20:31)
[2021-07-27] MEDS ORDERED: TAMSULOSIN 0.4 MG SR CAP PO SCH (21:00)
[2021-07-27] MEDS ORDERED: TAMSULOSIN 0.4 MG SR CAP ONE (22:41)
[2021-07-27 23:01] VITALS: O2SAT 97
[2021-07-28 04:08] LABS: Absolute Lymphocytes (CBC) 0.8 K/uL (0.7-4.9); Basophils % 0.9 % (0-1.3); Hematocrit 38.9 % (39.6-49.0); Lymphocytes % 17.6 % (15.3-44.8); RBC Red Blood Cell Count 4.39 M/uL (4.33-5.43)
[2021-07-28 04:31] LABS: ALT/SGPT 38 U/L (12-78); AST/SGOT 36 U/L (15-37); Albumin 3.2 g/dL (3.4-5.0); Alkaline Phosphatase 101 U/L (45-117); BUN Blood Urea Nitrogen 14 mg/dL (7-18); Bicarbonate 28 mmol/L (21-32); Bilirubin Total 0.3 mg/dL (0.2-1.0); Glucose Level 108 mg/dL (74-106); HDL Cholesterol 25 mg/dL (40-60); LDL Cholesterol, Calculated 45 (<130); Potassium 3.8 mmol/L (3.5-5.1); Protein, Total 6.4 g/dL (6.4-8.2); Sodium Level 143 mmol/L (136-145); Thyroid Stimulating Hormone 0.245 uIU/mL (0.360-3.740); Troponin I < 0.02 ng/mL (0.0-0.045)
--- NOTE | 2021-07-28 06:08 | P.DS ---
Admission Date: 07/27/21 Discharge Date: 07/28/21 Primary Care Provider: [facility] Disposition: ROUTINE DISCHARGE Discharge Condition: GOOD Reason for Admission: Chest pain Consultations: Cardiology-Dr. Stuart Procedures: COVID: Negative Chest x-ray: Unremarkable Medical Problem List: Chest pain Hyperlipidemia Hypothyroidism Liver cirrhosis with history of hepatitis C BPH GERD Brief History of Present Illness: 66-year-old male with history of BPH, cirrhosis of the liver, hypothyroidism, and hyperlipidemia. Patient presented with chest pain. Chest pain located to the left anterior chest wall radiating to the left side. Patient was evaluated in the emergency room. Patient reports history of stress test 1 year ago which was normal as per patient. Patient admitted for further evaluation and treatment. Hospital Course: Patient presented with chest pain. Initial cardiac enzymes unremarkable. Patient was admitted for further evaluation and treatment. Patient reports having cardiac stress test done a year ago which was unremarkable. Patient was monitored overnight. No significant chest pain at discharge. Cardiac enzymes unremarkable. No further intervention required. At discharge patient may cont inue with aspirin daily. Recommend follow-up with cardiology as an outpatient to further evaluate. Patient can have outpatient cardiac stress test to further evaluate. Patient with hyperlipidemia. LDL 45. At discharge patient will continue with Lipitor 10 mg daily. Recommend to recheck fasting lipid panel in 4 to 6 weeks to monitor his progress. Patient with BPH. At discharge patient will continue with Proscar 5 mg daily and Flomax 0.4 mg daily. Patient with history of GERD. At discharge patient will continue with Prilosec 20 mg daily. Patient with hypothyroidism. At discharge patient will continue with Synthroid 12.5 micrograms daily. Patient with history of liver cirrhosis related to hepatitis C. At discharge patient will continue with his current medications including Lasix 20 mg daily, Aldactone 50 mg daily, and lactulose 3 times daily to maintain 2-3 bowel movements per day. Recommend follow-up with GI as directed. Vital Signs/Physical Exam: Temp Pulse Resp BP Pulse Ox 96.9 F 59 17 133/75 96 07/28/21 04:00 07/28/21 04:00 07/28/21 04:00 07/28/21 04:00 07/28/21 04:00 General: Alert, In no apparent distress, Oriented x3, Cooperative HEENT: Atraumatic Neck: Supple Respiratory: Clear to auscultation bilaterally, Normal air movement Cardiovascular: Normal pulses, Regular rate/rhythm Gastrointestinal: Normal bowel sounds, No ascites, No rebound, No guarding Musculoskeletal: No erythema, No tenderness, No warmth Integumentary: No tenderness/swelling Neurological: Normal speech, Normal strength at 5/5 x4 extr, Normal tone Laboratory Data at Discharge: WBC 4.70 K/uL (4.3-10.9) D 07/28/21 03:00 Hgb 13.0 g/dL (13.6-17.9) L 07/28/21 03:00 Hct 38.9 % (39.6-49.0) L 07/28/21 03:00 Plt Count 120 K/uL (152-406) L 07/28/21 03:00 PT 12.3 SECONDS (9.5-12.5) 07/27/21 16:57 INR 1.07 07/27/21 16:57 Sodium 143 mmol/L (136-145) 07/28/21 03:00 Potassium 3.8 mmol/L (3.5-5.1) 07/28/21 03:00 BUN 14 mg/dL (7-18) 07/28/21 03:00 Creatinine 1.18 mg/dL (0.55-1.3) 07/28/21 03:00 Glucose 108 mg/dL (74-106) H 07/28/21 03:00 Magnesium 2.0 mg/dL (1.8-2.4) 07/27/21 16:57 Total Bilirubin 0.3 mg/dL (0.2-1.0) 07/28/21 03:00 AST 36 U/L (15-37) 07/28/21 03:00 ALT 38 U/L (12-78) 07/28/21 03:00 Alkaline Phosphatase 101 U/L (45-117) 07/28/21 03:00 Troponin I < 0.02 ng/mL (0.0-0.045) 07/28/21 03:00 Triglycerides 155 mg/dL (<150) H 07/28/21 03:00 Cholesterol 101 mg/dL (<200) 07/28/21 03:00 HDL Cholesterol 25 mg/dL (40-60) L 07/28/21 03:00 Cholesterol/HDL Ratio 4.04 07/28/21 03:00 Home Medications: Finasteride [Proscar*] 5 mg PO DAILY 10/18/15 Furosemide [Lasix*] 20 mg PO DAILY 10/18/15 Levothyroxine [Synthroid*] 12.5 mcg PO DAILY 10/18/15 Omeprazole [Prilosec] 20 mg PO DAILY 10/18/15 Spironolactone [Aldactone] 50 mg PO DAILY 10/18/15 Tamsulosin [Flomax*] 0.4 mg PO DAILY 10/18/15 Zolpidem Tartrate [Ambien*] 5 mg PO DAILY 10/18/15 Lactulose 10 gm PO TID 10/20/15 Ondansetron HCl [Zofran] 4 mg PO Q6HP PRN #10 tablet 03/13/16 Aspirin [Aspirin EC 81 MG] 162 mg PO DAILY #60 tablet. 05/26/21 Atorvastatin Calcium [Lipitor*] 10 mg PO BEDTIME #30 tab 05/26/21 Physician Discharge Instructions: Patient presented with chest pain. Initial cardiac enzymes unremarkable. Patient was admitted for further evaluation and treatment. Patient reports having cardiac stress test done a year ago which was unremarkable. Patient was monitored overnight. No significant chest pain at discharge. Cardiac enzymes unremarkable. No further intervention required. At discharge patient may continue with aspirin daily. Recommend follow-up with cardiology as an outpatient to further evaluate. Patient can have outpatient cardiac stress test to further evaluate. Patient with hyperlipidemia. LDL 45. At discharge patient will continue with Lipitor 10 mg daily. Recommend to recheck fasting lipid panel in 4 to 6 weeks to monitor his progress. Patient with BPH. At discharge patient will continue with Proscar 5 mg daily and Flomax 0.4 mg daily. Patient with history of GERD. At discharge patient will continue with Prilosec 20 mg daily. Patient with hypothyroidism. At discharge patient will continue with Synthroid 12.5 micrograms daily. Patient with history of liver cirrhosis related to hepatitis C. At discharge patient will continue with his current medications including Lasix 20 mg daily, Aldactone 50 mg daily, and lactulose 3 times daily to maintain 2-3 bowel movements per day. Recommend follow-up with GI as directed. Diet: AHA Activity: Ad ally Followup: Jemma Young DO [Primary Care Provider] - Time spent managing pt's care (in minutes): 55
[2021-07-28] MEDS ORDERED: ONDANSETRON 4 MG (ODT) TAB PO PRN (08:35)
--- NOTE | 2021-07-28 08:36 | CON ---
Date of Consultation: 07/28/2021 Reason For Consultation: Chest pain and shortness of breath. History Of Present Illness: Mr. Barry is a 66-year-old male who has had a history of coronary ever ry disease but according to him, he has never had a stent or bypass surgery. He has a history of eso phageal varices and anemia secondary to cirrhosis and chronic hepatitis. He has a history of cardiom yopathy, dementia, hypertension, and hypothyroidism. By the time I saw him, he was symptom free. Hi s pain was in the midepigastric region, did not radiate, was not associated with nausea, vomiting, or diaphoresis. He did not have any PND, orthopnea, pedal edema, palpitation, or syncope. His pain wa s not exertional. Allergies: HE IS ALLERGIC TO NONSTEROIDALS, LISINOPRIL, AND PROPRANOLOL. Review of Systems: Negative. Social History: Negative. Family History: Negative. Medications: Include aspirin, Lipitor, Lasix, Proscar, Flomax, Synthroid, Prilosec, Aldactone. He w as also taking antibiotics, Flagyl and Levaquin. He gets his medication from the [facility]. Physical Examination: General: He was alert and oriented. Vital Signs: His blood pressure was 168/102. HEENT: Negative. Neck: Supple with no bruit. Chest: Clear. Cardiac: Revealed a regular rhythm and rate. No murmurs, gallops, or rubs. Abdomen: Benign. Extremities: Revealed trace edema. Laboratory Data: Diagnostic data was normal except for a TSH of 0.245. Impression And Plan: Atypical shortness of breath and chest pain. Echocardiogram is pending. The p atpuneet wants to go to the [facility] later as an outpatient for other workup. I agree with that. I do not think we are dealing with an acute coronary syndrome. His EKG and chest x-ray are unremarkab le. I would continue his present regimen. I think the most likely source of his pain is gastroesoph ageal in nature. I would like to see what the echo shows just because of his history of cardiomyopat hy. No change in medical therapy. He can go home whenever it is okay with Dr. Garcia. YADIRA/KAREEM Voice ID: [id number] Report ID: [id number]
[2021-07-28 08:37] VITALS: BP 107/61; TEMP 97.1
[2021-07-28] MEDS ORDERED: FUROSEMIDE 20 MG TABLET PO SCH (09:00)
[2021-07-28] MEDS ORDERED: FINASTERIDE 5 MG TAB PO SCH (09:00)
[2021-07-28] MEDS ORDERED: ENOXAPARIN 40 MG/0.4 ML SQ SCH (09:00)
[2021-07-28] MEDS ORDERED: LACTULOSE 20 GM/30 ML UCUP PO SCH (09:00)
[2021-07-28] MEDS ORDERED: ASPIRIN EC 81 MG TAB PO SCH (09:00)
[2021-07-28] MEDS ORDERED: SPIRONOLACTONE 25 MG TABLET PO SCH (09:00)
[2021-07-28] MEDS ORDERED: PNEUMOCOCCAL VACCINE 0.5 ML IMVAC ONE (09:00)
[2021-07-28] MEDS ORDERED: INFLUENZA VACCINE (for 6+ mo) 0.5 ML DOSE IMVAC ONE (09:27)
--- NOTE | 2021-07-28 10:59 | EKG ---
Test Date: 2021-07-27 Test Time: 15:11:00 Chief Of Staff: MI MEASUREMENT RESULTS: Intervals: Rate: 78 MT: 158 QRSD: 82 QT: 374 QTc: 426 [place]: P: 30 MT: 158 QRS: 64 T: 34 INTERPRETIVE STATEMENTS: Normal sinus rhythm Possible Anterior infarct, age undetermined Abnormal ECG Compared to ECG 05/25/2021 12:36:19 Myocardial infarct finding now present Sinus bradycardia no longer present Electronically Signed On 07-28-21 10:56:56 CDT by Fritz Stuart
[2021-07-28] MEDS ORDERED: ATORVASTATIN 10 MG TAB PO SCH (21:00)
[2021-07-28] MEDS ORDERED: ZOLPIDEM TARTRATE 5 MG TABLET PO SCH (21:00)
[2021-07-29] MEDS ORDERED: LEVOTHYROXINE SOD 0.025 MG TAB PO SCH (06:30)
[2021-07-29] MEDS ORDERED: PANTOPRAZOLE 40MG TABLET PO SCH (06:30)
== END 2021-07-28 09:45 | disposition home or self-care (01) ==
LOC: ER 15:03 → INTOOBSV 19:21 → ERHOLD 19:21 → 4TH 22:50
PROVIDERS: ADMIT Family Medicine; ATTEND Family Medicine
DX: R07.89 Other chest pain (principal); R06.02 Shortness of breath; B18.2 Chronic viral hepatitis C; K74.60 Unspecified cirrhosis of liver; I85.10 Secondary esophageal varices without bleeding; D69.6 Thrombocytopenia, unspecified; I10 Essential (primary) hypertension; E78.5 Hyperlipidemia, unspecified; E03.9 Hypothyroidism, unspecified; K21.9 Gastro-esophageal reflux disease without esophagitis; I25.10 Atherosclerotic heart disease of native coronary artery without angina pectoris; I42.9 Cardiomyopathy, unspecified; N40.0 Benign prostatic hyperplasia without lower urinary tract symptoms; M54.9 Dorsalgia, unspecified; G89.29 Other chronic pain; F03.90 Unspecified dementia, unspecified severity, without behavioral disturbance, psychotic disturbance, mood disturbance, and anxiety; Z23 Encounter for immunization; Z20.822 Contact with and (suspected) exposure to COVID-19; Z79.82 Long term (current) use of aspirin; Z88.8 Allergy status to other drugs, medicaments and biological substances; Z90.49 Acquired absence of other specified parts of digestive tract; Z89.511 Acquired absence of right leg below knee; Z86.010 Personal history of colon polyps; Z98.52 Vasectomy status; Z80.9 Family history of malignant neoplasm, unspecified
CPT/HCPCS: 93005; 85025 ×2; 80048; 36415; 83735; 85610; 80061; 80076; 84443; 84484 ×3; 84439; 80053; 83880; 71045; 90471; 96375; 96374; 99285; U0003; Q2035; J1650; J2405

== ENCOUNTER 2021-08-12 10:12 | Day surgery (SDC) | payer OTHER ==
[2021-08-12 11:09] VITALS: BMI 30.8
[2021-08-12] MEDS ORDERED: HYDROCODONE/APAP 7.5/325 MG TAB ONE (13:34)
[2021-08-12 14:26] VITALS: BP 145/63; TEMP 97.7; O2SAT 93
--- NOTE | 2021-08-12 19:18 | RAD REPORT ---
EXAM DESCRIPTION: RAD - Lumbar Puncture For Dx - 08/12/2021 12:27 pm CLINICAL HISTORY: Dementia COMPARISON: None. TECHNIQUE: The procedure, risks and alternatives to the procedure were discussed with the patient in detail. After answering all questions, both oral and written consent were obtained. Time-out procedu re was performed. The patient was placed in an oblique prone position on the fluoroscopic table. The skin of the lower back was prepped and draped in the usual sterile fashion. After anesthetizing the skin and deeper sof t tissues with 1% lidocaine, a 22 gauge needle was advanced into the thecal sac at the L1-2 level. At the conclusion of the procedure the needle was withdrawn and a sterile bandage placed over the pun cture site. The patient tolerated the procedure well without immediate complications. Post-procedure care and precaution instructions were discussed with the patient before the LP procedure. IMPRESSION: Successful fluoroscopic guided lumbar puncture. All obtained fluid was sent to the lab f or studies requested by the referring physician.
== END 2021-08-12 14:30 | disposition home or self-care (01) ==
LOC: DS 10:12 → EDSTATUS 11:00 → DS 14:30
PROVIDERS: ATTEND Psychiatry & Neurology Neurology with Special Qualifications in Child Neurology
PROC: 009U3ZX Drainage of Spinal Canal, Percutaneous Approach, Diagnostic (ICD-10-PCS; principal; 2021-08-12)
DX: F03.90 Unspecified dementia, unspecified severity, without behavioral disturbance, psychotic disturbance, mood disturbance, and anxiety (principal)
CPT/HCPCS: 36415; 77003; 85730

== ENCOUNTER 2021-09-09 14:22 | Emergency (ER) | payer OTHER ==
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
--- NOTE | 2021-09-09 16:56 | ER ---
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 Coronavirus screen: At this time, the client does not indicate any symptoms associated with coronavirus-19. Ebola Screen: No symptoms or risks identified at this time. Initial Sepsis Screen: Does the patient meet any 2 criteria? No. Patient's initial sepsis screen is negative. Does the patient have a suspected source of infection? No. Patient's initial sepsis screen is negative. Risk Assessment: Do you want to hurt yourself or someone else? Patient reports no desire to harm self or others. Onset of symptoms was September 09, 2021. 14:53 Method Of Arrival: Ambulatory ld1 14:53 Acuity: [place] 4 ld1 Triage Assessment: 14:55 General: Appears in no apparent distress. comfortable, Behavior is calm, cooperative, ld1 appropriate for age. Pain: Complains of pain in left leg Pain does not radiate. Pain currently is 7 out of 10 on a pain scale. at worst was 10 out of 10 on a pain scale. Quality of pain is described as throbbing, Pain began suddenly, Is continuous. EENT: No signs and/or symptoms were reported regarding the EENT system. Neuro: Level of Consciousness is awake, alert, obeys commands, Oriented to person, place, time, situation, Appropriate for age. Cardiovascular: Capillary refill < 3 seconds Patient's skin is warm and dry. Respiratory: Airway is patent Respiratory effort is even, unlabored, Respiratory pattern is regular, symmetrical. GI: Abdomen is round non-distended. : No signs and/or symptoms were reported regarding the genitourinary system. Derm: No signs and/or symptoms reported regarding the dermatologic system. Musculoskeletal: Reports pain in left leg. Historical: - Allergies: 14:55 Lisinopril; ld1 14:55 NSAIDS; ld1 14:55 Propranolol; ld1 - Home Meds: 14:55 atorvastatin 80 mg Oral tab 1 tab once daily [Active]; bupropion HCl 150 mg Oral TbER 1 ld1 tab once daily [Active]; ibuprofen 600 mg Oral tab 1 tab twice a day [Active]; lactulose 10 gram/15 mL Oral soln 15 mL 3 times per day [Active]; Lasix 20 mg Oral tab 1 tab once daily [Active]; levothyroxine 175 mcg tab 1 tab once daily [Active]; pantoprazole 40 mg Oral TbEC 1 tab once daily [Active]; tamsulosin 0.4 mg Oral cp24 1 cap once daily [Active]; trazodone 100 mg Oral tab 1 tab nightly [Active]; Vitamin B-12 1,000 mcg Oral tab daily [Active]; - PMHx: 14:55 colon polyps removed; Anemia; cardiomyopathy; Cirrhosis; CAD; Hepatitis; Dementia; ld1 hepititis C-gone now; Hypertension; Hypothyroidism; varacies; - Immunization history:: Adult Immunizations up to date, Client reports receiving the 2nd dose of the Covid vaccine. - Social history:: Smoking status: Patient reports the use of cigarette tobacco products, smokes one-half pack cigarettes per day, Patient/guardian denies using alcohol, street drugs. Screenin:46 Abuse screen: Denies threats or abuse. Nutritional screening: No deficits noted. ll1 Tuberculosis screening: No symptoms or risk factors identified. Fall Risk Ambulatory Aid- Crutches/Cane/Walker (15 pts). Gait- Impaired (20 pts.). Total Carey Fall Scale indicates Low Risk Score (25-44 pts). Fall prevention measures have been instituted. Side Rails Up X 2 Frequent Obs/Assesments occuring As available Patient and Family Educated on Fall Prevention Program and strategies. Assessment: 16:45 Reassessment: No changes from previously documented assessment. Patient and/or family ll1 updated on plan of care and expected duration. Pain level reassessed. Patient is alert, oriented x 3, equal unlabored respirations, skin warm/dry/pink. 17:01 Reassessment: No changes from previously documented assessment. Patient and/or family ll1 updated on plan of care and expected duration. Pain level reassessed. Patient is alert, oriented x 3, equal unlabored respirations, skin warm/dry/pink. Vital Signs: 14:53 BP 112 / 86; Pulse 77; Resp 18; Temp 98.3(O); Pulse Ox 96% on R/A; Weight 97.52 kg; ld1 Height 5 ft. 10 in. (177.80 cm); Pain 7/10; 17:00 BP 125 / 83; Pulse 62; Resp 18; ll1 14:53 Body Mass Index 30.85 (97.52 kg, 177.80 cm) ld1 ED Course: 14:23 Patient arrived in ED. mr 14:23 Jemma Young MD is Private Physician. mr 14:55 Triage completed. ld1 14:55 Arm band placed on left wrist. ld1 16:44 [facility]. jr8 16:44 Daniel Cooper MD is Attending Physician. jr8 16:45 Brooke Birmingham, GHASSAN is Primary Nurse. ll1 16:45 Patient placed in an exam room, on a stretcher. ll1 16:46 Patient has correct armband on for positive identification. Bed in low position. Call ll1 light in reach. Side rails up X 1. Cardiac monitoring not applicable on this patient. 16:55 Jemma Young MD is Referral Physician. jr8 17:01 No provider procedures requiring assistance completed. Patient did not have IV access ll1 during this emergency room visit. Administered Medications: No medications were administered Outcome: 16:55 Discharge ordered by . jr8 17:01 Discharged to home ambulatory. ll1 17:01 Condition: stable 17:01 Discharge instructions given to patient, Instructed on discharge instructions, follow up and referral plans. medication usage, Demonstrated understanding of instructions, follow-up care, medications, Prescriptions given X 1. 17:01 Patient left the ED. ll1 Signatures: Amanda Hall mr Rico Spencer PA PA jr8 Brooke Birmingham RN RN ll1 Fiona Del Valle RN RN ld1
--- NOTE | 2021-09-09 16:56 | EDPHYS ---
Physician Documentation [facility] Name: Papito Barry Age: 66 yrs Sex: Male : 1955 Arrival Date: 09/09/2021 Time: 14:23 Bed 12 Private MD: Jemma Young ED Physician Daniel Cooper Historical: - Allergies: 09/09 14:55 Lisinopril; ld1 14:55 NSAIDS; ld1 14:55 Propranolol; ld1 - Home Meds: 14:55 atorvastatin 80 mg Oral tab 1 tab once daily [Active]; bupropion HCl 150 mg Oral TbER 1 ld1 tab once daily [Active]; ibuprofen 600 mg Oral tab 1 tab twice a day [Active]; lactulose 10 gram/15 mL Oral soln 15 mL 3 times per day [Active]; Lasix 20 mg Oral tab 1 tab once daily [Active]; levothyroxine 175 mcg tab 1 tab once daily [Active]; pantoprazole 40 mg Oral TbEC 1 tab once daily [Active]; tamsulosin 0.4 mg Oral cp24 1 cap once daily [Active]; trazodone 100 mg Oral tab 1 tab nightly [Active]; Vitamin B-12 1,000 mcg Oral tab daily [Active]; - PMHx: 14:55 colon polyps removed; Anemia; cardiomyopathy; Cirrhosis; CAD; Hepatitis; Dementia; ld1 hepititis C-gone now; Hypertension; Hypothyroidism; varacies; - Immunization history:: Adult Immunizations up to date, Client reports receiving the 2nd dose of the Covid vaccine. - Social history:: Smoking status: Patient reports the use of cigarette tobacco products, smokes one-half pack cigarettes per day, Patient/guardian denies using alcohol, street drugs. Vital Signs: 14:53 BP 112 / 86; Pulse 77; Resp 18; Temp 98.3(O); Pulse Ox 96% on R/A; Weight 97.52 kg; ld1 Height 5 ft. 10 in. (177.80 cm); Pain 7/10; 17:00 BP 125 / 83; Pulse 62; Resp 18; ll1 14:53 Body Mass Index 30.85 (97.52 kg, 177.80 cm) ld1 MDM: 16:44 Patient medically screened. jr8 16:53 Data reviewed: vital signs, nurses notes, and as a result, I will discharge patient. jr8 Data interpreted: Pulse oximetry: on room air is 96 %. Interpretation: normal. Counseling: I had a detailed discussion with the patient and/or guardian regarding: the historical points, exam findings, and any diagnostic results supporting the discharge/admit diagnosis, the need for outpatient follow up, a family practitioner, to return to the emergency department if symptoms worsen or persist or if there are any questions or concerns that arise at home. 16:54 ED course: Discussed with patient that there is no circumferential swelling, no jr8 erythema, no signs of infection or cellulitis. His pulses are intact along with sensation. Most likely since this has been an ongoing problem status post his fasciotomy from his compartment syndrome that this is most likely neuropathic pain. We can try him on gabapentin and we need to follow-up for further evaluation. Patient good with this at this time.. Administered Medications: No medications were administered Disposition: 17:35 Co-signature as Attending Physician, Daniel Cooper MD I agree with the assessment and rn plan of care. Attestation: The patient's history, exam findings, diagnostics, and a summary of any interventions or procedures was reviewed in detail with Rico SANTILLAN. Disposition Summary: 09/09/21 16:55 Discharge Ordered Location: Home jr8 Problem: new jr8 Symptoms: have improved jr8 Condition: Stable jr8 Diagnosis - Mononeuropathy, unspecified jr8 Followup: jr8 - With: Jemma Young MD - When: 5 - 6 days - Reason: Recheck today's complaints, Continuance of care, Re-evaluation by your physician Discharge Instructions: - Discharge Summary Sheet jr8 - Neuropathic Pain jr8 Forms: - Medication Reconciliation Form jr8 - Thank You Letter jr8 - Antibiotic Education jr8 - Prescription Opioid Use jr8 Prescriptions: - gabapentin 300 mg Oral capsule - take 1 capsule by ORAL route every 12 hours; 60 capsule; Refills: 0, Product jr8 Selection Permitted Signatures: Daniel Cooper MD MD rn Roszak, Josh, PA PA jr8 Fiona Del Valle RN RN ld1
[2021-09-09 17:07] VITALS: TEMP 98.3; O2SAT 96
[2021-09-09 17:08] VITALS: BP 125/83
== END 2021-09-09 17:01 | disposition home or self-care (01) ==
LOC: ER 14:22
DX: G58.9 Mononeuropathy, unspecified (principal); I10 Essential (primary) hypertension; E03.9 Hypothyroidism, unspecified; F03.90 Unspecified dementia, unspecified severity, without behavioral disturbance, psychotic disturbance, mood disturbance, and anxiety; F17.210 Nicotine dependence, cigarettes, uncomplicated; Z88.6 Allergy status to analgesic agent; Z88.8 Allergy status to other drugs, medicaments and biological substances
CPT/HCPCS: 99282

== ENCOUNTER 2023-03-24 11:24 | Emergency (ER) | payer OTHER ==
--- OUTSIDE RECORDS SUMMARY | 2023-03-24 11:31 | XMS REPORT | Continuity of Care Document ---
:1955 Author Organization [facility] t Address [address] [place]. [address] [place] [address] Care Team Providers Name Role Phone UNKNOWN, REFFERING Primary Care Physician Unavailable Nancy Reed Attending Clinician Unavailable Jemma Young Attending Clinician Unavailable KATHLEEN BRAVO Attending Clinician Unavailable Guevara Deleon Attending Clinician Unavailable Owen Rodriguez Attending Clinician Unavailable HENRY GONZALEZ Attending Clinician Unavailable Henry Gonzalez MD Attending Clinician Therapy, Clc Bls Physical Attending Clinician Unavailable Vtc-Lab Attending Clinician Unavailable Perico Alaniz MD Attending Clinician PERICO ALANIZ Attending Clinician Unavailable PERICO ALANIZ Attending Clinician Unavailable Geneva Hanson MD Attending Clinician GENEVA HANSON Attending Clinician Unavailable Doctor Unassigned, [place] Attending Clinician Unavailable Nurse, Adc Pob Immunization Attending Clinician Unavailable Walter Guillory DO Attending Clinician WALTER GUILLORY Attending Clinician Unavailable Radha Powers RN Attending Clinician Unavailable Anitha William Attending Clinician Lawson Barnes MD Attending Clinician Herbie De Leon MD Attending Clinician HERBIE DE LEON Attending Clinician Unavailable ANITHA HOGUE Attending Clinician Unavailable TYRONE HALL Attending Clinician Unavailable Patrick PAC, K Veronika Attending Clinician KAMALA MURPHYHCharissa Attending Clinician Unavailable Idalia Mcbride RN Attending Clinician Zachariah Alvarado DO Attending Clinician Lisandra Velasco MD Attending Clinician TALHA JRODAN Attending Clinician Unavailable Bharat Anderson Attending Clinician BHARAT MCBRIDE Attending Clinician Unavailable Physician, No Primary or Family Admitting Clinician Unavaila ble Referred, Self Admitting Clinician Unavailable Owen Rodriguez Admitting Clinician Unavailable Lawson Barnes MD Admitting Clinician LAWSON BARNES Admitting Clinician Unavailable ANITHA HOGUE Admitting Clinician Unavailable Lisandra Velasco MD Admitting Clinician BHARAT MCBRIDE Admitting Clinician Unavailable Payers Payer Name Policy Type Policy Number Effective Date Expiration Date Carito whitehead [employer] [place] [id number] 2019 00:00:00 [facility] [id number] 2020 ADMINISTRATION 00:00:00 [facility] [id number] 2020 00:00:00 [address] [address] [id number] 2019 Common Medicare Replace 00:00:00 [facility] [employer] C1 [id number] 2019 Common Medicare Replace 00:00:00 [facility] [employer] C1 [id number] 2019 Common Medicare Replace 00:00:00 [facility] [employer] C1 [id number] 2019 Common Medicare Replace 00:00:00 [facility] [employer] C1 [id number] 2019 Common Medicare Replace 00:00:00 [facility] [employer] C1 [id number] 2019 Common Medicare Replace 00:00:00 [facility] [employer] C1 [id number] 2019 Common Medicare Replace 00:00:00 [facility] [employer] C1 [id number] 2019 Common Medicare Replace 00:00:00 [facility] [employer] C1 [id number] 2019 Common Medicare Replace 00:00:00 [facility] [employer] C1 [id number] 2019 Common Medicare Replace 00:00:00 [facility] [employer] C1 [id number] 2019 Common Medicare Replace 00:00:00 [facility] [employer] C1 [id number] 2019 Common Medicare Replace 00:00:00 [facility] Problems Condition Condition Condition Status Onset Resolution Last Treating Co mments Source Name Details Category Date Date Treatment Clinician Date AMS AMS Disease Active Univers (altered (altered 9-30 ity of mental mental 00:00: [place] status) status) 00 Medical Branch Obesity Obesity Disease Active Univers (BMI (BMI 9-23 ity of 30-39.9) 30-39.9) 00:00: [place] 00 Medical Branch Liver Liver Disease Active 2014-10 Univers disease, disease, 1-24 ity of chronic, chronic, 00:00: [place] with with 00 Medical cirrhosis cirrhosis Bran ch Cardiomyop Cardiomyop Disease Active 2014-10 U nivers athy athy 1-24 ity of 00:00: [address] Branch Varices of Varices of Disease Active 2014-10 U nivers esophagus esophagus 11-09 [place] of determined [place] Medical endoscopy endoscopy Bran ch Atypical Atypical Disease Active 2014-10 Unive rs chest pain chest pain 11-08 it y of 00:00: [address] Branch [id number] Cerebrovas Problem Active Co mmon cular Spirit accident - [facility] (CVA), [facility] [id number] 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 [id number] Acquired Problem Active Comm on hypothyroi Spirit dism [facility] Depression Depression Problem Active C ommon [facility] Degenerati Lumbar Problem Active Commo n on of degenerati Spirit lumbar ve disc - [facility] interverte disease [facility] Anxiety Anxiety Problem Active Common [facility] Diverticul [facility]icul [facility] [id number] Cirrhosis Problem Active Comm on of liver Spirit without - [facility] ascites, [facility] hepatic Medical cirrhosis Center type Dementia Dementia Problem Active Commo n with with Spirit behavioral behavioral - [facility] disturbanc disturbanc [facility] type Memory Memory Problem Active Common problem problem [facility] Hepatitis Hepatitis Problem Active Com tue [facility] Mixed Mixed Problem Active Common hyperlipid hyperlipid Sp abby emia emia - [facility] [id number] Chronic Problem Active Comm on 03 viral Spirit hepatitis - [facility] C [facility] Gastroesop Reflux Problem Active Commo n hageal Spirit reflux - [facility] disease [facility] High High Problem Active Common cholestero cholestero Sp abby l l - [facility] Swelling Swelling Problem Active Commo n Spirit [facility] Disorder Circulatio Problem Active Com mon of n problem Spirit cardiovasc - [facility] ular [facility] Cardiac Abnormal Problem Active Common arrhythmia heart [facility] rhythm [facility] Esophageal Esophageal Problem Active C ommon varices varices [facility] without without [facility] bleeding bleeding [facility] [id number] Prediabete Problem Active Co mmon s [facility] [id number] Right hand Problem Active C ommon 75[address] pain [facility] [id number] Benign Problem Active Commo n 101 prostatic [facility] hyperplasi [facility] a with [facility] urinary [facility] tract Center symptoms [id number] Essential Problem Active Comm on hypertensi [facility] on [facility] Tension-ty Acute non Problem Active Co mmon pe intractabl [facility] headache e [facility] tension-ty [facility] headache [facility] Allergic Allergic Problem Active Commo n rhinitis rhinitis [facility] Irritable Irritable Problem Active Com mon bowel bowel [facility] [id number] Needs flu Problem Active Com mon shot [facility] [id number] Hepatic Problem Active Common encephalop [facility] athy [facility] [id number] Seasonal Problem Active Comm on allergies [facility] [id number] Dyskinesia Problem Active Comm on [facility] [id number] Neuropathy Problem Active C ommon [address] of left [facility] foot [facility] Allergies, Adverse Reactions, Alerts Allergy Allergy Status Severity Reaction(s) Onset Inactive Treating Comm ents Source Name Type Date Date Clinician Lisinopr Propensi Active Hypotensi Met hodi il ty to 3-20 on, blood st adverse 00:00: pressure [facility]ospita reaction 00 drops too l s to quickly drug lisinopr DA Active RI 2017-10 [facility] il 2-22 Clear 00:00: [place] 00 [facility] lisinopr DA Active RI SYNCOPE 2017-10 [facility] il 2-22 Clear 00:00: [place] 00 [facility] LISINOPR DRUG Active Unknown-Cmnt 2014-10 Un john [place] INGREDI 11-08 ity of 00:00: [place] 00 [facility] Lisinopr Propensi Active Unknown - 2014-10 Uni vers il ty to See comments 11-08 ity of adverse 00:00: [place] reaction [address] [place] [address] Branch lisinopr lisinopr Active pass out Comm on il Spirit - [facility] Social History Social Habit Start Date Stop Date Quantity Comments Source History of Tobacco Common Spirit - Use [facility] Gender identity [facility] Alcohol intake 2021-11-24 2021-11-24 Ex-drinker University 00:00:00 00:00:00 (finding) [facility] Tobacco use and 2021-05-18 2021-05-18 Never used Universit y of exposure 00:00:00 00:00:00 [facility] Tobacco Comment 2021-05-18 2021-05-18 patient states Unive rsity of 00:00:00 00:00:00 that he quit a [facility] couple of Branch months ago History of Social 2019-01-03 2019-01-[address] function 00:00:00 00:00:00 [facility] Sex [birth year] [facility] Smoking Status Start Date Stop Date Source Tobacco smoking [facility] consumption unknown Former Smoker 2021-08-05 00:00:00 2021-08-05 [facility] 00[facility]00 [facility] Ce nter Current Smoker 2021-02-17 00:00:00 Common Spiri t - [facility] Ce nter Medications Ordered Filled Start Stop Current Ordering Indication Dosage Frequency Signature Comments Components Source Medication Medication Date Date Medication? Clinician (SIG) Name Name gabapentin 2021- No [id number] 300mg Take 1 Univers 300 mg 3- capsule by ity of capsule 00:00: 04:59 mouth 3 [place] 00 :00 (three) Medical times Branch daily for 90 days. gabapentin No [id number] 300mg Take 1 Univers 300 mg 3- capsule by ity of capsule 00:00: 04:59 mouth 3 [place] 00 :00 (three) Medical times Branch daily for 90 days. gabapentin 2021- No [id number] 300mg Take 1 Univers 300 mg 3-30 03- capsule by ity of capsule 00:00: 04:59 mouth 3 [place] 00 :00 (three) Medical times Branch daily for 90 days. traMADoL 2022-0 Yes [id number] 50mg Take 1 Univers (ULTRAM) 50 1-31 tablet by ity of mg tablet 00:00: mouth [place] 00 every 6 Medical (six) Branch hours as needed for Pain (scale 7-10). Indication s: acute pain methocarbam 2021-0 Yes [id number] 500mg Take 1 Univers oL 1-31 tablet by ity of (ROBAXIN) 00:00: mouth [place] 500 mg 00 every 6 Medical tablet (six) Branch hours as needed for Pain (scale 7-10) (MUSCLE SPASM). lidocaine 5 2021-0 Yes [id number] 1{patch Apply 1 Univers % (700 1-31 } Patch to ity of mg/patch) 00:00: area(s) [place] patch 00 daily. Medical Branch traMADoL 2021-0 Yes [id number] 50mg Take 1 Univers (ULTRAM) 50 1-31 tablet by ity of mg tablet 00:00: mouth [place] 00 every 6 Medical (six) Branch hours as needed for Pain (scale 7-10). Indication s: acute pain methocarbam 2021-0 Yes [id number] 500mg Take 1 Univers oL 1-31 tablet by ity of (ROBAXIN) 00:00: mouth [place] 500 mg 00 every 6 Medical tablet (six) Branch hours as needed for Pain (scale 7-10) (MUSCLE SPASM). lidocaine 5 2021-0 Yes [id number] 1{patch Apply 1 Univers % (700 1-31 } Patch to ity of mg/patch) 00:00: area(s) [place] patch 00 daily. Medical Branch traMADoL 2021-0 Yes [id number] 50mg Take 1 Univers (ULTRAM) 50 1-31 tablet by ity of mg tablet 00:00: mouth [place] 00 every 6 Medical (six) Branch hours as needed for Pain (scale 7-10). Indication s: acute pain methocarbam 2021-0 Yes [id number] 500mg Take 1 Univers oL 1-31 tablet by ity of (ROBAXIN) 00:00: mouth [place] 500 mg 00 every 6 Medical tablet (six) Branch hours as needed for Pain (scale 7-10) (MUSCLE SPASM). lidocaine 5 2021-0 Yes [id number] 1{patch Apply 1 Univers % (700 1-31 } Patch to ity of mg/patch) 00:00: area(s) [place] patch 00 daily. Medical Branch Cholecalcif 2020-10 Yes TAKE ONE Un john kalpana, 2-06 TABLET BY ity of Vitamin D3, 00:00: MOUTH [place] 50 mcg 00 DAILY A Medical (2,000 VITAMIN Branch unit) SUPPLEMENT tablet Cholecalcif 2020-10 Yes TAKE ONE Un john kalpana, 2-06 TABLET BY ity of Vitamin D3, 00:00: MOUTH [place] 50 mcg 00 DAILY A Medical (2,000 VITAMIN Branch unit) SUPPLEMENT tablet Cholecalcif 2020-10 Yes TAKE ONE Un john kal[place]ana, 2-06 TABLET BY ity of Vitamin D3, 00:00: MOUTH [place] 50 mcg 00 DAILY A Medical (2,000 VITAMIN Branch unit) SUPPLEMENT tablet atorvastati 2020-10 Yes Univer s n 80 mg 2-01 ity of tablet 00:00: [place] 00 Medical Branch atorvastati 2020-10 Yes Univer s n 80 mg 2-01 ity of tablet 00:00: [place] 00 Medical Branch atorvastati 2020-10 Yes Univer s n 80 mg 2-01 ity of tablet 00:00: [place] 00 Medical Branch finasteride 2020-10 Yes TAKE ONE Un john 5 mg tablet 0-29 TABLET BY ity of 00:00: MOUTH [place] 00 DAILY FOR Medical PROSTATE. Branch *DO NOT CRUSH* finasteride 2020-10 Yes TAKE ONE Un john 5 mg tablet 0-29 TABLET BY ity of 00:00: MOUTH [place] 00 DAILY FOR Medical PROSTATE. Branch *DO NOT CRUSH* finasteride 2020-10 Yes TAKE ONE Un john 5 mg tablet 0-29 TABLET BY ity of 00:00: MOUTH [place] 00 DAILY FOR Medical PROSTATE. Branch *DO NOT CRUSH* Thiamine 50 Thiamine 50 2020-10- No 2{capsu QD Thiamine MG MG 0-15 10-10 les} 50 MG 00:00: 00:00 00 :00 Thiamine 50 Thiamine 50 2020-10- No 2{capsu QD Thiamine MG MG 0-15 10-10 les} 50 MG 00:00: 00:00 00 :00 Thiamine 50 Thiamine 50 2020-10- No 2{capsu QD Thiamine MG MG 0-15 10-10 les} 50 MG 00:00: 00:00 00 :00 Levothyroxi Yes 125ug Take 125 U nivers ne 9-30 mcg by ity of (TIROSINT) 17:44: mouth [place] 125 mcg 41 daily. Medical capsule Branch pantoprazol 0 Yes 40mg Take 40 mg Univers e sodium 9-30 by mouth ity of (PROTONIX 17:44: daily. [place] ORAL) 41 Medical Branch propranoloL 0 Yes 10mg Take 10 mg Univers 10 mg 9-30 by mouth 2 ity of tablet 17:44: (two) [place] 41 times Medical daily. Branch traZODone 0 Yes 200mg Take 200 Uni vers 100 mg 9-30 mg by ity of tablet 17:44: mouth at [place] 41 bedtime. Medical Branch SERTraline 0 Yes 100mg Take 100 Un john 100 [...] daily. Medical Branch rifaximin Yes Take by Unive rs (XIFAXAN 9-30 mouth. ity of ORAL) 17:44: [place] 41 Medical Branch furosemide Yes 20mg Take 20 mg U nivers 20 mg 9-30 by mouth. ity of tablet 17:44: [place] 41 Medical Branch Levothyroxi Yes 125ug Take 125 U nivers ne 9-30 mcg by ity of (TIROSINT) 17:44: mouth [place] 125 mcg 41 daily. Medical capsule Branch pantoprazol Yes 40mg Take 40 mg Univers e sodium 9-30 by mouth ity of (PROTONIX 17:44: daily. [place] ORAL) 41 Medical Branch propranoloL 0 Yes 10mg Take 10 mg Univers 10 mg 9-30 by mouth 2 ity of tablet 17:44: (two) [place] 41 times Medical daily. Branch traZODone 0 Yes 200mg Take 200 Uni vers 100 mg 9-30 mg by ity of tablet 17:44: mouth at [place] 41 bedtime. Medical Branch SERTraline Yes 100mg Take 100 Un john 100 mg 9-30 mg by ity of tablet 17:44: mouth [place] 41 daily. Medical Branch vitamin 0 Yes 1000ug Take 1,000 Un john B-12 (B-12 9-30 mcg by ity of DOTS) 500 17:44: mouth [place] mcg tablet 41 daily. Medical Branch buPROPion Yes 300mg Take 300 Uni vers XL 300 mg 9-30 mg by ity of 24 hr 17:44: mouth [place] tablet 41 daily. Medical Branch rifaximin Yes Take by Unive rs (XIFAXAN 9-30 mouth. ity of ORAL) 17:44: [place] 41 Medical Branch furosemide 0 Yes 20mg Take 20 mg U nivers 20 mg 9-30 by mouth. ity of tablet 17:44: [place] 41 Medical Branch Levothyroxi Yes 125ug Take 125 U nivers ne 9-30 mcg by ity of (TIROSINT) 17:44: mouth [place] 125 mcg 41 daily. Medical capsule Branch pantoprazol Yes 40mg Take 40 mg Univers e sodium 9-30 by mouth ity of (PROTONIX 17:44: daily. [place] ORAL) 41 Medical Branch propranoloL 0 Yes 10mg Take 10 mg Univers 10 mg 9-30 by mouth 2 ity of tablet 17:44: (two) [place] 41 times Medical daily. Branch traZODone Yes 200mg Take 200 Uni vers 100 mg 9-30 mg by ity of tablet 17:44: mouth at [place] 41 bedtime. Medical Branch SERTraline Yes 100mg Take 100 Un john 100 mg 9-30 mg by ity of tablet 17:44: mouth [place] 41 daily. Medical Branch vitamin 2020-0 Yes 1000ug Take 1,000 Un john B-12 (B-12 9-30 mcg by ity of DOTS) 500 17:44: mouth [place] mcg tablet 41 daily. Medical Branch buPROPion Yes 300mg Take 300 Uni vers XL 300 mg 9-30 mg by ity of 24 hr 17:44: mouth [place] tablet 41 daily. Medical Branch rifaximin 0 Yes Take by Unive rs (XIFAXAN 9-30 mouth. ity of ORAL) 17:44: [place] [address] Medical Branch furosemide 0 Yes 20mg Take 20 mg U nivers 20 mg 9-30 by mouth. ity of tablet 17:44: [address] Branch Levothyroxi Levothyroxi No QD Levothyrox ne Sodium ne Sodium 7-13 ine Sodium 200 MCG 200 MCG 00:00: 200 MCG 00 Levothyroxi Levothyroxi No QD Levothyrox ne Sodium ne Sodium 7-13 ine Sodium 200 MCG 200 MCG 00:00: 200 MCG 00 Levothyroxi Levothyroxi No QD Levothyrox ne Sodium ne Sodium 7-13 ine Sodium 200 MCG 200 MCG 00:00: 200 MCG 00 fluticasone Yes INSTILL 1 U nivers propionate 6-23 SPRAY IN ity o f 50 00:00: EACH [place] mcg/actuati 00 NOSTRIL Medic al on nasal TWICE A Branch spray DAY NEEDED FOR ALLERGIES fluticasone Yes INSTILL 1 U nivers propionate 6-23 SPRAY IN ity o f 50 00:00: EACH [place] mcg/actuati 00 NOSTRIL Medic al on nasal TWICE A Branch spray DAY NEEDED FOR ALLERGIES fluticasone Yes INSTILL 1 U nivers propionate 6-23 SPRAY IN ity o f 50 00:00: EACH [place] mcg/actuati 00 NOSTRIL Medic al on nasal TWICE A Branch spray DAY NEEDED FOR ALLERGIES ondansetron 0 Yes [id number] 4mg Take 1 Univers (ZOFRAN 5-31 tablet by ity of ODT) 4 mg 00:00: mouth [place] disintegrat 00 every 8 Medic al ing tablet (eight) Branch hours as needed for Nausea and Vomiting (N/V). tamsulosin Yes [id number] .4mg Take 1 Univers 0.4 mg 24 5-31 capsule by ity of hr capsule 00:00: mouth at [place] as 00 bedtime. Medical Branch lidocaine 5 0 Yes [id number] Apply a Univers % (700 5-31 patch to ity of mg/patch) 00:00: [place] patch 00 of pain Medical for up to Branch 12 hours once a day then remove it and do not apply a new one until the next day. You may cut them smaller as needed. ondansetron 2020-0 Yes [id number] 4mg Take 1 Univers (ZOFRAN 5-31 tablet by ity of ODT) 4 mg 00:00: mouth [place] disintegrat 00 every 8 Medic al ing tablet (eight) Branch hours as needed for Nausea and Vomiting (N/V). tamsulosin 2020-0 Yes [id number] .4mg Take 1 Univers 0.4 mg 24 5-31 capsule by ity of hr capsule 00:00: mouth at [place] as 00 bedtime. Medical Branch lidocaine 5 2020-0 Yes [id number] Apply a Univers % (700 5-31 patch to ity of mg/patch) 00:00: [place] patch 00 of pain Medical for up to Branch 12 hours once a day then remove it and do not apply a new one until the next day. You may cut them smaller as needed. ondansetron 2020-0 Yes [id number] 4mg Take 1 Univers (ZOFRAN 5-31 tablet by ity of ODT) 4 mg 00:00: mouth [place] disintegrat 00 every 8 Medic al ing tablet (eight) Branch hours as needed for Nausea and Vomiting (N/V). tamsulosin 2020-0 Yes [id number] .4mg Take 1 Univers 0.4 mg 24 5-31 capsule by ity of hr capsule 00:00: mouth at [place] as 00 bedtime. Medical Branch lidocaine 5 2020-0 Yes [id number] Apply a Univers % (700 5-31 patch to ity of mg/patch) 00:00: [place] patch 00 of pain Medical for up to Branch 12 hours once a day then remove it and do not apply a new one until the next day. You may cut them smaller as needed. ibuprofen 2020-0 Yes [id number] 600mg Take 1 Univers 600 mg 4-01 [id number] tablet by ity of tablet 00:00: mouth [place] 00 every 6 Medical (six) Branch hours as needed for Pain (scale 4-6). ibuprofen 202-0 Yes [id number] 600mg Take 1 Univers 600 mg 4-01 [id number] tablet by ity of tablet 00:00: mouth [place] 00 every 6 Medical (six) Branch hours as needed for Pain (scale 4-6). ibuprofen Yes [id number] 600mg Take 1 Univers 600 mg 01-15 [id number] tablet by ity of tablet 00:00: mouth [place] 00 every 6 Medical (six) Branch hours as needed for Pain (scale 4-6). Gabapentin Gabapentin No 1{capsu TID Gabapentin 100 MG 100 MG 3-24 le} 100 MG 00:00: 00 Gabapentin Gabapentin No 1{capsu TID Gabapentin 100 MG 100 MG 3-24 le} 100 MG 00:00: 00 amLODIPine Yes TAKE ONE Uni vers 10 mg 1-05 TABLET BY ity of tablet 00:00: MOUTH [place] 00 DAILY FOR Medical HEART/BLOO Branch D PRESSURE amLODIPine Yes TAKE ONE Uni vers 10 mg 1-05 TABLET BY ity of tablet 00:00: MOUTH [place] 00 DAILY FOR Medical HEART/BLOO Branch D PRESSURE amLODIPine Yes TAKE ONE Uni vers 10 mg 1-05 TABLET BY ity of tablet 00:00: MOUTH [place] 00 DAILY FOR Medical HEART/BLOO Branch D PRESSURE cetirizine 2019-10 Yes TAKE ONE Uni vers 10 mg 2-21 TABLET BY ity of tablet 00:00: MOUTH [place] 00 DAILY FOR Medical ALLERGIES Branch cetirizine 2019-10 Yes TAKE ONE Uni vers 10 mg 2-21 TABLET BY ity of tablet 00:00: MOUTH [place] 00 DAILY FOR Medical ALLERGIES Branch cetirizine 2019-10 Yes TAKE ONE Uni vers 10 mg 2-21 TABLET BY ity of tablet 00:00: MOUTH [place] 00 DAILY FOR Medical ALLERGIES Branch Azithromyci Azithromyci 2019-0 2020- No Na Young 2 tablets Common n n 6-29 -04 on the Spirit 00:00: 00:00 first day, - [facility] 00 :[address] [facility] daily for Medical 4 days Center Cetirizine Cetirizine No 1{table QD Cetirizine HCl 10 MG HCl 10 MG 1-10 t} HCl 10 MG 00:00: 00 atorvastati Yes 80mg QD Take 80 mg Methodi n (LIPITOR) 3-[address] 80 MG 19:02: daily. Hospita tablet 24 l spironolact Yes 12.5mg QD Take 12.5 Methodi one 3-[address] (ALDACTONE) 18:50: mouth Hospi ta 25 MG 13 daily. l tablet traZODone 2018-0 Yes 100mg QD Take 100 Met hodi (DESYREL) 3-[address] 100 MG 18:50: mouth Hospita tablet 13 nightly as l needed for sleep. furosemide 2019-0 Yes 20mg QD Take 20 mg M ethodi (LASIX) 20 3-[address] mg tablet 18:50: daily. Hospit a 13 l pantoprazol 0 Yes 40mg QD Take 40 mg Methodi e 3-[address] (PROTONIX) 18:50: daily. Hospi ta 40 MG EC 13 l tablet lactulose 2018-0 Yes 20g Q.[id number] Take 20 g Methodi 20 gram/30 3-20 [id number] mouth [address] mL solution 18:50: [...] every l 175 mcg morning. tablet guaiFENesin 0 Yes 600mg Q.5D Take 600 M ethodi (MUCINEX) 3-[address] 600 mg 18:50: mouth 2 Hospita tablet 13 (two) l extended times a release day. 12hr tamsulosin 2018- Yes .4mg QD Take 0.4 Met hodi (FLOMAX) 3-[address] 0.4 mg 18:50: mouth Hospita capsule 13 nightly. l atorvastati 2018-0 Yes 80mg QD Take 80 mg Methodi n (LIPITOR) 3-[address] 80 MG 14:02: daily. Hospita tablet 24 l buPROPion 2018-0 Yes 150mg Q.5D Take 150 Met hodi SR 3-[address] (WELLBUTRIN 13:50: mouth 2 Hos venkata SR) 150 MG 13 (two) l 12 hr times a tablet day. levothyroxi 2018-0 Yes 175ug QD Take 175 M ethodi ne 3-[address] (SYNTHROID, 13:50: mouth Hospi ta LEVOXYL) 13 every l 175 mcg morning. tablet guaiFENesin 0 Yes 600mg Q.5D Take 600 M ethodi (MUCINEX) 3-[address] 600 mg 13:50: mouth 2 Hospita tablet 13 (two) l extended times a release day. 12hr tamsulosin 2018-0 Yes .4mg QD Take 0.4 Met hodi (FLOMAX) 3-[address] 0.4 mg 13:50: mouth Hospita capsule 13 nightly. l spironolact 2019-0 Yes 12.5mg QD Take 12.5 Methodi one 3-[address] (ALDACTONE) 13:50: mouth Hospi ta 25 MG 13 daily. l tablet traZODone 0 Yes 100mg QD Take 100 Met hodi (DESYREL) 3-[address] 100 MG 13:50: mouth Hospita tablet 13 nightly as l needed for sleep. furosemide 0 Yes 20mg QD Take 20 mg M ethodi (LASIX) 20 3-[address] mg tablet 13:50: daily. Hospit a 13 l pantoprazol 0 Yes 40mg QD Take 40 mg Methodi e 3-[address] (PROTONIX) 13:50: daily. Hospi ta 40 MG EC 13 l tablet lactulose 0 Yes 20g Q.[id number] Take 20 g Methodi 20 gram/30 3-[id number] mouth [address] mL solution 13:50: 3D (three) Hos venkata 13 times a l day. Zoloft 25 Zoloft 25 No 1{table QD Zoloft 25 MG MG t} MG Levothyroxi Levothyroxi No QD Levothyrox ne Sodium ne Sodium ine Sodium 175 MCG 175 MCG 175 MCG Flonase 50 Flonase 50 No 2{spray QD Flonase 50 MCG/ACT MCG/ACT _in_eac MCG/ACT h_nostr il} Trazodone Trazodone No 2{table QD Trazodone HCl 100 MG HCl 100 MG t_at_be HCl 100 MG dtime} Tamsulosin Tamsulosin No 1{capsu QD Tamsulosin HCl 0.4 MG HCl 0.4 MG le} HCl 0.4 MG Protonix 40 Protonix 40 No 1{table QD Protonix MG MG t} 40 MG BuPROPion BuPROPion No 1{table BID BuPROPion HCl ER HCl ER t_in_th HCl ER (Smoking (Smoking e_morni (Smoking Det) 150 MG Det) 150 MG ng} Det) 150 MG Cyanocobala Cyanocobala No 1{table QD Cyanocobal min 1000 min 1000 t} young 1000 MCG MCG MCG Clonazepam Clonazepam No 1{table QD Clonazepam 0.5 MG 0.5 MG t_at_be 0.5 MG dtime} Cetirizine Cetirizine No 1{table QD Cetirizine HCl 10 MG HCl 10 MG t} HCl 10 MG Spironolact Spironolact No 1{table Spironolac one 25 MG one 25 MG t} tone 25 MG Levothyroxi Levothyroxi No QD Levothyrox ne Sodium ne Sodium ine Sodium 175 MCG 175 MCG 175 MCG Levothyroxi Levothyroxi No QD Levothyrox ne Sodium ne Sodium ine Sodium 175 MCG 175 MCG 175 MCG Spironolact Spironolact No 1{table Spironolac one 25 MG one 25 MG t} tone 25 MG Levothyroxi Levothyroxi No QD Levothyrox ne Sodium ne Sodium ine Sodium 175 MCG 175 MCG 175 MCG Zoloft 25 Zoloft 25 No 1{table QD Zoloft 25 MG MG t} MG Trazodone Trazodone No 2{table QD Trazodone HCl 100 MG HCl 100 MG t_at_be HCl 100 MG dtime} BuPROPion BuPROPion No 1{table BID BuPROPion HCl ER HCl ER t_in_th HCl ER (Smoking (Smoking e_morni (Smoking Det) 150 MG Det) 150 MG ng} Det) 150 MG Protonix 40 Protonix 40 No 1{table QD Protonix MG MG t} 40 MG Cetirizine Cetirizine No 1{table QD Cetirizine HCl 10 MG HCl 10 MG t} HCl 10 MG BuPROPion BuPROPion No BuPROPion HCl ER (SR) HCl ER (SR) HCl ER 150 MG 150 MG (SR) 150 MG Clonazepam Clonazepam No 1{table QD Clonazepam 0.5 MG 0.5 MG t_at_be 0.5 MG dtime} Lipitor 80 Lipitor 80 No 1{table QD Lipitor 80 MG MG t} MG Tamsulosin Tamsulosin No 1{capsu QD Tamsulosin HCl 0.4 MG HCl 0.4 MG le} HCl 0.4 MG Flonase 50 Flonase 50 No 2{spray QD Flonase 50 MCG/ACT MCG/ACT _in_eac MCG/ACT h_nostr il} Cyanocobala Cyanocobala No 1{table QD Cyanocobal min 1000 min 1000 t} young 1000 MCG MCG MCG Clonazepam Clonazepam No 1{table QD Clonazepam 0.5 MG 0.5 MG t_at_be 0.5 MG dtime} Protonix 40 Protonix 40 No 1{table QD Protonix MG MG t} 40 MG Gabapentin Gabapentin No 1{capsu TID Gabapentin 300 MG 300 MG le} 300 MG BuPROPion BuPROPion No 1{table BID BuPROPion HCl ER HCl ER t_in_th HCl ER (Smoking (Smoking e_morni (Smoking Det) 150 MG Det) 150 MG ng} Det) 150 MG Spironolact Spironolact No 1{table Spironolac one 25 MG one 25 MG t} tone 25 MG Tamsulosin Tamsulosin No 1{capsu QD Tamsulosin HCl 0.4 MG HCl 0.4 MG le} HCl 0.4 MG Levothyroxi Levothyroxi No QD Levothyrox ne Sodium ne Sodium ine Sodium 175 MCG 175 MCG 175 MCG Flonase 50 Flonase 50 No 2{spray QD Flonase 50 MCG/ACT MCG/ACT _in_eac MCG/ACT h_nostr il} Wellbutrin Wellbutrin No 1{table QD Wellbutrin XL 300 MG XL 300 MG t_in_th XL 300 MG e_morni ng} Zoloft 25 Zoloft 25 No 1{table QD Zoloft 25 MG MG t} MG Cetirizine Cetirizine No 1{table QD Cetirizine HCl 10 MG HCl 10 MG t} HCl 10 MG Levothyroxi Levothyroxi No QD Levothyrox ne Sodium ne Sodium ine Sodium 175 MCG 175 MCG 175 MCG Ibuprofen Ibuprofen No QID Ibuprofen 600 MG 600 MG 600 MG BuPROPion BuPROPion No BuPROPion HCl ER (SR) HCl ER (SR) HCl ER 150 MG 150 MG (SR) 150 MG Cyanocobala Cyanocobala No 1{table QD Cyanocobal min 1000 min 1000 t} young 1000 MCG MCG MCG Propranolol Propranolol No 1{table QD Propranolo HCl 10 MG HCl 10 MG t} l HCl 10 MG Trazodone Trazodone No 2{table QD Trazodone HCl 100 MG HCl 100 MG t_at_be HCl 100 MG dtime} Lipitor 80 Lipitor 80 No 1{table QD Lipitor 80 MG MG t} MG Gabapentin Gabapentin No 1{capsu TID Gabapentin 300 MG 300 MG le} 300 MG buPROPion buPROPion No buPROPion HCl ER (SR) HCl ER (SR) HCl ER 150 MG 150 MG (SR) 150 MG clonazePAM clonazePAM No 1{table QD clonazePAM 0.5 MG 0.5 MG t_at_be 0.5 MG dtime} Protonix 40 Protonix 40 No 1{table QD Protonix MG MG t} 40 MG Wellbutrin Wellbutrin No 1{table QD Wellbutrin XL 300 MG XL 300 MG t_in_th XL 300 MG e_morni ng} Spironolact Spironolact No 1{table Spironolac one 25 MG one 25 MG t} tone 25 MG buPROPion buPROPion No 1{table BID buPROPion HCl ER HCl ER t_in_th HCl ER (Smoking (Smoking e_morni (Smoking Det) 150 MG Det) 150 MG ng} Det) 150 MG Zoloft 25 Zoloft 25 No 1{table QD Zoloft 25 MG MG t} MG traZODone traZODone No 2{table QD traZODone HCl 100 MG HCl 100 MG t_at_be HCl 100 MG dtime} Lipitor 80 Lipitor 80 No 1{table QD Lipitor 80 MG MG t} MG Cetirizine Cetirizine No 1{table QD Cetirizine HCl 10 MG HCl 10 MG t} HCl 10 MG Levothyroxi Levothyroxi No QD Levothyrox ne Sodium ne Sodium ine Sodium 175 MCG 175 MCG 175 MCG Cyanocobala Cyanocobala No 1{table QD Cyanocobal min 1000 min 1000 t} young 1000 MCG MCG MCG Ibuprofen Ibuprofen No QID Ibuprofen 600 MG 600 MG 600 MG Flonase 50 Flonase 50 No 2{spray QD Flonase 50 MCG/ACT MCG/ACT _in_eac MCG/ACT h_nostr il} Tamsulosin Tamsulosin No 1{capsu QD Tamsulosin HCl 0.4 MG HCl 0.4 MG le} HCl 0.4 MG Propranolol Propranolol No 1{table QD Propranolo HCl 10 MG HCl 10 MG t} l HCl 10 MG Gabapentin Gabapentin No 1{capsu TID Gabapentin 300 MG 300 MG le} 300 MG buPROPion buPROPion No buPROPion HCl ER (SR) HCl ER (SR) HCl ER 150 MG 150 MG (SR) 150 MG clonazePAM clonazePAM No 1{table QD clonazePAM 0.5 MG 0.5 MG t_at_be 0.5 MG dtime} Protonix 40 Protonix 40 No 1{table QD Protonix MG MG t} 40 MG Wellbutrin Wellbutrin No 1{table QD Wellbutrin XL 300 MG XL 300 MG t_in_th XL 300 MG e_morni ng} Spironolact Spironolact No 1{table Spironolac one 25 MG one 25 MG t} tone 25 MG buPROPion buPROPion No 1{table BID buPROPion HCl ER HCl ER t_in_th HCl ER (Smoking (Smoking e_morni (Smoking Det) 150 MG Det) 150 MG ng} Det) 150 MG Zoloft 25 Zoloft 25 No 1{table QD Zoloft 25 MG MG t} MG traZODone traZODone No 2{table QD traZODone HCl 100 MG HCl 100 MG t_at_be HCl 100 MG dtime} Lipitor 80 Lipitor 80 No 1{table QD Lipitor 80 MG MG t} MG Cetirizine Cetirizine No 1{table QD Cetirizine HCl 10 MG HCl 10 MG t} HCl 10 MG Levothyroxi Levothyroxi No QD Levothyrox ne Sodium ne Sodium ine Sodium 175 MCG 175 MCG 175 MCG Cyanocobala Cyanocobala No 1{table QD Cyanocobal min 1000 min 1000 t} young 1000 MCG MCG MCG Ibuprofen Ibuprofen No QID Ibuprofen 600 MG 600 MG 600 MG Flonase 50 Flonase 50 No 2{spray QD Flonase 50 MCG/ACT MCG/ACT _in_eac MCG/ACT h_nostr il} Tamsulosin Tamsulosin No 1{capsu QD Tamsulosin HCl 0.4 MG HCl 0.4 MG le} HCl 0.4 MG Propranolol Propranolol No 1{table QD Propranolo HCl 10 MG HCl 10 MG t} l HCl 10 MG Gabapentin Gabapentin No 1{capsu TID Gabapentin 300 MG 300 MG le} 300 MG buPROPion buPROPion No buPROPion HCl ER (SR) HCl ER (SR) HCl ER 150 MG 150 MG (SR) 150 MG clonazePAM clonazePAM No 1{table QD clonazePAM 0.5 MG 0.5 MG t_at_be 0.5 MG dtime} Protonix 40 Protonix 40 No 1{table QD Protonix MG MG t} 40 MG Wellbutrin Wellbutrin No 1{table QD Wellbutrin XL 300 MG XL 300 MG t_in_th XL 300 MG e_morni ng} Spironolact Spironolact No 1{table Spironolac one 25 MG one 25 MG t} tone 25 MG buPROPion buPROPion No 1{table BID buPROPion HCl ER HCl ER t_in_th HCl ER (Smoking (Smoking e_morni (Smoking Det) 150 MG Det) 150 MG ng} Det) 150 MG Zoloft 25 Zoloft 25 No 1{table QD Zoloft 25 MG MG t} MG traZODone traZODone No 2{table QD traZODone HCl 100 MG HCl 100 MG t_at_be HCl 100 MG dtime} Lipitor 80 Lipitor 80 No 1{table QD Lipitor 80 MG MG t} MG Cetirizine Cetirizine No 1{table QD Cetirizine HCl 10 MG HCl 10 MG t} HCl 10 MG Levothyroxi Levothyroxi No QD Levothyrox ne Sodium ne Sodium ine Sodium 175 MCG 175 MCG 175 MCG Cyanocobala Cyanocobala No 1{table QD Cyanocobal min 1000 min 1000 t} young 1000 MCG MCG MCG Ibuprofen Ibuprofen No QID Ibuprofen 600 MG 600 MG 600 MG Flonase 50 Flonase 50 No 2{spray QD Flonase 50 MCG/ACT MCG/ACT _in_eac MCG/ACT h_nostr il} Tamsulosin Tamsulosin No 1{capsu QD Tamsulosin HCl 0.4 MG HCl 0.4 MG le} HCl 0.4 MG Propranolol Propranolol No 1{table QD Propranolo HCl 10 MG HCl 10 MG t} l HCl 10 MG Levothyroxi Levothyroxi No QD Levothyrox ne Sodium ne Sodium ine Sodium 175 MCG 175 MCG 175 MCG Protonix 40 Protonix 40 No 1{table QD Protonix MG MG t} 40 MG clonazePAM clonazePAM No 1{table QD clonazePAM 0.5 MG 0.5 MG t_at_be 0.5 MG dtime} Cyanocobala Cyanocobala No 1{table QD Cyanocobal min 1000 min 1000 t} young 1000 MCG MCG MCG buPROPion buPROPion No buPROPion HCl ER (SR) HCl ER (SR) HCl ER 150 MG 150 MG (SR) 150 MG Gabapentin Gabapentin No 1{capsu TID Gabapentin 300 MG 300 MG le} 300 MG Zoloft 25 Zoloft 25 No 1{table QD Zoloft 25 MG MG t} MG Tamsulosin Tamsulosin No 1{capsu QD Tamsulosin HCl 0.4 MG HCl 0.4 MG le} HCl 0.4 MG Wellbutrin Wellbutrin No 1{table QD Wellbutrin XL 300 MG XL 300 MG t_in_th XL 300 MG e_morni ng} Flonase 50 Flonase 50 No 2{spray QD Flonase 50 MCG/ACT MCG/ACT _in_eac MCG/ACT h_nostr il} Lipitor 80 Lipitor 80 No 1{table QD Lipitor 80 MG MG t} MG buPROPion buPROPion No 1{table BID buPROPion HCl ER HCl ER t_in_th HCl ER (Smoking (Smoking e_morni (Smoking Det) 150 MG Det) 150 MG ng} Det) 150 MG Levothyroxi Levothyroxi No QD Levothyrox ne Sodium ne Sodium ine Sodium 200 MCG 200 MCG 200 MCG Cetirizine Cetirizine No 1{table QD Cetirizine HCl 10 MG HCl 10 MG t} HCl 10 MG Ibuprofen Ibuprofen No QID Ibuprofen 600 MG 600 MG 600 MG Propranolol Propranolol No 1{table QD Propranolo HCl 10 MG HCl 10 MG t} l HCl 10 MG Spironolact Spironolact No 1{table Spironolac one 25 MG one 25 MG t} tone 25 MG traZODone traZODone No 2{table QD traZODone HCl 100 MG HCl 100 MG t_at_be HCl 100 MG dtime} Levothyroxi Levothyroxi No QD Levothyrox ne Sodium ne Sodium ine Sodium 175 MCG 175 MCG 175 MCG Protonix 40 Protonix 40 No 1{table QD Protonix MG MG t} 40 MG clonazePAM clonazePAM No 1{table QD clonazePAM 0.5 MG 0.5 MG t_at_be 0.5 MG dtime} Cyanocobala Cyanocobala No 1{table QD Cyanocobal min 1000 min 1000 t} young 1000 MCG MCG MCG buPROPion buPROPion No buPROPion HCl ER (SR) HCl ER (SR) HCl ER 150 MG 150 MG (SR) 150 MG Gabapentin Gabapentin No 1{capsu TID Gabapentin 300 MG 300 MG le} 300 MG Zoloft 25 Zoloft 25 No 1{table QD Zoloft 25 MG MG t} MG Tamsulosin Tamsulosin No 1{capsu QD Tamsulosin HCl 0.4 MG HCl 0.4 MG le} HCl 0.4 MG Wellbutrin Wellbutrin No 1{table QD Wellbutrin XL 300 MG XL 300 MG t_in_th XL 300 MG e_morni ng} Flonase 50 Flonase 50 No 2{spray QD Flonase 50 MCG/ACT MCG/ACT _in_eac MCG/ACT h_nostr il} Lipitor 80 Lipitor 80 No 1{table QD Lipitor 80 MG MG t} MG buPROPion buPROPion No 1{table BID buPROPion HCl ER HCl ER t_in_th HCl ER (Smoking (Smoking e_morni (Smoking Det) 150 MG Det) 150 MG ng} Det) 150 MG Levothyroxi Levothyroxi No QD Levothyrox ne Sodium ne Sodium ine Sodium 200 MCG 200 MCG 200 MCG Cetirizine Cetirizine No 1{table QD Cetirizine HCl 10 MG HCl 10 MG t} HCl 10 MG Ibuprofen Ibuprofen No QID Ibuprofen 600 MG 600 MG 600 MG Propranolol Propranolol No 1{table QD Propranolo HCl 10 MG HCl 10 MG t} l HCl 10 MG Spironolact Spironolact No 1{table Spironolac one 25 MG one 25 MG t} tone 25 MG traZODone traZODone No 2{table QD traZODone HCl 100 MG HCl 100 MG t_at_be HCl 100 MG dtime} Levothyroxi Levothyroxi No QD Levothyrox ne Sodium ne Sodium ine Sodium 175 MCG 175 MCG 175 MCG Protonix 40 Protonix 40 No 1{table QD Protonix MG MG t} 40 MG clonazePAM clonazePAM No 1{table QD clonazePAM 0.5 MG 0.5 MG t_at_be 0.5 MG dtime} Cyanocobala Cyanocobala No 1{table QD Cyanocobal min 1000 min 1000 t} young 1000 MCG MCG MCG buPROPion buPROPion No buPROPion HCl ER (SR) HCl ER (SR) HCl ER 150 MG 150 MG (SR) 150 MG Gabapentin Gabapentin No 1{capsu TID Gabapentin 300 MG 300 MG le} 300 MG Zoloft 25 Zoloft 25 No 1{table QD Zoloft 25 MG MG t} MG Tamsulosin Tamsulosin No 1{capsu QD Tamsulosin HCl 0.4 MG HCl 0.4 MG le} HCl 0.4 MG Wellbutrin Wellbutrin No 1{table QD Wellbutrin XL 300 MG XL 300 MG t_in_th XL 300 MG e_morni ng} Flonase 50 Flonase 50 No 2{spray QD Flonase 50 MCG/ACT MCG/ACT _in_eac MCG/ACT h_nostr il} Lipitor 80 Lipitor 80 No 1{table QD Lipitor 80 MG MG t} MG buPROPion buPROPion No 1{table BID buPROPion HCl ER HCl ER t_in_th HCl ER (Smoking (Smoking e_morni (Smoking Det) 150 MG Det) 150 MG ng} Det) 150 MG Levothyroxi Levothyroxi No QD Levothyrox ne Sodium ne Sodium ine Sodium 200 MCG 200 MCG 200 MCG Cetirizine Cetirizine No 1{table QD Cetirizine HCl 10 MG HCl 10 MG t} HCl 10 MG Ibuprofen Ibuprofen No QID Ibuprofen 600 MG 600 MG 600 MG Propranolol Propranolol No 1{table QD Propranolo HCl 10 MG HCl 10 MG t} l HCl 10 MG Spironolact Spironolact No 1{table Spironolac one 25 MG one 25 MG t} tone 25 MG traZODone traZODone No 2{table QD traZODone HCl 100 MG HCl 100 MG t_at_be HCl 100 MG dtime} Levothyroxi Levothyroxi No QD Levothyrox ne Sodium ne Sodium ine Sodium 175 MCG 175 MCG 175 MCG Protonix 40 Protonix 40 No 1{table QD Protonix MG MG t} 40 MG clonazePAM clonazePAM No 1{table QD clonazePAM 0.5 MG 0.5 MG t_at_be 0.5 MG dtime} Cyanocobala Cyanocobala No 1{table QD Cyanocobal min 1000 min 1000 t} young 1000 MCG MCG MCG buPROPion buPROPion No buPROPion HCl ER (SR) HCl ER (SR) HCl ER 150 MG 150 MG (SR) 150 MG Gabapentin Gabapentin No 1{capsu TID Gabapentin 300 MG 300 MG le} 300 MG Zoloft 25 Zoloft 25 No 1{table QD Zoloft 25 MG MG t} MG Tamsulosin Tamsulosin No 1{capsu QD Tamsulosin HCl 0.4 MG HCl 0.4 MG le} HCl 0.4 MG Wellbutrin Wellbutrin No 1{table QD Wellbutrin XL 300 MG XL 300 MG t_in_th XL 300 MG e_morni ng} Flonase 50 Flonase 50 No 2{spray QD Flonase 50 MCG/ACT MCG/ACT _in_eac MCG/ACT h_nostr il} Lipitor 80 Lipitor 80 No 1{table QD Lipitor 80 MG MG t} MG buPROPion buPROPion No 1{table BID buPROPion HCl ER HCl ER t_in_th HCl ER (Smoking (Smoking e_morni (Smoking Det) 150 MG Det) 150 MG ng} Det) 150 MG Levothyroxi Levothyroxi No QD Levothyrox ne Sodium ne Sodium ine Sodium 200 MCG 200 MCG 200 MCG Cetirizine Cetirizine No 1{table QD Cetirizine HCl 10 MG HCl 10 MG t} HCl 10 MG Ibuprofen Ibuprofen No QID Ibuprofen 600 MG 600 MG 600 MG Propranolol Propranolol No 1{table QD Propranolo HCl 10 MG HCl 10 MG t} l HCl 10 MG Spironolact Spironolact No 1{table Spironolac one 25 MG one 25 MG t} tone 25 MG traZODone traZODone No 2{table QD traZODone HCl 100 MG HCl 100 MG t_at_be HCl 100 MG dtime} Cetirizine Cetirizine No 1{table QD Cetirizine HCl 10 MG HCl 10 MG t} HCl 10 MG Cyanocobala Cyanocobala No 1{table QD Cyanocobal min 1000 min 1000 t} young 1000 MCG MCG MCG Propranolol Propranolol No 1{table QD Propranolo HCl 10 MG HCl 10 MG t} l HCl 10 MG buPROPion buPROPion No 1{table BID buPROPion HCl ER HCl ER t_in_th HCl ER (Smoking (Smoking e_morni (Smoking Det) 150 MG Det) 150 MG ng} Det) 150 MG Spironolact Spironolact No 1{table Spironolac one 25 MG one 25 MG t} tone 25 MG traZODone traZODone No 2{table QD traZODone HCl 100 MG HCl 100 MG t_at_be HCl 100 MG dtime} Ibuprofen Ibuprofen No QID Ibuprofen 600 MG 600 MG 600 MG Zoloft 25 Zoloft 25 No 1{table QD Zoloft 25 MG MG t} MG Wellbutrin Wellbutrin No 1{table QD Wellbutrin XL 300 MG XL 300 MG t_in_th XL 300 MG e_morni ng} Lipitor 80 Lipitor 80 No 1{table QD Lipitor 80 MG MG t} MG clonazePAM clonazePAM No 1{table QD clonazePAM 0.5 MG 0.5 MG t_at_be 0.5 MG dtime} Tamsulosin Tamsulosin No 1{capsu QD Tamsulosin HCl 0.4 MG HCl 0.4 MG le} HCl 0.4 MG buPROPion buPROPion No buPROPion HCl ER (SR) HCl ER (SR) HCl ER 150 MG 150 MG (SR) 150 MG Protonix 40 Protonix 40 No 1{table QD Protonix MG MG t} 40 MG Gabapentin Gabapentin No 1{capsu TID Gabapentin 300 MG 300 MG le} 300 MG Levothyroxi Levothyroxi No QD Levothyrox ne Sodium ne Sodium ine Sodium 200 MCG 200 MCG 200 MCG Levothyroxi Levothyroxi No QD Levothyrox ne Sodium ne Sodium ine Sodium 175 MCG 175 MCG 175 MCG Flonase 50 Flonase 50 No 2{spray QD Flonase 50 MCG/ACT MCG/ACT _in_eac MCG/ACT h_nostr il} Cetirizine Cetirizine No 1{table QD Cetirizine HCl 10 MG HCl 10 MG t} HCl 10 MG Cyanocobala Cyanocobala No 1{table QD Cyanocobal min 1000 min 1000 t} young 1000 MCG MCG MCG Propranolol Propranolol No 1{table QD Propranolo HCl 10 MG HCl 10 MG t} l HCl 10 MG buPROPion buPROPion No 1{table BID buPROPion HCl ER HCl ER t_in_th HCl ER (Smoking (Smoking e_morni (Smoking Det) 150 MG Det) 150 MG ng} Det) 150 MG Spironolact Spironolact No 1{table Spironolac one 25 MG one 25 MG t} tone 25 MG traZODone traZODone No 2{table QD traZODone HCl 100 MG HCl 100 MG t_at_be HCl 100 MG dtime} Ibuprofen Ibuprofen No QID Ibuprofen 600 MG 600 MG 600 MG Zoloft 25 Zoloft 25 No 1{table QD Zoloft 25 MG MG t} MG Wellbutrin Wellbutrin No 1{table QD Wellbutrin XL 300 MG XL 300 MG t_in_th XL 300 MG e_morni ng} Lipitor 80 Lipitor 80 No 1{table QD Lipitor 80 MG MG t} MG clonazePAM clonazePAM No 1{table QD clonazePAM 0.5 MG 0.5 MG t_at_be 0.5 MG dtime} Tamsulosin Tamsulosin No 1{capsu QD Tamsulosin HCl 0.4 MG HCl 0.4 MG le} HCl 0.4 MG buPROPion buPROPion No buPROPion HCl ER (SR) HCl ER (SR) HCl ER 150 MG 150 MG (SR) 150 MG Protonix 40 Protonix 40 No 1{table QD Protonix MG MG t} 40 MG Gabapentin Gabapentin No 1{capsu TID Gabapentin 300 MG 300 MG le} 300 MG Levothyroxi Levothyroxi No QD Levothyrox ne Sodium ne Sodium ine Sodium 200 MCG 200 MCG 200 MCG Levothyroxi Levothyroxi No QD Levothyrox ne Sodium ne Sodium ine Sodium 175 MCG 175 MCG 175 MCG Flonase 50 Flonase 50 No 2{spray QD Flonase 50 MCG/ACT MCG/ACT _in_eac MCG/ACT h_nostr il} Cetirizine Cetirizine No 1{table QD Cetirizine HCl 10 MG HCl 10 MG t} HCl 10 MG Cyanocobala Cyanocobala No 1{table QD Cyanocobal min 1000 min 1000 t} young 1000 MCG MCG MCG Propranolol Propranolol No 1{table QD Propranolo HCl 10 MG HCl 10 MG t} l HCl 10 MG buPROPion buPROPion No 1{table BID buPROPion HCl ER HCl ER t_in_th HCl ER (Smoking (Smoking e_morni (Smoking Det) 150 MG Det) 150 MG ng} Det) 150 MG Spironolact Spironolact No 1{table Spironolac one 25 MG one 25 MG t} tone 25 MG traZODone traZODone No 2{table QD traZODone HCl 100 MG HCl 100 MG t_at_be HCl 100 MG dtime} Ibuprofen Ibuprofen No QID Ibuprofen 600 MG 600 MG 600 MG Zoloft 25 Zoloft 25 No 1{table QD Zoloft 25 MG MG t} MG Wellbutrin Wellbutrin No 1{table QD Wellbutrin XL 300 MG XL 300 MG t_in_th XL 300 MG e_morni ng} Lipitor 80 Lipitor 80 No 1{table QD Lipitor 80 MG MG t} MG clonazePAM clonazePAM No 1{table QD clonazePAM 0.5 MG 0.5 MG t_at_be 0.5 MG dtime} Tamsulosin Tamsulosin No 1{capsu QD Tamsulosin HCl 0.4 MG HCl 0.4 MG le} HCl 0.4 MG buPROPion buPROPion No buPROPion HCl ER (SR) HCl ER (SR) HCl ER 150 MG 150 MG (SR) 150 MG Protonix 40 Protonix 40 No 1{table QD Protonix MG MG t} 40 MG Gabapentin Gabapentin No 1{capsu TID Gabapentin 300 MG 300 MG le} 300 MG Levothyroxi Levothyroxi No QD Levothyrox ne Sodium ne Sodium ine Sodium 200 MCG 200 MCG 200 MCG Levothyroxi Levothyroxi No QD Levothyrox ne Sodium ne Sodium ine Sodium 175 MCG 175 MCG 175 MCG Flonase 50 Flonase 50 No 2{spray QD Flonase 50 MCG/ACT MCG/ACT _in_eac MCG/ACT h_nostr il} Flonase 50 Flonase 50 No 2{spray QD Flonase 50 MCG/ACT MCG/ACT _in_eac MCG/ACT h_nostr il} Tamsulosin Tamsulosin No 1{capsu QD Tamsulosin HCl 0.4 MG HCl 0.4 MG le} HCl 0.4 MG BuPROPion BuPROPion No 1{table BID BuPROPion HCl ER HCl ER t_in_th HCl ER (Smoking (Smoking e_morni (Smoking Det) 150 MG Det) 150 MG ng} Det) 150 MG Trazodone Trazodone No 2{table QD Trazodone HCl 100 MG HCl 100 MG t_at_be HCl 100 MG dtime} Clonazepam Clonazepam No 1{table QD Clonazepam 0.5 MG 0.5 MG t_at_be 0.5 MG dtime} Levothyroxi Levothyroxi No QD Levothyrox ne Sodium ne Sodium ine Sodium 175 MCG 175 MCG 175 MCG Zoloft 25 Zoloft 25 No 1{table QD Zoloft 25 MG MG t} MG Protonix 40 Protonix 40 No 1{table QD Protonix MG MG t} 40 MG Lipitor 80 Lipitor 80 No 1{table QD Lipitor 80 MG MG t} MG Spironolact Spironolact No 1{table Spironolac one 25 MG one 25 MG t} tone 25 MG Cyanocobala Cyanocobala No 1{table QD Cyanocobal min 1000 min 1000 t} young 1000 MCG MCG MCG Levothyroxi Levothyroxi No QD Levothyrox ne Sodium ne Sodium ine Sodium 175 MCG 175 MCG 175 MCG BuPROPion BuPROPion No BuPROPion HCl ER (SR) HCl ER (SR) HCl ER 150 MG 150 MG (SR) 150 MG BuPROPion BuPROPion No BuPROPion HCl ER (SR) HCl ER (SR) HCl ER 150 MG 150 MG (SR) 150 MG Lipitor 80 Lipitor 80 No 1{table QD Lipitor 80 MG MG t} MG Immunizations Ordered Filled Immunization Date Status Comments [facility] e Immunization Name Name SARS-COV-2 COVID-19 2021-09-21 Completed [facility] VACC[facility] 00:00:00 [facility] SARS-COV-2 COVID-19 2021-09-21 Completed [facility] of PFIZER VACCINE 00:00:00 [facility] SARS-COV-2 COVID-19 2021-09-21 Completed [facility] of PFIZER VACCINE 00:00:00 [facility] SARS-COV-2 COVID-19 2021-01-22 Completed [facility] of PFIZER VACCINE 00:00:00 [facility] SARS-COV-2 COVID-19 2021-01-22 Completed [facility] of PFIZER VACCINE 00:00:00 [facility] SARS-COV-2 COVID-19 2021-01-22 Completed [facility] of PFIZER VACCINE 00:00:00 [facility] SARS-COV-2 COVID-19 2020-12-31 Completed [facility] of PFIZER VACCINE 00:00:00 [facility] SARS-COV-2 COVID-19 2020-12-31 Completed [facility] of PFIZER VACCINE 00:00:00 [facility] SARS-COV-2 COVID-19 2020-12-31 Completed [facility] of PFIZER VACCINE 00:00:00 [facility] Flucelvax - Flucelvax - 2019-08-10 Completed [facility] - multidose vial multidose vial 16:52:00 [facility] Flucelvax - Flucelvax - 2019-08-10 Completed [facility] - multidose vial multidose vial 16:52:00 [facility] Flucelvax - Flucelvax - 2019-08-10 Completed [facility] - multidose vial multidose vial 16:52:00 [facility] Flucelvax - Flucelvax - 2019-08-10 Completed [facility] - multidose vial multidose vial 16:52:00 [facility] Flucelvax - Flucelvax - 2019-08-10 Completed [facility] - multidose vial multidose vial 16:52:00 [facility] Flucelvax - Flucelvax - 2019-08-10 Completed [facility] - multidose vial multidose vial 16:52:00 [facility] Flucelvax - Flucelvax - 2019-08-10 Completed [facility] - multidose vial multidose vial 16:52:00 [facility] Flucelvax - Flucelvax - 2019-08-10 Completed [facility] - multidose vial multidose vial 16:52:00 [facility] Flucelvax - Flucelvax - 2019-08-10 Completed [facility] - multidose vial multidose vial 16:52:00 [facility] Flucelvax - Flucelvax - 2019-08-10 Completed [facility] - multidose vial multidose vial 16:52:00 [facility] Flucelvax - Flucelvax - 2019-08-10 Completed [facility] - multidose vial multidose vial 16:52:00 [facility] Flucelvax - Flucelvax - 2019-08-10 Completed [facility] - multidose vial multidose vial 16:52:00 [facility] Flucelvax - Flucelvax - 2019-08-10 Completed [facility] - multidose vial multidose vial 16:52:00 [facility] Flucelvax - Flucelvax - 2019-08-10 Completed [facility] - multidose vial multidose vial 16:52:00 [facility] Flucelvax - Flucelvax - 2019-08-10 Completed [facility] - multidose vial multidose vial 00:00:00 [facility] Influenza Virus 2019-07-17 Completed [facility]00 [facility] Influenza Virus 2019-07-17 Completed [facility] Vaccine 00:00:00 [facility] Influenza Virus 2019-07-17 Completed [facility] Vaccine 00:00:00 [facility] Influenza Virus 2018-11-13 Completed [facility] Vaccine 00:00:00 [facility] Influenza Virus 2018-11-13 Completed [facility] Vaccine 00:00:00 [facility] Influenza Virus 2018-11-13 Completed [facility] Vacc[facility] 00:00:00 [facility] Influenza Virus 2016-08-17 Completed [facility] Vaccine 00:00:00 [facility] Influenza Virus 2016-08-17 Completed [facility] Vaccine (3+ yrs) 00:00:00 [facility] Influenza Virus 2016-08-17 Completed [facility] [facility] Influenza Virus 2016-08-17 Completed Universit y of Vaccine (3+ yrs) 00:00:00 [facility] Influenza Virus 2016-08-17 Completed Universit y of Vaccine 00:00:00 [facility] Influenza Virus 2016-08-17 Completed Universit y of Vaccine (3+ yrs) 00:00:00 [facility] Twinrix (hep a/hep 2016-01-08 Completed Univer sity of b) 00:00:00 [facility] Twinrix (hep a/hep 2016-01-08 Completed Univer sity of b) 00:00:00 [facility] Twinrix (hep a/hep 2016-01-08 Completed Univer sity of b) 00:00:00 [facility] Twinrix (hep a/hep 2015-12-09 Completed Univer sity of b) 00:00:00 [facility] Twinrix (hep a/hep 2015-12-09 Completed Univer sity of b) 00:00:00 [facility] Twinrix (hep a/hep 2015-12-09 Completed Univer sity of b) 00:00:00 [facility] Pneumococcal 2015-08-20 Completed University o f Polysaccharide, 00:00:00 [facility] ical PPSV23 (PNEUMOVAX) Branch Pneumococcal 2015-08-20 Completed University o f Polysaccharide, 00:00:00 [facility] ical PPSV23 (PNEUMOVAX) Branch Pneumococcal 2015-08-20 Completed University o f Polysaccharide, 00:00:00 [facility] ical PPSV23 (PNEUMOVAX) Branch Influenza Virus 2012-09-11 Completed Universit y of Vaccine 00:00:00 [facility] TDAP 2012-09-11 Completed University of 00:00:00 [facility] Influenza Virus 2012-09-11 Completed Universit y of Vaccine 00:00:00 [facility] TDAP 2012-09-11 Completed University of 00:00:00 [facility] Influenza Virus 2012-09-11 Completed Universit y of Vaccine 00:00:00 [facility] TDAP 2012-09-11 Completed University of 00:00:00 [facility] Influenza Virus 2010-07-17 Completed Universit y of Vaccine 00:00:00 [facility] Influenza Virus 2010-07-17 Completed Universit y of Vaccine 00:00:00 [facility] Influenza Virus 2010-07-17 Completed Universit y of Vaccine 00:00:00 [facility] Vital Signs Vital Name Observation Time Observation Value Comments Source height 2021-07-31 11:20:00 65.00 [in_i] Common [facility] weight 2021-07-31 11:20:00 215 [lb_av] Common S [facility]irit [facility] bmi 2021-07-31 11:20:00 35.77 kg/m2 Common S [facility] height 2021-06-05 16:20:00 65.00 [in_i] Common S [facility] weight 2021-06-05 16:20:00 216.2 [lb_av] Common [facility] temperature 2021-06-05 16:20:00 97.3 [degF] Common S pirit [facility] bmi 2021-06-05 16:20:00 35.97 kg/m2 [facility] S pirit [facility] oximetry 2021-06-05 16:20:00 95 % [facility] S pirit [facility] respiratory rate 2021-06-05 16:20:00 17 /min Comm on Spirit [facility] blood pressure 2021-06-05 16:20:00 129 mm[Hg] Common [facility] - systolic [facility] blood pressure 2021-06-05 16:20:00 77 mm[Hg] Common [facility] - diastolic [facility] height 2021-04-28 14:00:00 65.00 [in_i] [facility] weight 2021-04-28 14:00:00 230.4 [lb_av] Common [facility] temperature 2021-04-28 14:00:00 96.4 [degF] Common S pirit [facility] bmi 2021-04-28 14:00:00 38.34 kg/m2 [facility] 2021-04-28 14:00:00 92 % Common S pirit [facility] blood pressure 2021-04-28 14:00:00 114 mm[Hg] Common [facility] - systolic [facility] blood pressure 2021-04-28 14:00:00 59 mm[Hg] [facility] - diastolic [facility] height 2021-04-28 14:40:00 65.00 [in_i] Common S pirit [facility] weight 2021-04-28 14:40:00 230.4 [lb_av] [facility] temperature 2021-04-28 14:40:00 96.4 [degF] [facility] bmi 2021-04-28 14:40:00 38.34 kg/m2 [facility] S pirit [facility] oximetry 2021-04-28 14:40:00 92 % Common S pirit [facility] blood pressure 2021-04-28 14:40:00 114 mm[Hg] Common [facility] - systolic [facility] blood pressure 2021-04-28 14:40:00 59 mm[Hg] Common [facility] - diastolic [facility] height 2021-02-17 08:40:00 65.00 [in_i] [facility] weight 2021-02-17 08:40:00 232.0 [lb_av] [facility] temperature 2021-02-17 08:40:00 97.5 [degF] [facility] bmi 2021-02-17 08:40:00 38.60 kg/m2 [facility] oximetry 2021-02-17 08:40:00 96 % [facility] respiratory rate 2021-02-17 08:40:00 15 /min Comm on [facility] blood pressure 2021-02-17 08:40:00 129 mm[Hg] Common [facility] - systolic [facility] blood pressure 2021-02-17 08:40:00 69 mm[Hg] Common [facility] - diastolic [facility] height 2021-01-07 09:20:00 65.00 [in_i] [facility] weight 2021-01-07 09:20:00 230 [lb_av] [facility] bmi 2021-01-07 09:20:00 38.27 [facility]2 [facility] Procedures This patient has no known procedures. Plan of Care Planned Activity Planned Date Details Comments Source Future Scheduled 2023-01-16 COVID-19 VACCINE (#1) [facility] Test 06:08:00 [code = COVID-19 VACCINE (#1)] Future Scheduled 2023-01-16 [facility] Test 06:08:00 malignant neoplasm of colon (procedure) [code = 277471762] Future Scheduled 2023-01-16 SHINGLES VACCINES (1 [facility] Test 06:08:00 of 2) [code = SHINGLES VACCINES (1 of 2)] Future Scheduled 2023-01-16 65[facility]OC[facility] [facility] Test 06:08:00 VACCINE (1 - PCV) [code = 65+ PNEUMOCOCCAL VACCINE (1 - PCV)] Future Scheduled 2023-01-16 INFLUENZA VACCINE [facility] Test 06:08:00 [code = INFLUENZA VACCINE] Future Scheduled COVID-19 VACCINE (1) [facility] Test [code = COVID-19 VACCINE (1)] Future Scheduled Hepatitis C screening [facility] Test (procedure) [code = 035639013] Future Scheduled COLONOSCOPY SCREENING [facility] Hospital Test [code = COLONOSCOPY SCREENING] Future Scheduled SHINGLES VACCINES (#1) [facility] Test [code = SHINGLES VACCINES (#1)] Future Scheduled INFLUENZA VACCINE [facility] Test [code = INFLUENZA VACCINE] Encounters Start End Encounter Admission Attending Care Care Encounter Source Date/Time Date/Time Type Type Clinicians Facility Department ID 2022-01-28 Inpatient Nancy Snow HCACL DAYS [id number] [facility] 09:30:00 [id number] [facility] 2021-11-11 Outpatient Young, Na [facility] [id number] Common 14:36:16 [facility] 2021-11-11 Outpatient Young, Na [facility] [id number] 2 Common 14:35:33 [facility] 2021-11-11 Outpatient Hector Na [facility] [id number] 2 Common 14:23:03 [id number] [facility] 2021-11-11 Outpatient Hector Na [facility] [id number] 2 Common 13:59:52 [id number] [facility] 2021-11-11 Outpatient Young, Na STLMLC STLMLC [id number] 2 Common 13:41:12 [id number] [facility] 2021-11-11 Outpatient Young, Na STLMLC STLMLC [id number] 2 Common 12:44:54 [id number] [facility] 2021-11-11 Outpatient Young, Na STLMLC STLMLC [id number] 2 Common 12:43:14 [id number] [facility] 2021-11-11 Outpatient Young, Na STLMLC STLMLC [id number] 2 Common 11:28:01 [id number] [facility] 2021-11-11 Outpatient Young, Na STLMLC STLMLC [id number] 2 Common 11:17:04 [id number] [facility] 2021-11-11 Outpatient Young, Na STLMLC STLMLC [id number] 2 Common 10:59:43 [id number] [facility] 2021-08-16 Emergency [facility] [id number] Univers [facility]14 Emergency [facility] [id number] Univers 19:06:47 [facility] 2023-03-03 2023-03-03 Emergency E MADAIN, MHSE MHSE [id number] MH 13:23:00 19:04:00 [facility] 2022-02-14 2022-02-14 Emergency EM Deleon, HCACL DAIANA [id number] [facility] 12:27:00 13:50:00 Guevara 47 [facility] 2022-02-14 2022-02-14 Emergency EM Deleon, HCACL HCACL [id number] [facility] 12:27:00 12:27:00 Guevara [id number] [facility] 2022-02-11 2022-02-13 Inpatient EL Jennifer, HCACL MEDI.01 [id number] [facility] 05:38:00 19:25:00 Shafraz 78 [facility] 2022-02-11 2022-02-13 Inpatient NANCY Rodriguez HCACL MEDI.01 [id number] [facility] 05:38:00 19:25:00 [facility] [id number] [facility] 2022-02-10 2022-02-10 Outpatient R [facility] [id number] Univers 10:00:00 10:00:[address] [facility] 2022-02-10 2022-02-10 Outpatient R [facility] [id number] Univers 10:00:00 10:00:[address] [facility] 2022-02-10 2022-02-10 Outpatient R [facility] [id number] Univers 10:00:00 10:00:[address] [facility] 2022-02-09 2022-02-09 Inpatient Nancy Snow [facility] [id number] [facility] 08:00:00 08:00:00 [id number] [facility] 2022-02-05 2022-02-05 Telephone [facility] [id number] Univers 00:00:00 00:00:00 Henry PALAFOXPEC [id number] ity of IALTY [id number] [facility] [id number] [address] [facility] 2022-02-01 2022-02-01 Outpatient R [facility] [id number] Univers 09:30:00 09:30:00 HENRY [facility] 2022-01-28 2022-01-28 Letter [facility] [id number] Univers 00:00:00 00:00:00 (Out) Henry PALAFOXPEC [id number] ity of IALTY [id number] [facility] [id number] [address] [facility] 2022-01-28 2022-01-28 Telephone [facility] [id number] Univers 00:00:00 00:00:00 Henry PALAFOXPEC [id number] ity of [id number] [id number] [facility] [address] [place] [facility] 2022-01-26 2022-01-26 Outpatient Nancy Snow HCACL OUTD [id number] [facility] 12:28:00 12:28:00 67 [facility] 2022-01-26 2022-01-26 Inpatient Nancy Snow HCACL DAYS [id number] [facility] 09:30:00 09:30:00 [id number] [facility] 2021-12-29 2021-12-29 [facility] [id number] Univers 00:00:00 00:00:00 (Out) [facility] [id number] it y of Physical CLEAR [id number] [facility] as [place] [phone] [address] OFFICE BUILDING 2021-12-28 2021-12-28 [place] [employer] Vtc-Lab [facility] 1.2.840.114 [id number] Univers 15:30:00 15:45:00 Visit Henry Gonzalez 350.1.13.1 0 ity of IALTY 4.2.7.2.686 [facility] [place] [id number] [address] [facility] 2021-12-28 2021-12-28 Outpatient R [facility] [id number] Univers 15:30:00 15:30:00 HENRY anna [facility] 2021-12-28 2021-12-28 Outpatient R [facility] [id number] Univers 14:30:00 15:27:44 HENRY anna [facility] 2021-12-28 2021-12-28 Office [facility] [id number] Univers 14:30:00 15:27:44 Visit Henry PALAFOXPEC [id number] ity of [place]AL[place] [id number] [facility] [place] [id number] [address] [facility] 2021-11-24 2021-11-24 [facility] [id number] Univers 12:14:52 23:59:00 Encounter Perico [facility] [id number] ity of [place] 4.2.7.2.686 [place] as NNAMDI?BLEA [phone] Va yelena MCINTYRE [address] [place] MEDICAL OFFICE BUILDING 2021-11-24 2021-11-24 Outpatient PERICO ARRINGTON [facility] [id number] Univers 11:20:00 13:11:21 PERICO ALANIZ nayeli [facility] 2021-11-24 2021-11-24 Outpatient PERICO ARRINGTON [facility] [id number] Univers 11:20:00 13:11:21 PERICO ALANIZ [facility] 2021-11-16 2021-11-16 Emergency [facility] [id number] Univers 21:10:00 22:15:00 [place] Arzate [place] [id number] ity of [place] 4.2.7.2.686 [place] [facility] [id number] [address] 2021-11-16 2021-11-16 Emergency X [facility] ERT [id number] Univers 21:10:00 22:15:00 GENEVA [facility] 2021-11-16 2021-11-16 Orders Doctor CHRISTIANO 1.2.840.114 [id number] Univers 00:00:00 00:00:00 Only Unassigned, TIMO [id number] ity of [place] [facility] 4.2.7.2.686 [place] as [phone] [address] 2021-10-27 2021-10-27 Orders Doctor CHRISTIANO 1.2.840.114 [id number] Univers 00:00:00 00:00:00 Only Unassigned, TIMO [id number] ity of [place] [facility] [id number] [place] [id number] [address] 2021-10-02 2021-10-02 (TEL) STLC STLC [id number] Co mmon 00:00:00 00:00:00 [facility] 2021-09-25 2021-09-25 (TEL) STLMLC STLMLC [id number] Co mmon 00:00:00 00:00:00 Spirit [facility] 2021-09-21 2021-09-21 Imm/Inj Nurse, Adc Pob Immunization [facility] 1.2.840.114 [id number] Univers 13:36:07 13:36:16 Visit Walter Guillory 350.1.13 .10 ity of [place] 4.2.7.2.686 [place] [phone] [address] 2021-09-21 2021-09-21 Outpatient R PASTORA [facility] [id number] Univers 13:30:00 13:36:16 WALTER [facility] 2021-07-31 2021-07-31 OFFICE STLMLC STLMLC [id number] Co mmon 00:00:00 00:00:00 VISIT [facility] PT - CHI LEVEL 4 [facility] 2021-07-17 2021-07-17 (TEL) STLMLC STLMLC [id number] Co mmon 00:00:00 00:00:00 [facility] - [facility] 2021-07-17 2021-07-17 Transition Gera Powers 1.2.840.114 [id number] Univers 00:00:00 00:00:00 of Care Radha Hamilton 350.1.13.10 it y of [place] 4.2.7.2.686 [place] [phone] [facility] [address] 2021-07-15 2021-07-16 [facility] Anitha [place] 1.2.840.11 [id number] Univers 16:52:00 17:30:00 Encounter Lawson Barnes 350.1.13.10 ity of [facility] [id number] [place] [id number] [facility] 098 Branch 2021-07-15 2021-07-16 Outpatient X HALEY [facility] JUSTINO [id number] Univers 16:52:00 17:30:00 [facility] 2021-06-12 2021-06-12 (TEL) STLMLC STLMLC [id number] Co mmon 00:00:00 00:00:00 [facility] 2021-06-08 2021-06-08 (TEL) STLMLC STLMLC [id number] Co mmon 00:00:00 00:00:00 [facility] 2021-06-05 2021-06-05 OFFICE STLMLC STLMLC [id number] Co mmon 00:00:00 00:00:00 VISIT [facility] LEVEL 4 [facility] 2021-05-27 2021-05-27 (TEL) STLMLC STLMLC [id number] Co mmon 00:00:00 00:00:00 [facility] 2021-05-22 2021-05-22 Outpatient PERICO ARRINGTON [facility] [id number] Univers 00:00:00 00:00:00 PERICO ALANIZ [facility] 2021-05-18 2021-05-18 Office Corbin [facility] 1.2.840.114 [id number] [facility] 10:05:54 11:45:48 Visit Perico Sylvester 350.1.13.10 ity [facility] 4.2.7.2.686 Avani Medina [phone] [address] 2021-05-18 2021-05-18 Office [place] [facility] 1.2.840.114 [id number] 10:05:54 11:45:48 Visit Perico Sylvester 350.1.13.10 [place] 4.2.7.2.686 Professio [id number] [address] 2021-05-18 2021-05-18 Outpatient PERICO ARRINGTON [facility] [id number] Univers 10:00:00 10:00:00 PERICO ALANIZ [facility] 2021-05-18 2021-05-18 Orders Doctor ALVARADO 1.2.840.114 [id number] Univers 00:00:00 00:00:00 Only Unassigned, TIMO 350.1.13.10 ity of [facility] 4.2.7.2.686 [place] [phone] [facility] [address] 2021-05-04 2021-05-04 Orders Doctor CHRISTIANO 1.2.840.114 [id number] Univers 00:00:00 00:00:00 Only Unassigned, TIMO 350.1.13.10 [facility] 4.2.7.2.686 [place] [phone] [facility] 00[address] Branch 2021-04-28 2021-04-28 SUB ANNUAL STLMLC STLMLC [id number] Common 00:00:00 00:00:00 MCR Spirit WELLNESS - CHI VISIT [facility] 2021-04-28 2021-04-28 OFFICE STLMLC STLMLC [id number] Co mmon 00:00:00 00:00:00 VISIT EST Spir it PT LEVEL 3 - [facility] 2021-03-16 2021-03-16 [facility] [id number] Univers 14:04:00 18:15:00 Anitha Sylvester 350.1.13.10 i ty [facility] 4.2.7.2.686 [place] [facility] [phone] [facility] 084 Branch 2021-03-16 2021-03-16 Emergency X MARGY [facility] ERT [id number] Univers 14:04:00 18:15:00 ANITHA ity [facility] 2021-02-17 2021-02-17 OFFICE STLC STLMLC [id number] Co mmon 00:00:00 00:00:00 VISIT Spirit ESTAB PT - CHI LEVEL 4 [facility] 2021-01-26 2021-01-26 (TEL) STLMLC STLMLC [id number] Co mmon 00:00:00 00:00:00 [facility] 2021-01-22 2021-01-22 Outpatient Ibeth HALL [facility] [id number] Univers 11:30:00 11:06:23 TYRONE anna [facility] 2021-01-15 2021-01-15 Emergency Andressa Nguyen [facility] 1.2.840.114 [id number] Univers 12:40:00 14:58:00 Veronika Sylvester 350.1.13.10 i ty [facility] 4.2.7.2.686 [facility] [phone] [facility] [address] 2021-01-15 2021-01-15 Orders Doctor CHRISTIANO Ngo.2.840.114 [id number] Univers 00:00:00 00:00:00 Only Unassigned, TIMO 350.1.13.10 ity of [place] [facility] 4.2.7.2.686 [place] [phone] [address] 2021-01-07 2021-01-07 [facility] [id number] Co mmon 00:00:00 00:00:00 VISIT EST Spir it PT LEVEL 3 - [facility] 2020-12-31 2020-12-31 Outpatient Ibeth HALL [facility] [id number] Univers 11:30:00 10:55:10 TYRONE [facility] 2020-12-25 2020-12-25 Outpatient PERICO ARRINGTON [facility] [id number] Univers 09:00:00 09:00:00 PERICO ALANIZ ity [facility] 2020-12-25 2020-12-25 Orders Doctor CHRISTIANO Ngo.2.840.114 [id number] Univers 00:00:00 00:00:00 Only Unassigned, TIMO 350.1.13.10 ity of [place] [facility] 4.2.7.2.686 [place] [phone] [address] 2020-11-13 2020-11-13 Orders Doctor CHRISTIANO Ngo.2.840.114 [id number] Univers 00:00:00 00:00:00 Only Unassigned, TIMO 350.1.13.10 ity of [place] [facility] 4.2.7.2.686 [place] [phone] [address] 2020-11-10 2020-11-10 [facility] [id number] Co mmon 00:00:00 00:00:00 [facility] 2020-08-07 2020-08-07 Outpatient Ibeth MURPHY [facility] [id number] Univers 08:30:00 08:30:00 SENDIL ity [facility] 2020-07-15 2020-07-15 Transition Gera Mcbride 1.2.840.114 [id number] Univers 00:00:00 00:00:00 of Care Idalia Hamilton 350.1.13.10 it y of [place] 4.2.7.2.686 [place] [phone] [facility] [address] 2020-07-14 2020-07-14 Transition Gera Mcbride 1.2.840.114 [id number] Univers 00:00:00 00:00:00 of Care Idalia Hamilton 350.1.13.10 it y of [place] 4.2.7.2.686 [place] [phone] [facility] [address] 2020-07-09 2020-07-11 Emergency Zachariah Alvarado [facility] 1.2.840. 114 [id number] Univers 16:30:00 16:33:00 Geneva Hanson 350.1.13.10 ity of Lisandra [place]as[place] 4.2.7.2.686 [facility] [phone] [facility] 0[address] 2020-07-09 2020-07-09 Orders Doctor CHRISTIANO 1.2.840.114 [id number] Univers 00:00:00 00:00:00 Only Unassigned, TIMO 350.1.13.10 ity of [place] [facility] 4.2.7.2.686 [place] [phone] [facility] [address]9 [address] 2020-04-11 2020-04-11 Outpatient Ibeth JORDAN [facility] [id number] Univers 16:00:00 16:00:00 TALHA anna of [facility] 2020-04-09 2020-04-09 [facility] [id number] Common 09:20:00 09:20:[address] Sp[address] [facility] 2020-04-08 2020-04-08 Outpatient [facility] [id number] Common 13:18:00 13:18:[address] Spir it [address] [facility] 2020-03-20 2020-03-20 Outpatient [facility] [id number] Common 09:21:00 09:21:[address] Spir it [address] [facility] 2020-01-22 2020-01-22 Outpatient [facility] [id number] Common 10:46:00 10:46:[address] Spir it [address] [facility] 2020-01-22 2020-01-22 Outpatient [facility] [id number] Common 10:40:00 10:40:[address] Spir it [address] [facility] 2019-12-14 2019-12-14 Emergency [facility] [id number] Univers 13:50:40 17:15:00 Bharaterica Sylvester 350.1.13.10 murary [facility] [id number] [facility] [id number] [address] 2019-12-14 2019-12-14 Emergency X [facility] ERT [id number] Univers 13:50:40 17:15:00 BHARAT anna [facility] 2019-11-23 2019-11-23 Outpatient [facility] [id number] Common 09:20:00 09:20:[address] Spir it [address] [facility] 2019-11-23 2019-11-23 Outpatient [facility] [id number] Common 09:20:00 09:20:[address] Spir it [address] [facility] 2019-10-26 2019-10-26 Outpatient [facility] [id number] Common 13:00:00 13:00:[address] Spir it [address] [facility] 2019-10-16 2019-10-16 Outpatient [facility] [id number] Common 11:00:00 11:00:[address] Spir it [address] [facility] 2019-10-05 2019-10-05 Outpatient [facility] [id number] Common 14:00:00 14:00:[address] Spir it [address] [facility] 2019-08-10 2019-08-10 Outpatient [facility] [id number] Common 15:20:00 15:20:[address] Spir it [address] [facility] 2019-06-06 2019-06-06 Outpatient Jose Abdi [id number] Common 11:20:00 11:20:[address] Spir it [address] [facility] 2019-02-19 2019-02-19 Outpatient Jose Abdi [id number] Common 15:40:00 15:40:[address] Spir it Drive [facility] 2017-09-10 2017-09-10 Emergency E [facility] [id number] [address] 14:42:00 14:42:00 [facility] Results Test Description Test Time Test Comments Results Result Comments Source CBC W/AUTO DIFF 2022-02-12 07:47:00 Test Item Value Reference Range Interpretation Comme nts WHITE BLOOD CELL (test code = WBC) 10.8 x10 3/uL 4.5-11.0 N RED BLOOD CELL (test code = RBC) 4.74 x10 6/uL 4.00-5.60 N HEMOGLOBIN (test code = HGB) 14.1 g/dL 12.5-16.9 N HEMATOCRIT (test code = HCT) 43.5 % 37.5-50.7 N MEAN CELL VOLUME (test code = MCV) 91.8 fL 81.0-99.0 N MEAN CELL HGB (test code = MCH) 29.7 pg 27.0-33.0 N MEAN CELL HGB CONCETRATION (test code = MCHC) 32.4 g/dL 33.0-37. 0 L RED CELL DISTRIBUTION WIDTH CV (test code = RDW) 13.2 % 11.5- 14.5 N RED CELL DISTRIBUTION WIDTH SD (test code = RDW-SD) 45.0 fL 37 .0-54.0 N PLATELET COUNT (test code = PLT) 164 x10 3/uL 150-400 N MEAN PLATELET VOLUME (test code = MPV) 11.3 fL 7.0-9.0 H NEUTROPHIL % (test code = NT%) 81.4 % 56.0-77.0 H IMMATURE GRANULOCYTE % (test code = IG%) 0.2 % 0.0-2.0 N LYMPHOCYTE % (test code = LY%) 8.2 % 14.0-32.0 L MONOCYTE % (test code = MO%) 9.1 % 4.8-9.0 H EOSINOPHIL % (test code = EO%) 0.6 % 0.3-3.7 N BASOPHIL % (test code = BA%) 0.5 % 0.0-2.0 N NUCLEATED RBC % (test code = NRBC%) 0.0 % 0-0 N NEUTROPHIL # (test code = NT#) 8.81 x10 3/uL 2.0-7.6 H IMMATURE GRANULOCYTE # (test code = IG#) 0.02 x10 3/uL 0.00-0.03 N LYMPHOCYTE # (test code = LY#) 0.89 x10 3/uL 1.0-3.8 L MONOCYTE # (test code = MO#) 0.98 x10 3/uL 0.1-0.8 H EOSINOPHIL # (test code = EO#) 0.07 x10 3/uL 0.0-0.2 N BASOPHIL # (test code = BA#) 0.05 x10 3/uL 0.0-0.2 N NUCLEATED RBC # (test code = NRBC#) 0.00 x10 3/uL 0.0-0.1 N MANUAL DIFF REQUIRED (test code = MDIFF) NO BASIC METABOLIC [id number] 07:43:00 Test Item Value Reference Range Interpretation Comments SODIUM (test code = NA) 140 mEq/L 134-147 N POTASSIUM (test code = 4.1 mEq/L 3.4-5.0 N K) CHLORIDE (test code = 108 mEq/L 100-108 N CL) CARBON DIOXIDE (test 24 mEq/l 21-33 N code = CO2) ANION GAP (test code = 12 0-20 N GAP) GLUCOSE (test code = 105 mg/dL 70-110 N GLU) BLOOD UREA NITROGEN 12 mg/dL 7-18 N (test code = BUN) GLOMERULAR FILTRATION 67.2 80-90 L Units of measure = RATE (test code = GFR) ml/mi n/1.73 m2 CREATININE (test code = 1.1 mg/dL 0.6-1.3 N CREAT) CALCIUM (test code = 8.8 mg/dL 8.0-10.5 N CA) - XR FLUOROSCOPY 0-60 [id number] 00:00:00 [facility] : 1955 Sex: M FAX: Nancy Wyatt MD [phone] Shelley: St: [facility] FAX: Owen Rodriguez MD [phone] [facility]: 1955 Age/S: 66/M [address] [place] [address] Unit #: [id number] Loc: [place], [place] [address]Fgdp: Nancy Reed MD Acct: [id number] Dis Date: Status: ADM IN PHONE #: [phone] Exam Date: 02/11/2022 1107 FAX #: [phone] Reason: LUMBAR RADICULOPATHY,DORSALGIA EXAMS: CPT CODE: [id number] XR FLUOROSCOPY 0-60 MIN 87083 PROCEDURE INFORMATION: Exam: FL Fluoroscopy, Up to 1 Hour Physician Time; Radiologist Not Present For Fluoroscopy Exam date and time: 02/11/2022 8:54 AM Age: 66 years old Clinical indication: 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 This radiologist did not supervise this procedure. Exam supervised by facility personnel. Report for radiation dosage reporting and documentation only. Other technique: Radiologist was not present during this procedure. COMPARISON: No relevant prior studies available. RADIATION DOSE METRICS: Fluoroscopy time (seconds): seconds= 23.7 seconds Number of fluoro spot images: images= 6 Reference air kerma (IGNACIO): 19.93 mGy FINDINGS: Procedural imaging: Fluoroscopic assistance was provided. Radiologist was not present during the procedure. Intraoperative review of these images was performed by the operating physician. Please refer tothe procedure report for further details. Notes: Fluoroscopy supervised by facility personnel. See also separate procedure report. IMPRESSION: Fluoroscopy dosage documentation. See also separate procedure notes. at 1155 Reported and signed by: Henry La M.D. CC: Nancy Reed MD; Owen Rodriguez MD Technologist: Faye Cherry RT(R) Trnscrd Date/Time/By: 02/11/2022 (6706) : By: [email or web address] Orig Print D/T: S: 02/11/2022 (7428) PAGE 1 Signed ReportNovel Coronavirus 2019 [id number] 17:43:00 Test Item Value Reference Range Interpretation Comments Novel Coronavirus Negative Negative Positive r esults are 2019 Inhouse (test indicativ e of the presence code = COVNONPUI) ofSARS-CoV -2 RNA, clinical correlation wit h patient historyand othe r diagnostic info rmation is necessary to determinepatien t infection status. Positiv e results do not rule out bacterial infection or co -infection with other viru ses. Negative result s do not preclude SARS-C oV-2 infection andsh ould not be used as the satish e basis for patient managementdecis ions. Negative result s must be combined with otherclinical observations, p atient history, and epidemiological information . Detection of SARS-CoV-2 RNA may be affe cted bysample collec tion methods, storag e conditions, and /or stageof infection. Shelby l RNA mutations, vacc inations, antiviraltherap eutics, antibiotics, chemotherapeuti c orimmunosuppres contreras drugs have not been e valuated for effectson d etection. Results are for the identification of SARS-CoV-2 RNA usingreal-time (RT) polymerase donna n reaction (PCR) technolog yfor the qualitative det ection of nucleic acids f rom [id number] v irus and diagnosis of SA RS-CoV-2 virusinfection. It is an Emergency Use Authorization ( EUA) testauthorized by the U.S. FDA. Novel Coronavirus 2019 [id number] 05:38:00 Test Item Value Reference Range Interpretation Comments Novel Coronavirus Negative Negative Positive r esults are 2019 Inhouse (test indicativ e of the presence code = COVNONPUI) ofSARS-CoV -2 RNA, clinical correlation wit h patient historyand othe r diagnostic info rmation is necessary to determinepatien t infection status. Positiv e results do not rule out bacterial infection or co -infection with other viru ses. Negative result s do not preclude SARS-C oV-2 infection andsh ould not be used as the satish e basis for patient managementdecis ions. Negative result s must be combined with otherclinical observations, p atient history, and epidemiological information . Detection of SARS-CoV-2 RNA may be affe cted bysample collec tion methods, storag e conditions, and /or stageof infection. Shelby l RNA mutations, vacc inations, antiviraltherap eutics, antibiotics, chemotherapeuti c orimmunosuppres contreras drugs have not been e valuated for effectson d etection. Results are for the identification of SARS-CoV-2 RNA usingreal-time (RT) polymerase donna n reaction (PCR) technolog yfor the qualitative det ection of nucleic acids f rom [id number] v irus and diagnosis of SA RS-CoV-2 virusinfection. It is an Emergency Use Authorization ( EUA) testauthorized by the U.S. FDA. - XR CHEST 2 [id number] 00:00:00 [facility] : 1955 Sex: M FAX: Nancy Wyatt MD [phone] Shelley: St: PRE Name: ANTHONY BARRY [facility] [place] : 1955 Age/S: 66/M [address] [place] [address] Unit #: [id number] Loc: [place] [address] Phys: Nancy Reed MD Acct: [id number] Dis Date: Status: PRE SDC PHONE #: [phone] Exam Date: 01/26/2022 1051 FAX #: [phone] Reason: PREOP EXAMS: CPT CODE: [id number] XR CHEST 2 V 88865 PROCEDURE INFORMATION: Exam: XR Chest Exam date and time: 01/26/2022 10:31 AM Age: 66 years old Clinical indication: Screening exam; Pre-operativeexam; Cardiovascular screening; Additional info: Preop TECHNIQUE: Imaging protocol: XR of the chest.Views: 2 views. PA and Lateral COMPARISON: CR XR CHEST 1V 10/29/2018 8:18 AM FINDINGS: Lungs: Minimallinear atelectasis or scar right lung base once again seen. Lungs are otherwise clear. Pleural spaces: No pleural effusion. No pneumothorax. Heart/Mediastinum: Cardiomediastinal silhouette is normal insize. Bones/joints: Spinal canal leads are seen. Cervical spine hardware seen. IMPRESSION: No acute or active pulmonary findings. at 1112 Reported and signed by: Cecil Sosa M.D. CC: Nancy Reed MD Technologist: RT Bettie(R) Trnscrd Date/Time/By: 01/26/2022 (111) : By: [email or web address] Orig Print D/T: S: 01/26/2022 (1113) PAGE 1 Signed ReportCT LUMBAR SPINE LTD W/O [id number] 16:43:13PROCEDURE: CT OF THE CERVICAL SPINE AND CT OF THE LUMBAR [...] L4 on L5 of approximately 0.8 cm. Dege nerativechanges of the lumbar spine are noted to include endplate irregularity,disc space, vacuum phenomena, osteophyte formation, subchondral cysticchanges, facet arthropathy and foraminal narrowing. No displacedfracture or subluxation is seen.IMPRESSION:1. No displaced fracture or subluxation of the cervical or lumbar spine.2. Anterior cervical fixation at C5-C6. Degenerative changes of thecervicalspine. 3. Degenerative changes of the lumbar spine.CT CERVICAL SPINE LTD W/O [id number] 16:43:13PROCEDURE: CT OF THE CERVICAL SPINE AND CT OF THE LUMBAR [...] L4 on L5 of approximately 0.8 cm. Dege nerativechanges of the lumbar spine are noted to include endplate irregularity,disc space, vacuum phenomena, osteophyte formation, subchondral cysticchanges, facet arthropathy and foraminal narrowing. No displacedfracture or subluxation is seen.IMPRESSION:1. No displaced fracture or subluxation of the cervical or lumbar spine.2. Anterior cervical fixation at C5-C6. Degenerative changes of thecervicalspine. 3. Degenerative changes of the lumbar spine. Notes Date/Time Note Provider Source 2022-03-19 00:26[facility]00[facility]charge Summary REPORT#:[id number] REPORT STATUS: Signed DATE:03/19/22 TIME: 002 PATIENT: ANTHONY BARRY UNIT #: [id number] ROOM/BED: 6627-1 : 56 AGE: 66 SEX: M ATTEND: Jus Rodriguez MD ADM AUTHOR: Owen Rodriguez MD * ALL edits or amendments must be made on the el ectronic/computer document * General Information Problem List/A P: 1. Cough 2. Peripheral edema 3. DISPO 4. Throat pain Discharge date: 02/13/22 Discharge diagnosis: spinla cord stimulator removal Hospital course: admitted post op, tolerated without complication s medications adhusted and discharged home in stab le condition Med Rec Med Rec Discharge meds: Continue taking these medications: ATORVASTATIN (LIPITOR) (Unknown Strength) TAB 80 MILLIGRAM ORAL BEDTIME. TAMSULOSIN ER (FLOMAX) 0.4 MG CAP.SR.24H 0.4 MILLIGRAM ORAL DAILY. CYANOCOBALAMIN (VITAMIN B-12) 100 MCG TAB 100 MICROGRAM ORAL DAILY. traZODone (DESYREL) 100 MG TAB 100 MILLIGRAM ORAL BEDTIME. LEVOTHYROXINE (SYNTHROID) 175 MCG TAB 175 MICROGRAM ORAL DAILY. PANTOPRAZOLE DR (PROTONIX) 40 MG TAB.DR 40 MILLIGRAM ORAL DAILY. PROPRANOLOL (INDERAL) 10 MG TAB 10 MILLIGRAM ORAL DAILY. amLODIPine (NORVASC) 10 MG TAB 10 MILLIGRAM ORAL DAILY. Discharge Instructions PCP )( Discharge to: Home/Self Care Discharge Instructions Additional Discharge Routines: PCP Follow-Up )( Diet: Resume Home Diet/Feeds Follow-up Appointments PCP follow up: PCP: Self Referred PCP follow up timeframe: In 1-2 weeks Attending Physician: Attending Physician: Owen Rodriguez MD Consulting provider 1: Provider 1: Nancy Reed MD Consult follow up timeframe: In 2-3 weeks at 0027 RPT #:[id number] END OF REPORT 2022-02-14 13:46:00-00:00 [facility] EMERGENCY PROVIDER REPORT REPORT#:[id number] REPORT STATUS: Signed DATE:02/14/22 TIME: 1346 PATIENT: ANTHONY BARRY UNIT #: [id number] ROOM/BED: AGE: 66 SEX: M PCP PHYS: No Primary or Family Ph ysician SERVICE AUTHOR: Guevara Deleon MD * ALL edits or amendments must be made on the RateElert/computer document * HPI-URI/Cough/Cold General Confirmed Patient Yes Initial Greet Date/Time 02/14/22 1239 Presentation Chief Complaint Cough, productive, Sore throat Hx Obtained From Patient, Spouse Onset Occurred Days ago (3) Symptom Duration Since onset Associated with Reports: Cough, Sore throat, Sputum production. Denies: Abdominal pain, Chest pain, Fever, Shortness of breath. Context Recent Healthcare Previous surgery Free Text HPI Notes Free Text HPI Notes 66-year-old male presents the emergency department for evaluation of cough and chest congestion that started 3 days prior to ar rival after he had surgery to have a spinal stimulator removed from his back. Patient states he is coughing up brownish sputum. Patient denies fever. He has had no nausea or vomiting. He still has pain in his back. Spouse is concerned that he may have an abrasion in his throat from his intubation. Review of Systems Focused Review of Systems Constitutional Denies: Fever, Lethargy. Ears/Nose/Throat Reports: Nasal congestion, T ongue pain. Denies: Nose bleeding, Tongue swelling. Respiratory Reports: Cough, productive. Denies: Hemoptysis, Shortness of breath. GI Denies: Nausea, Vomiting. Additional Review of Systems Musculoskeletal Reports: Back pain. Past Medical History - Adult Stated Complaint CONGESTION,BACK PAIN Allergies Coded Allergies: lisinopril (Mild, SYNCOPE 10/07/18) Home Medications Discontinued Scripts guaiFENesin ER (MUCINEX) 600 MG PO Q12H Reported Medications ATORVASTATIN (LIPITOR) 80 MG PO BEDTIME TAMSULOSIN ER (FLOMAX) 0.4 MG PO DAILY CYANOCOBALAMIN (VITAMIN B-12) 100 MCG PO DAILY traZODone (DESYREL) 100 MG PO BEDTIME LEVOTHYROXINE (SYNTHROID) 175 MCG PO DAILY PANTOPRAZOLE DR (PROTONIX) 40 MG PO DAILY PROPRANOLOL (INDERAL) 10 MG PO DAILY amLODIPine (NORVASC) 10 MG PO DAILY Past Medical History: Reports: Cirrhosis (Stage IV), Hepatitis (C). Additional Medical History Esophageal varices Past Surgical History: Reports: Appendectomy, Cholecystectomy, Amputati on (R. BKA). Additional Surgical History Back surgery Neck surgey LLE Compartment syndrome release Right AKA Spinal stimulator (removed) Alcohol Use Denies EtOH use Drug Use Meth/amphetamines, In Recovery Smoking status: Smoking status for patients 13 years old or old er: Former Smoker Other Social History Local resident Physical Exam Vital Signs Review of Vital Signs Unavailable Focused PE General/Const General/Const Awake, Alert, Not toxic appearing Eyes Eyes PERRL, No periorbital swelling, No scleral icterus Ears/Nose/Throat Ears/Nose/Throat Airway patent, Mucous membranes moist, Pharynx NL, Nose exam NL, No facial swelling MS Neck Neck No meningismus, No adenopathy, No swelling , No crepitus, No JVD, No tracheal deviation Resp/Chest Respiratory/Chest Breath sounds NL, Breath soun ds = bilat, No respiratory distress Cardiovascular Cardiovascular Heart rate NL, Regular rhythm, H eart sounds NL Neurologic Neurologic Oriented X3, Speech NL Interpretation Diagnostics Lab Results Interpretation Results Microbiology: Date/Time Procedure - Status Source Growth 02/14 1259 Group A Streptococcus Screen (DELMI) - ORD THROAT 02/14 1259 Influenza Virus Type B Antigen - ORD NASOPHARG 02/14 1259 Influenza Virus Type A Antigen - ORD NASOPHARG Re-Evaluation MDM Free Text MDM Notes Additional Text RN was unable to find the patient for his swabs. I was unable to find the patient in the emergency department. ED Course Medication(s) Ordered Medication(s) Ordered: Central Nervous System Agents Sig/Helder Start time Last Medication Dose Route Stop Time Status Admin Hydrocodone Bitart/ 1 TAB X1ED STA 02/14 1259 D C Acetaminophen PO 02/14 1300 Patient Discharge Departure Vital Signs/Condition Vital Signs All vital signs available at the time of this en try have been reviewed. Clinical Impression Clinical Impression Primary Impression: Throat pain Secondary Impressions: Cough Disposition Decision Other )( Time 1350 )( Date 02/14/22 Against Medical Advice Yes Elopement Note Elopement Note This patient has left the emergency department o r waiting room with no communication to myself, nursing or administrati ve staff. There was no opportunity to discuss the patient's dec ision to leave, provide medical advice or discuss alternatives to leaving. The staff hernandez s made efforts to locate the patient without success. Electronically Signed by Guevara Deleon MD on 02/15 at 1022 RPT #:[id number] END OF REPORT 2022-02-13 16:04:00-00:00 [facility] Pain Management Progress Note REPORT#:[id number] REPORT STATUS: Signed DATE:02/13/22 TIME: 1604 PATIENT: ANTHONY BARRY UNIT #: [id number] ROOM/BED: 6627-1 : 56 AGE: 66 SEX: M ATTEND: Jus Rodriguez MD ADM AUTHOR: Ha Shanks * ALL edits or amendments must be made on the el ectronic/computer document * Subjective Chief complaint: Patient seen and examined. Chart/MAR reviewed. Patient is doing well today. Pain is under contr ol. Patient being seen for Acute postoperative pain, Chronic pain, Idiopathic neuropathy Patient is still requiring medications t o help with managing current problems. No fever/chills, chest pain, orthopnea, nausea/v omiting, pruritus, or hallucinations. 14 point ROS undertaken unremarkable except as n ote Objective General VS/I O: Vital Signs Date Temp Pulse Resp B/P B/P Mean Pulse Ox FiO2 02/12-02/13 36.4-37.5 67-74 14-18 120-136/62-72 83.9-92.9 92-95 Last Documented: Result Date Time Pulse Ox 93 02/13 1543 B/P 120/66 02/13 1543 B/P Mean 83.9 02/13 1543 O2 Delivery Room air 02/13 1543 Temp 36.6 02/13 1543 Pulse 70 02/13 1543 Resp 14 02/13 1543 O2 Flow Rate 2 02/13 1040 24 hour I O ending at 0700: 02/13 0700 02/12 1900 Intake Total 240 Output Total 600 Balance 240 -600 Intake, Oral 240 Number Voids 1 Output, Urine 600 Patient 102.512 kg Weight PATIENT WEIGHT: Weight (lb): 226 Weight (oz): 10.16 Weight (kg): 102.512 Medications: Active Meds + DC'd Last 24 Hrs Bacitracin (BACITRACIN 30 GM OINTMENT) 1 APPLIC ONCE ONE TOPICAL (DC) Amlodipine Besylate (NORVASC) 10 MG DAILY PO Pantoprazole (PROTONIX) 40 MG DAILY PO Tamsulosin HCl (Flomax 0.4 mg) 0.4 MG DAILY PO Levothyroxine Sodium (Synthroid) 50 MCG DAILY 06 00 PO Levothyroxine Sodium (SYNTHROID) 125 MCG DAILY 0 600 PO Docusate Sodium (COLACE) 100 MG BID PO Gabapentin (NEURONTIN) 100 MG BID PO Hydrocodone Bitart/Acetaminophen (NORCO 7.5/325 TABLET) 1 TAB Q4H PRN PRN PO Acetaminophen (TYLENOL) 650 MG Q4H PRN PRN PO Al Hydrox/Mg Hydrox/Simethicone (MYLANTA) 30 ML Q4H PRN PRN PO Docusate Sodium (COLACE) 100 MG BID PRN PRN PO Ondansetron HCl (ZOFRAN) 4 MG Q4H PRN PRN IV Al Hydrox/Mg Hydrox/Simethicone (MYLANTA) 30 ML Q4H PRN PRN PO Benzocaine/Menthol (CEPACOL SORE THROAT LOZENGE) 1 WILIAN Q2H PRN PRN MM ( CKD) Bisacodyl (DULCOLAX) 5 MG BID PRN PRN PO Bisacodyl (DULCOLAX) 10 MG DAILY PRN PRN RECTAL Diphenhydramine HCl (BENADRYL) 25 MG Q4H PRN PRN IV Magnesium Citrate (MAGNESIUM CITRATE) 300 ML RADHAMES LY PRN PRN PO Magnesium Hydroxide (MILK OF MAGNESIA) 30 ML BID PRN PRN PO Ondansetron HCl (ZOFRAN) 4 MG Q6H PRN PRN IV Promethazine HCl (PHENERGAN) 25 MG Q6H PRN PRN I M Sodium Biphosphate/Sodium Phosphate (FLEET ENEMA ADULT) 1 ENEMA DAILY PRN PRN RECTAL (CKD) Sodium Chloride (SODIUM CHLORIDE) 20 ML ASDIR IV Physical Exam General appearance: alert, awake, oriented, no a cute distress Head/eyes: atraumatic, EOMI, normocephalic, norm al conjunctiva/sclera, PERRLA ENT: normal nose, normal pharynx, moist mucosal membranes Neck: full range of motion, no lymphadenopathy, supple/no meningismus Cardiovascular: regular rate rhythm Respiratory: clear to auscultation, no distress Abdomen: soft, non-tender, no distention , active bowel sounds in all quadrant. Abdomen quadrants LLQ normal bowel sounds, LUQ normal dayron l sounds, RLQ normal bowel sounds, RUQ normal bowel sounds Extremities: moves all, no edema, pedal pulses Neuro/SALES FLOOR MANAGER: no motor deficits, no sensory deficit s, CNII-XII grossly intact Lymphatics: no lymphadenopathy Results Findings/data: No new labs or radiology. Diagnosis, Assessment Plan Free text A P: A/P: Patient is a 66 year old male who presents for s laxmi cord stimulator removal Past Medical History: Chronic pain syndrome, lum bar spondylosis, lumbar degenerative disc disease, l umbar radiculopathy, hypothyroidism, hyperlipidemia, hypertension, GERD, sleep disorder, history of e sophageal varices Past Surgical History: Cervical spine surgery, l umbar surgery, appendectomy, spinal cord stimulator implant and explant left lower extremity compartmental release, right BKA Family History: Father with colon cancer. Mother . Social History: Negative illicit drug use. He is . History of tobacco use. History of alcohol abuse. Allergies: lisinopril Acute postoperative pain -Status post spinal cord stimulator removal -[place] 7.5/325 p.o. every 4 hours as needed pain scale 4 10 -manageable Chronic pain -Lumbar spondylosis, degenerative disc d isease, cervical spondylosis, cervical degenerative disc disease -He has been using tramadol by the last few BULK CLERK reports Idiopathic neuropathy -Gabapentin 100 mg p.o. twice daily -manageable Disposition: [place] 7.5/325mg q6h PRN nehal n 7 day therapy sent to [facility]/pharmacy # [id number] [address] [place] [address] Phone: Patient has failed conservative medical therapy. Patient will require monitoring while utilize na rcotic medications for any adverse effects, and will adjust as needed Plan of care discussed with patient and nurse All diagnostics of last 24 hours been reviewed. Risks versus benefits of opioid medications were reviewed to include, but not limited to respiratory depression, accid ental overdose, altered mental status, sudden , constipation which could result in bowel obstruction, seizures, withdrawal, dependency addiction, risk for falls . Case discussed with Dr Kay whom agrees. Thank you for the consultation. [place] BULK CLERK: Total Prescriptions 3 Total Private Pay 0 Total Prescribers 3 Total Pharmacies 3 11/17/2021 11/16/2021 3 TRAMADOL HCL 50 MG TABLET 20.[id number] [facility] ( 1030) 0 20.00 MME Medicare [place] 11/05/2021 11/05/2021 2 TRAMADOL HCL 50 MG TABLE T 6.00 3 [place] Marco [id number] [place] ( 5485) 0 10.00 M[place] 06/22/2019 06/21/2019 1 HYDR OCODONE-ACETAMIN 7.5-325 56.00 28 Ma Ran [id number] Spe (8656) 0 15.00 MME Comm Ins [place] [facility] (1546) [address] [facility] [phone] [facility] (5790) [address] [place] [facility] Rm 2a-270 [facility] [address] [facility] [phone] [facility] [address] at 1609 Electronically Signed by Toño Kay MD on 2 at 1255 RPT #:[id number] END OF REPORT 2022-02-13 12:34:00-00:00 [facility] ([facility]) Internal Medicine Prog. Note REPORT#:[id number] REPORT STATUS: Signed DATE:02/13/22 TIME: 1234 PATIENT: ANTHONY BARRY UNIT #: [id number] ROOM/BED: [place] [address] : 56 AGE: 66 SEX: M ATTEND: Jus Rodriguez MD ADM AUTHOR: Owen Rodriguez MD * ALL edits or amendments must be made on the RateElert/computer document * Objective Physical Exam Head/Eyes: atraumatic, EOMI, normocephalic, PERR LA ENT: normal pharynx Neck: non-tender, no JVD Cardiovascular: normal heart sounds, regular rat e rhythm, no murmur Respiratory: aerating well, clear to auscultatio n, symmetric expansion, no distress Abdomen: non-tender, normal bowel sounds, soft, no distention Extremities: Extremities: no edema Musculoskeletal: normal inspection Neuro/SALES FLOOR MANAGER: alert, oriented x 3 Diagnosis, Assessment Plan Problem List/A P: 1. Cough 2. Throat pain 3. Peripheral edema Free Text DxA P Notes Free text DxA P notes: post op care pain control as ordered PT/OT as tolerates follow labs supportive care at 0200 RPT #:[id number] END OF REPORT 2022-02-12 15:04:00-00:00 [id number] [place], [place] [address] PATIENT NAME: ANTHONY BARRY ADMIT DATE: 02/11/22 ACCOUNT NO: [id number] [place]: [facility] [place] AGE: 66 REPORT TYPE: PROGRESS NOTE SEX: M ADMITTING PHYSICIAN:Owen Rodriguez MD ATTENDING PHYSICIAN:Owen Rodriguez MD DATE:02/11/2022 I saw Mr. Barry today postoperatively. He is d oing well. His pain is under control. He is status post spinal cord stimulato r removal. It is anticipated that he will be discharged tomorrow. He is still slow to move. Motor examination reveals motor is intact. He has a BK A on the right. Sensation is intact on the left. Incisions are clean, closed, and dry. No signs of infection. Calves are nontender. No signs of elkin p vein thrombosis. He is doing satisfactory postoperatively. I will see h im in my office in 2 to 3 weeks. Dictated By: Nancy Reed MD WT: PN:DAVIS/SHARON/CHRISTELLE Conf#: [id number]/DID#: [id number] Authenticated and Edited by Nancy Reed MD On 02/12/22 6:16:37 PM Electronically Signed by Nancy Reed MD on at 0617 PATIENT NAME: ANTHONY BARRY 79 2022-02-12 12:43:00-00:00 HCACL [facility] Internal Medicine Prog. Note REPORT#:[id number] REPORT STATUS: Signed DATE:02/12/22 TIME: 1243 PATIENT: ANTHONY BARRY UNIT #: [id number] ROOM[place]BED: [facility] [place] : 56 AGE: 66 SEX: M ATTEND: Jus Rodriguez MD ADM AUTHOR: Owen Rodriguez MD * ALL edits or amendments must be made on the el ectronic/computer document * Subjective Free Text Subj Notes Free Text Subj Notes: doing ok pain is controlled Objective General VS/I O: PATIENT WEIGHT: Weight (lb): 226 Weight (oz): 10.16 Weight (kg): 102.512 Physical Exam General appearance: alert, awake, oriented Head/Eyes: atraumatic, EOMI, normocephalic, PERR LA ENT: normal pharynx Neck: non-tender, no JVD Cardiovascular: normal heart sounds, regular rat e rhythm, no murmur Respiratory: aerating well, clear to auscultatio n, symmetric expansion, no distress Abdomen: non-tender, normal bowel sounds, soft, no distention Extremities: Extremities: no edema Musculoskeletal: normal inspection Neuro/SALES FLOOR MANAGER: alert, oriented x 3 Diagnosis, Assessment Plan Problem List/A P: 1. Cough 2. Throat pain 3. Peripheral edema Free Text DxA P Notes Free text DxA P notes: post op care pain control as ordered PT/OT as tolerates follow labs supportive care at 0207 RPT #:[id number] END OF REPORT 2022-02-12 12:03:00-00:00 HCACL [facility] ([facility]) Pain Management Progress Note REPORT#:[id number] REPORT STATUS: Signed DATE:02/12/22 TIME: 1203 PATIENT: ANTHONY BARRY UNIT #: [id number] ROOM/BED: [place] [address] : 56 AGE: 66 SEX: M ATTEND: Carito Rodriguez MD ADM AUTHOR: Ha Shanks * ALL edits or amendments must be made on the RateElert/computer document * Subjective Chief complaint: Patient seen and examined. Chart/MAR reviewed. Patient is up working with p hysical therapy. He is a little dizzy. We discussed leaving medications at current dose and frequenc y as not to exacerbate that problem. He is having some drainage from his wou nds. Patient being seen for Acute postoperative pain, Chronic pain, Idiopathic neuropathy Patient is still requiring medications t o help with managing current problems. No fever/chills, chest pain, orthopnea, nausea/v omiting, pruritus, or hallucinations. 14 point ROS undertaken unremarkable except as n oted Objective General VS/I O: Vital Signs Date Temp Pulse Resp B/P B/P Mean Pulse Ox FiO 2 02/11-02/12 36.5-36.9 54-74 9-18 100-144/56-76 80.3-95.5 86-100 Last Documented: Result Date Time Pulse Ox 92 02/12 1100 B/P 122/70 02/12 1100 B/P Mean 87.7 02/12 1100 O2 Delivery Nasal cannula 02/12 1100 Temp 36.9 02/12 1100 Pulse 71 02/12 1100 Resp 14 02/12 1100 O2 Flow Rate 2 02/11 1245 24 hour I O ending at 0700: 02/12 0700 02/11 1900 Intake Total 300.00 Output Total 200 Balance -200 300.00 Intake, IV 300.00 Output, Urine 200 PATIENT WEIGHT: Weight (lb): 226 Weight (oz): 10.16 Weight (kg): 102.800 Medications: Active Meds + DC'd Last 24 Hrs Amlodipine Besylate (NORVASC) 10 MG DAILY PO Pantoprazole (PROTONIX) 40 MG DAILY PO Tamsulosin HCl (Flomax 0.4 mg) 0.4 MG DAILY PO Levothyroxine Sodium (Synthroid) 50 MCG DAILY 06 00 PO Levothyroxine Sodium (SYNTHROID) 125 MCG DAILY 0 600 PO Docusate Sodium (COLACE) 100 MG BID PO Gabapentin (NEURONTIN) 100 MG BID PO Hydrocodone Bitart/Acetaminophen (NORCO 7.5/325 TABLET) 1 TAB Q4H PRN PRN PO Cefazolin Sodium (KEFZOL OR ANCEF) 2 GM Q8H IV ( DC) Fentanyl Citrate (SUBLIMAZE) 100 MCG PACU Q10MIN PRN PRN IV (DC) Fentanyl Citrate (SUBLIMAZE) 50 MCG PACU Q10MIN PRN PRN IV (DC) Hydralazine HCl (APRESOLINE) 2 MG PACU Q10MIN CA N PRN IV (DC) Hydrocodone Bitart/Acetaminophen (NORCO 5/325) 1 TAB PACU ONCE PO (DC) Hydromorphone HCl (DILAUDID) 1 MG PACU Q10MIN CA N PRN IV (DC) Hydromorphone HCl (DILAUDID) 0.5 MG PACU Q5MIN P RN PRN IV (DC) Insulin Human Lispro (HUMALOG) 0 PACU ONCE PRN SUBQ (DC) Labetalol HCl (LABETALOL HCL) 5 MG PACU Q10MIN P RN PRN IV (DC) Lactated Ringer's (LACTATED RINGERS) 1,000 ML .Q 24H IV (DC) Meperidine HCl (DEMEROL 50MG/ML) 12.5 MG PACU ON CE PRN IV (DC) Morphine Sulfate (morphine SULFATE) 2 MG PACU Q1 0MIN PRN PRN IV (DC) Ondansetron HCl (ZOFRAN) 4 MG PACU ONCE PRN IV ( DC) Promethazine HCl (PHENERGAN) 25 MG PACU ONCE PRN PO (DC) Ropivacaine (NAROPIN 0.5% 150 MG/30mL) 150 MG DIR PRN LOCAL (DC) Tramadol HCl (ULTRAM) 50 MG PACU ONCE PO (DC) Acetaminophen (TYLENOL) 650 MG Q4H PRN PRN PO Al Hydrox/Mg Hydrox/Simethicone (MYLANTA) 30 ML Q4H PRN PRN PO Docusate Sodium (COLACE) 100 MG BID PRN PRN PO Ondansetron HCl (ZOFRAN) 4 MG Q4H PRN PRN IV Al Hydrox/Mg Hydrox/Simethicone (MYLANTA) 30 ML Q4H PRN PRN PO Benzocaine/Menthol (CEPACOL SORE THROAT LOZENGE) 1 WILIAN Q2H PRN PRN MM ( CKD) Bisacodyl (DULCOLAX) 5 MG BID PRN PRN PO Bisacodyl (DULCOLAX) 10 MG DAILY PRN PRN RECTAL Diphenhydramine HCl (BENADRYL) 25 MG Q4H PRN PRN IV Magnesium Citrate (MAGNESIUM CITRATE) 300 ML RADAHMES LY PRN PRN PO Magnesium Hydroxide (MILK OF MAGNESIA) 30 ML BID PRN PRN PO Ondansetron HCl (ZOFRAN) 4 MG Q6H PRN PRN IV Promethazine HCl (PHENERGAN) 25 MG Q6H PRN PRN I M Sodium Biphosphate/Sodium Phosphate (FLEET ENEMA ADULT) 1 ENEMA DAILY PRN PRN RECTAL (CKD) Acetaminophen (TYLENOL EXTRA STRENGTH) 1,000 MG PREOP ONCALL PO (DC) Cefazolin Sodium (KEFZOL OR ANCEF) 2 GM PREOP GALLEY COOK IV (DC) Gabapentin (NEURONTIN) 200 MG PREOP ONCALL PO (D C) Lactated Ringer's (LACTATED RINGERS) 1,000 ML CA EOP ONCALL IV (DC) Lidocaine HCl (LIDOCAINE HCL/PF) 2 ML PREOP ONCA LL LOCAL (DC) Lidocaine HCl (LIDOCAINE HCL/PF) 2 ML PREOP ONCA LL LOCAL (DC) Sodium Chloride (SODIUM CHLORIDE 0.9%) 500 ML CA EOP ONCALL IV (DC) Sodium Chloride (SODIUM CHLORIDE 0.9%) 500 ML CA EOP ONCALL IV (DC) Sodium Chloride (SODIUM CHLORIDE 0.9%) 1,000 ML PREOP ONCALL IV (DC) Sodium Chloride (SODIUM CHLORIDE) 5 ML ASDIR PRN IV (DC) Sodium Chloride (SODIUM CHLORIDE) 10 ML ASDIR CA N IV (DC) Sodium Chloride (SODIUM CHLORIDE 0.9%) 250 ML DIR PRN IV (DC) Sodium Chloride (SODIUM CHLORIDE) 20 ML ASDIR IV (DC) Sodium Chloride (SODIUM CHLORIDE) 20 ML ASDIR IV Physical Exam General appearance: alert, awake, no acute distr ess Head/eyes: atraumatic, EOMI, normocephalic, norm al conjunctiva/sclera, PERRLA ENT: normal pharynx, moist mucosal membranes Neck: full range of motion, no lymphadenopathy, supple/no meningismus Cardiovascular: regular rate rhythm Respiratory: clear to auscultation, no distress Abdomen: soft, non-tender, no distention , active bowel sounds in all quadrant. Abdomen quadrants LLQ normal bowel sounds, LUQ normal dayron l sounds, RLQ normal bowel sounds, RUQ normal bowel sounds Extremities: moves all, no edema, pedal pulses Neuro/SALES FLOOR MANAGER: no motor deficits, no sensory deficit s, CNII-XII grossly intact Lymphatics: no lymphadenopathy Results Findings/data: Laboratory Tests: 02/12 0433 Chemistry Sodium (134 - 147 mEq/L) 140 Potassium (3.4 - 5.0 mEq/L) 4.1 Chloride (100 - 108 mEq/L) 108 Carbon Dioxide (21 - 33 mEq/l) 24 Anion Gap (0 - 20) 12 BUN (7 - 18 mg/dL) 12 Creatinine (0.6 - 1.3 mg/dL) 1.1 Glomerular Filtr Rate (80 - 90) 67.2 L Glucose (70 - 110 mg/dL) 105 Calcium (8.0 - 10.5 mg/dL) 8.8 Hematology WBC (4.5 - 11.0 x10 3/uL) 10.8 RBC (4.00 - 5.60 x10 6/uL) 4.74 Hgb (12.5 - 16.9 g/dL) 14.1 Hct (37.5 - 50.7 %) 43.5 MCV (81.0 - 99.0 fL) 91.8 MCH (27.0 - 33.0 pg) 29.7 MCHC (33.0 - 37.0 g/dL) 32.4 L RDW (11.5 - 14.5 %) 13.2 Plt Count (150 - 400 x10 3/uL) 164 MPV (7.0 - 9.0 fL) 11.3 H Neut % (Auto) (56.0 - 77.0 %) 81.4 H Lymph % (Auto) (14.0 - 32.0 %) 8.2 L [place] % (Auto) (4.8 - 9.0 %) 9.1 H Eos % (Auto) (0.3 - 3.7 %) 0.6 Baso % (Auto) (0.0 - 2.0 %) 0.5 Neut # (Auto) (2.0 - 7.6 x10 3/uL) 8.81 H Lymph # (Auto) (1.0 - 3.8 x10 3/uL) 0.89 L [place] # (Auto) (0.1 - 0.8 x10 3/uL) 0.98 H Eos # (Auto) (0.0 - 0.2 x10 3/uL) 0.07 Baso # (Auto) (0.0 - 0.2 x10 3/uL) 0.05 Abs Immat Gran (auto) (0.00 - 0.03 x10 3/uL) 0. 02 Add Manual Diff NO Immature Gran % (0.0 - 2.0 %) 0.2 Nucleated RBC % (0 - 0 %) 0.0 Nucleated RBCs # (Man) (0.0 - 0.1 x10 3/uL) 0.0 0 Diagnosis, Assessment Plan Free text A P: A/P: Patient is a 66 year old male who presents for s laxmi cord stimulator removal Past Medical History: Chronic pain syndrome, lum bar spondylosis, lumbar degenerative disc disease, l umbar radiculopathy, hypothyroidism, hyperlipidemia, hypertension, GERD, sleep disorder, history of e sophageal varices Past Surgical History: Cervical spine surgery, l umbar surgery, appendectomy, spinal cord stimulator implant and explant left lower extremity compartmental release, right BKA Family History: Father with colon cancer. Mother . Social History: Negative illicit drug use. He is . History of tobacco use. History of alcohol abuse. Allergies: lisinopril Acute postoperative pain -Status post spinal cord stimulator removal -[place] 7.5/325 p.o. every 4 hours as needed pain scale 4 10 -manageable Chronic pain -Lumbar spondylosis, degenerative disc d isease, cervical spondylosis, cervical degenerative disc disease -He has been using tramadol by the last few BULK CLERK reports Idiopathic neuropathy -Gabapentin 100 mg p.o. twice daily -manageable Patient has failed conservative medical therapy. Patient will require monitoring while utilize na rcotic medications for any adverse effects, and will adjust as needed Plan of care discussed with patient and nurse All diagnostics of last 24 hours been reviewed. Risks versus benefits of opioid medications were reviewed to include, but not limited to respiratory depression, accid ental overdose, altered mental status, sudden , constipation which could result in bowel obstruction, seizures, withdrawal, dependency addiction, risk for falls . Case discussed with Dr Kay whom agrees. Thank you for the consultation. [place] BULK CLERK: Total Prescriptions 3 Total Private Pay 0 Total Prescribers 3 Total Pharmacies 3 11/17/2021 11/16/2021 3 TRAMADOL HCL 50 MG TABLET 20.[id number] [facility] ( 1030) 0 20.00 MME Medicare [place] 11/05/2021 11/05/2021 2 TRAMADOL HCL 50 MG TABLE T 6.00 3 [place] [id number] [place] ( 5558) 0 10.00 [place] 06/22/2019 06/21/2019 1 HYDR OCODONE-ACETAMIN 7.5-325 56.00 28 Ma Ran [id number] Spe (9157) 0 15.00 MME Comm Ins [facility] [phone]) [phone] [facility] [id number] [facility] [phone] [place] Rm 2a-270 [facility] [address] [facility] [phone] [facility] [address] at 1242 Electronically Signed by Toño Kay MD on 2 at 1146 RPT #:[id number] END OF REPORT 2022-02-11 12:05:00-00:00 [id number] [place], [place] [address] PATIENT NAME: ANTHONY BARRY ADMIT DATE: 02/11/22 ACCOUNT NO: [id number] ROOM NO: [id number] AGE: 66 REPORT TYPE: PROGRESS NOTE SEX: M ADMITTING PHYSICIAN:Owen Rodriguez MD ATTENDING PHYSICIAN:Owen Rodriguez MD DATE:02/11/2022 I saw Mr. Barry today postoperatively in the r ecovery room. He is awake and alert. He has a BKA on the right. Motors on the left reveal weakness is preoperative. He had weakness of the EHL , tibialis anterior, and peroneals and soleus. Quadriceps were also mildly weak . This is unchanged following surgery. Sensation was intact on the left. Dressings are intact. Hemovac drains were intact and dressing was dry and clean with no swelling. SCDs and MIKAELA hoses were in place. He will transfer to the inpatient unit . He is doing satisfactorily. Dictated By: Nancy Reed MD WT: PN:DAVIS/SHARON/CHRISTELLE Conf#: [id number]/DID#: [id number] Authenticated and Edited by Nancy Reed MD On 02/12/22 6:15:57 PM Electronically Signed by Nancy Reed MD on at 0617 PATIENT NAME: ANTHONY BARRY 79 2022-02-11 12:04:00-00:00 HCACL [facility] ([facility]) History Physical - Adult REPORT#:[id number] REPORT STATUS: Signed DATE:02/11/22 TIME: 1204 PATIENT: ANTHONY BARRY UNIT #: [id number] ROOM/BED: 6627-1 : 56 AGE: 66 SEX: M ATTEND: Jus Rodriguez MD ADM AUTHOR: Owen Rodriguez MD * ALL edits or amendments must be made on the RateElert/computer document * History of Present Illness HPI Chief complaint: post op mgmt Free Text HPI Notes Free Text HPI Notes: 66 year old male witb multiple co-morbidities Ad mitted postop Tolerated procedure without complicati ons. Denies any fever chills chest pain shortness of breath abToleratl pain nausea and vomiting History Past medical history: Reports: Cirrhosis (Stage IV), Hepatitis (C). Additional medical history: Esophageal varices Past surgical history: Reports: Appendectomy, Cholecystectomy, Amputati on (R. BKA). Additional surgical history: Back surgery Neck surgey LLE Compartment syndrome release Alcohol use: Denies EtOH use Drug use: Meth/amphetamines, In Recovery Smoking status: Smoking status for patients 13 years old or old er: Former Smoker Date last smoked: 10/17/20 Packs per day: 1 Years smoked: 50 Pack years: 50 Medication/Allergy-Vaccine Hx Allergies: Coded Allergies: lisinopril (Mild, SYNCOPE 10/07/18) Physical Exam VS/I O PATIENT WEIGHT: Weight (lb): 226 Weight (oz): 10.16 Weight (kg): 102.512 General appearance: alert, awake, oriented Head/Eyes: atraumatic, EOMI, normocephalic, PERR LA ENT: normal pharynx Neck: non-tender, no JVD Cardiovascular: regular rate rhythm, normal hear t sounds, no murmur Respiratory: clear to auscultation, no distress, no tenderness, aerating well Abdomen/GI: active bowel sounds, soft, non-tende r, no guarding Extremities: moves all Musculoskeletal: normal inspection Neuro/SALES FLOOR MANAGER: alert, oriented X 3 Diagnosis, Assessment Plan Problem List/A P: 1. Cough 2. Peripheral edema 3. DISPO 4. Throat pain Free Text DxA P Notes Free Text DxA P Notes: post op care PT/OT evals pain control per pain mgmt team follow labs supportive care at 0211 [facility] #:[id number] END OF REPORT 2022-02-11 11:21:00-00:00 [id number] [place] [address] PATIENT NAME: ANTHONY BARRY ADMIT DATE: 02/11/22 ACCOUNT NO: [id number] ROOM NO: [id number].[id number] AGE: 66 REPORT TYPE: OPERATIVE REPORT SEX: M ADMITTING PHYSICIAN:Owen Rodriguez MD ATTENDING PHYSICIAN:Owen Rodriguez MD OPERATION DATE:02/11/2022 PREOPERATIVE DIAGNOSES: 1. Status post lumbar decompression. 2. Spinal stenosis, lumbar. Status post spinal cord stimulator placement under laminotomy T9-T10. 3. Chronic pain. POSTOPERATIVE DIAGNOSES: 1. Status post lumbar decompression. 2. Spinal stenosis, lumbar. Status post spinal cord stimulator placement under laminotomy T9-T10. 3. Chronic pain. PROCEDURES: 1. Explantation of spinal cord stimulator. 2. Bilateral hemilaminectomy, partial facetectom y and reexploration, T9-T10. SURGEON: Nancy Reed MD [employer] SALES REPRESENTATIVE: Ryan Mancini ESTIMATED BLOOD LOSS: 20 mL COMPLICATIONS: None. ANESTHESIA: General endotracheal. FINDINGS: The spinal cord stimulator, both the g enerator and the electrodes were removed. As far as we c an tell, there were no retained parts of the wires. There was dense scar tissue overlying the rufino ectomy site from the previous placement of the stimulator. This took an extend ed period of time to perform the redo laminectomy at T9-T10. I removed the st imulator. INDICATIONS FOR PROCEDURE: T his is a 66-year-old male with a history of chronic pain, several lumbar surgeries, spinal stenosis, and a placement of a spinal cord stimulator. He was brought to the operating room today for a spinal cord stimulator removal. PROCEDURE IN DETAIL: After consents were signed, the patient was taken to the operating room and given general endotracheal an esthesia in the [facility]. Sequential compression boots, an IV and a Hogue catheter were placed. He was given preoperative antibiotic. He was transferre d from the [facility] to the PATIENT NAME: ANTHONY BARRY 79 operating table in the prone position on the Jose Alfredo frame. All bony prominences were well padded in gel pads and foam pads. Chin , nose, and eyes were kept in midline and freed from press ure. The abdomen and genitalia were also freed from pressure. He was prepped and draped in usual fas hion with exposure of lumbar spine from the L1 to the upp er thoracic. C-arm was brought into the AP position to identify the spinal cord stimulator. There wa s an incision over the T9-T10 level for a previous laminectomy. There was also an incision over the left buttocks where the generator was implant ed. First, we opened the incision over the left buttock and then, s ubcutaneous tissues were opened using a Bovie. This was carried down on to the s timulator generator and this was explanted on to the skin. The wires were intact. Following this, we turned our attention to the central laminectomy wound. The stimulato r electrodes were identified using the AP C-arm image. Next, the old incision was opene d over the T9-T10 level. Subcutaneous tissues were opened in sharp dissec tion. Dissection was carried down on to the remaining spinous process of T9-T 10. There was abundant scar tissue overlying the previou s laminectomy sites. Once we had proper exposure of the remaining lamina and the facet joints at both levels, we proceeded to follow the spinal cord stimulator wires beneath the barry kali of T9. We expanded the laminectomy to include the cephalad portion of t he T9 lamina and the caudal portion of the T10 lamina. We removed the scar t issue from the laminectomy bilaterally and continued ou r expansion of the laminectomy towards the cephalad portion of the T9 vertebrae. Once we had completed this, we could visualize the paddle electrodes. These were removed. Now, ther e were still releases of scar tissue anchoring the lead wires where the tomeka ctomy site was performed. We removed the scar tissue and then, up down motion from the laminotomy sites ____(05:45) stimulator gener ator site loosened up the wires and then pulled the wires from the laminectomy site towards the spin al cord stimulator generator site. They were removed. We inspected the wires. We did not see any breaking of the wires other than what we cut the wires to remove the generator and electrodes. At this point, the C-arm was used in the AP and lateral position. We did not see any retained portions of the wire s, the electrodes or the generator. We also inspected the electrodes, the wires and generator. They appeared to be intact. At this point, we irrigat ed the wounds with copious amounts of antibiotic irrigation solution. We th en closed the separate wounds with a medium Hemovac drain in each site using a deep stitch of #1 Vicryl suture, subcutaneous tissue with 2-0 Vicryl, and the skin was closed using kerrie and sutures. Wound was dressed with baci tracin ointment, Adaptic, 4 x 4's, and foam tape. The patient was then transfe rred from the operating table to the stretcher and extubated. He was taken to recovery room in good and stable condition.Delmer Purcell surgical assista nt was required for exposure, retracting, and closing. During the procedure, the surgeon wore loupe mag nification and headlamp. Copy of this procedure was sent to the radiologi through PAC system. Dictated By: Nancy Reed MD WT: OP:DAVIS/SHARON/CHRISTELLE Conf#: [id number]/DID#: [id number] PATIENT NAME: ANTHONY BARYR 79 Authenticated and Edited by Nancy Reed MD On 02/12/22 6:16:31 PM Electronically Signed by Nancy Reed MD on at 0617 PATIENT NAME: ANTHONY BARRY 79 2022-02-11 10:35:00-00:00 [facility] Pain Management Consult Note REPORT#:[id number] REPORT STATUS: Signed DATE:02/11/22 TIME: 1035 PATIENT: ANTHONY BARRY UNIT #: [id number] ROOM/BED: [place] : 56 AGE: 66 SEX: M ATTEND: Jus Rodriguez MD ADM AUTHOR: Ha Shanks * ALL edits or amendments must be made on the el ectronic/computer document * History of Present Illness Primary Care Physician: ATTEND: Owen Rodriguez MD HPI: Patient is a 66-year-old male who was brought in for removal of spinal cord stimulator. His stimulator was placed in [facility] 12/25/2020. His spinal stimulator was giving him discomfort and is stopped working. He is requesting it removed. Spinal stimulators been removed today 02/11/2021 Has chronic back pain, prese nt for greater than 1 year, daily basis, aching/dull , intermittent, moderate intensity, aggravated a ctivity, better with rest. He does have some associated radiculopathy. Review of Systems Additional notes: 14 point ROS undertaken unremarkable except as n oted in HPI, past medical and surgical history History Past History Past Medical History: Reports: Cirrhosis (Stage IV), Hepatitis (C). Medications: Home Medications: Medication Dose/Rte/Freq Days Qty Entered Last Max Daily Dose Reviewed ATORVASTATIN (LIPITOR) 80 MG PO BEDTIME 8 Strength: (Unknown Strength) 1831 TAB TAMSULOSIN ER (FLOMAX) 0.4 MG PO DAILY 10/07/18 Strength: 0.4 MG CAP.SR.24H 183 CYANOCOBALAMIN 100 MCG PO DAILY 10/07/18 (VITAMIN B-12) 183 Strength: 100 MCG TAB traZODone (DESYREL) 100 MG PO BEDTIME 10/07/18 Strength: 100 MG TAB 1832 LEVOTHYROXINE 175 MCG PO DAILY 01/26/22 (SYNTHROID) 1053 Strength: [address] 40 MG PO DAILY 01/26/22 (PROTONIX) 1056 Strength: 40 MG TAB.DR PROPRANOLOL (INDERAL) 10 MG PO DAILY 02/11/22 Strength: 10 MG TAB 0600 amLODIPine (NORVASC) 10 MG PO DAILY 02/11/22 Strength: 10 MG TAB 0603 Current Hospital Medications: Anti-Infective Agents Sig/Helder Start time Last Medication Dose Route Stop Time Status Admin Cefazolin Sodium 2 GM Q8H 02/11 1400 AC (KEFZOL OR ANCEF) IV 02/12 0601 Gentamicin Sulfate 0 .STK-MED ONE 02/11 0849 DC (GARAMYCIN) .ROUTE Vancomycin HCl 0 .STK-MED ONE 02/11 0849 DC (VANCOMYCIN HCL) .ROUTE Cefazolin Sodium 2 GM PREOP ONCALL 02/11 0600 D C (KEFZOL OR ANCEF) IV 02/16 1044 Antihistamine Drugs Sig/Helder Start time Last Medication Dose Route Stop Time Status Admin Promethazine HCl 25 MG PACU ONCE PRN 02/11 1245 AC (PHENERGAN) PO 02/11 2231 Diphenhydramine HCl 25 MG Q4H PRN PRN 02/11 120 0 AC (BENADRYL) IV 03/13 1159 Promethazine HCl 25 MG Q6H PRN PRN 02/11 1200 A C (PHENERGAN) IM 03/13 1159 Autonomic Drugs Sig/Helder Start time Last Medication Dose Route Stop Time Status Admin Glycopyrrolate 0 .STK-MED ONE 02/11 0944 DC (GLYCOPYRROLATE) .ROUTE Neostigmine 0 .STK-MED ONE 02/11 0944 DC Methylsulfate .ROUTE (PROSTIGMIN) Glycopyrrolate 0 .STK-MED ONE 02/11 0843 DC (GLYCOPYRROLATE) .ROUTE Blood Formation,Coagulation Sig/Helder Start time Last Medication Dose Route Stop Time Status Admin Thrombin 0 .STK-MED ONE 02/11 0849 DC (RECOTHROM) TOPICAL Cardiovascular Drugs Sig/Helder Start time Last Medication Dose Route Stop Time Status Admin Hydralazine HCl 2 MG PACU Q10MIN PRN PRN 02/11 1245 AC (APRESOLINE) IV 02/11 2231 Labetalol HCl 5 MG PACU Q10MIN PRN PRN 02/11 12 45 AC (LABETALOL HCL) IV 02/11 223 Hydralazine HCl 0 .STK-MED ONE 02/11 1010 DC (APRESOLINE) .ROUTE Lidocaine HCl 0 .STK-MED ONE 02/11 0702 DC (XYLOCAINE) .ROUTE Lidocaine HCl 2 ML PREOP ONCALL 02/11 0600 DC (LIDOCAINE HCL/PF) LOCAL 03/13 2359 Lidocaine HCl 2 ML PREOP ONCALL 02/11 06 DC (LIDOCAINE HCL/PF) LOCAL 03/13 2359 Central Nervous System Agents Sig/Helder Start time Last Medication Dose Route Stop Time Status Admin Fentanyl Citrate 100 MCG PACU Q10MIN PRN PRN 1245 AC 02/11 (SUBLIMAZE) IV 02/11 2231 1251 Fentanyl Citrate 50 MCG PACU Q10MIN PRN PRN 01/16 8 1245 AC (SUBLIMAZE) IV 02/11 223 Hydrocodone Bitart/ 1 TAB PACU ONCE 02/11 1245 C KD Acetaminophen PO 02/11 223 (NORCO 5/325) Hydromorphone HCl 1 MG PACU Q10MIN PRN PRN 02/11 1245 AC (DILAUDID) IV 02/11 2231 Hydromorphone HCl 0.5 MG PACU Q5MIN PRN PRN 01/16 8 1245 AC (DILAUDID) IV 02/11 2231 Meperidine HCl 12.5 MG PACU ONCE PRN 02/11 1245 AC (DEMEROL 50MG/ML) IV 02/11 223 Morphine Sulfate 2 MG PACU Q10MIN PRN PRN 02/11 1245 AC (morphine SULFATE) IV 02/11 223 Tramadol HCl 50 MG PACU ONCE 02/11 1245 CKD (ULTRAM) PO 02/11 2231 Acetaminophen 650 MG Q4H PRN PRN 02/11 1215 AC (TYLENOL) PO 03/13 1214 Fentanyl Citrate 0 .STK-MED ONE 02/11 07 DC (SUBLIMAZE) .ROUTE Propofol 20 ML .STK-MED ONE 02/11 734 DC (DIPRIVAN 200MG/20ML IV INJECTION) Midazolam HCl 0 .STK-MED ONE 02/11 0733 DC (VERSED) .ROUTE Fentanyl Citrate 0 .STK-MED ONE 02/11 701 DC (SUBLIMAZE) .ROUTE Midazolam HCl 0 .STK-MED ONE 02/11 701 DC (VERSED) .ROUTE Propofol 0 .STK-MED ONE 02/11 701 DC (DIPRIVAN 200MG/20ML IV INJECTION) Acetaminophen 1,000 MG PREOP ONCALL 02/11 0600 DC 02/11 (TYLENOL EXTRA PO 03/13 2359 0620 STRENGTH) Gabapentin 200 MG PREOP ONCALL 02/11 0600 DC (NEURONTIN) PO 03/13 2359 0620 Electrolytic, Caloric, And Valentin Sig/Helder Start time Last Medication Dose Route Stop Time Status Admin Lactated Ringer's 1,000 ML .Q24H 02/11 1245 AC (LACTATED RINGERS) IV 02/11 2231 Sodium Chloride 10 ML .STK-MED ONE 02/11 0849 D C (SODIUM CHLORIDE) IV Lactated Ringer's 1,000 ML PREOP ONCALL 02/11 0 600 DC (LACTATED RINGERS) IV 03/13 2359 Sodium Chloride 500 ML PREOP ONCALL 02/11 0600 DC (SODIUM CHLORIDE IV 03/13 2359 0.9%) Sodium Chloride 500 ML PREOP ONCALL 02/11 0600 DC (SODIUM CHLORIDE IV 03/13 2359 0.9%) Sodium Chloride 1,000 ML PREOP ONCALL 02/11 06 00 DC (SODIUM CHLORIDE IV 03/13 2359 0.9%) Sodium Chloride 5 ML ASDIR PRN 02/11 0600 DC (SODIUM CHLORIDE) IV 03/13 0559 Sodium Chloride 10 ML ASDIR PRN 02/11 0600 DC (SODIUM CHLORIDE) IV 03/13 0559 Sodium Chloride 250 ML ASDIR PRN 02/11 0600 DC (SODIUM CHLORIDE IV 03/13 0559 0.9%) Sodium Chloride 20 ML ASDIR 02/11 0500 DC (SODIUM CHLORIDE) IV 03/11 1044 Sodium Chloride 20 ML ASDIR 02/11 0500 AC (SODIUM CHLORIDE) IV 03/11 1044 Eye, Ear, Nose And Throat (Een Sig/Helder Start time Last Medication Dose Route Stop Time Status Admin Benzocaine/Menthol 1 WILIAN Q2H PRN PRN 02/11 1200 CKD (CEPACOL SORE THROAT MM 03/13 1159 LOZENGE) Gastrointestinal Drugs Sig/Helder Start time Last Medication Dose Route Stop Time Status Admin Docusate Sodium 100 MG BID 02/11 2100 AC (COLACE) PO 03/13 2059 Ondansetron HCl 4 MG PACU ONCE PRN 02/11 1245 A C (ZOFRAN) IV 02/11 2231 Al Hydrox/Mg Hydrox/ 30 ML Q4H PRN PRN 02/11 12 15 AC Simethicone PO 03/13 1214 (MYLANTA) Docusate Sodium 100 MG BID PRN PRN 02/11 1215 AC (COLACE) PO 03/13 1214 Ondansetron HCl 4 MG Q4H PRN PRN 02/11 1215 AC (ZOFRAN) IV 03/13 1214 Al Hydrox/Mg Hydrox/ 30 ML Q4H PRN PRN 02/11 12 00 AC Simethicone PO 03/13 1159 (MYLANTA) Bisacodyl 5 MG BID PRN PRN 02/11 1200 AC (DULCOLAX) PO 03/13 1159 Bisacodyl 10 MG DAILY PRN PRN 02/11 1200 AC (DULCOLAX) RECTAL 03/13 1159 Magnesium Citrate 300 ML DAILY PRN PRN 02/11 12 00 AC (MAGNESIUM CITRATE) PO 03/13 1159 Magnesium Hydroxide 30 ML BID PRN PRN 02/11 120 0 AC (MILK OF MAGNESIA) PO 03/13 1159 Ondansetron HCl 4 MG Q6H PRN PRN 02/11 1200 AC (ZOFRAN) IV 03/13 1159 Sodium Biphosphate/ 1 ENEMA DAILY PRN PRN 02/11 1200 CKD Sodium Phosphate RECTAL 03/13 1159 (FLEET ENEMA ADULT) Famotidine 0 .STK-MED ONE 02/11 0946 DC (PEPCID) IV Metoclopramide HCl 0 .STK-MED ONE 02/11 0854 D C (REGLAN) .ROUTE Ondansetron HCl 0 .STK-MED ONE 02/11 0854 DC (ZOFRAN) .ROUTE Hormones And Synthetic Substit Sig/Helder Start time Last Medication Dose Route Stop Time Status Admin Insulin Human Lispro 0 PACU ONCE PRN 02/11 1245 AC (HUMALOG) SUBQ 02/11 2231 Local Anesthetics (Parenteral) Sig/Helder Start time Last Medication Dose Route Stop Time Status Admin Ropivacaine 150 MG ASDIR PRN 02/11 1245 AC (NAROPIN 0.5% 150 MG/ LOCAL 02/11 2231 30mL) Allergies: Coded Allergies: lisinopril (Mild, SYNCOPE 10/07/18) Objective Physical Exam VS/I O: Last Documented: Result Date Time Pulse Ox 100 02/11 1415 B/P 109/59 02/11 1415 Pulse 57 02/11 1415 Resp 10 02/11 1415 O2 Delivery Nasal cannula 02/11 1245 O2 Flow Rate 2 02/11 1245 Temp 36.9 02/11 1149 PATIENT WEIGHT: Weight (lb): 226 Weight (oz): 10.16 Weight (kg): 102.800 General appearance: alert, awake, oriented, no a cute distress Head/eyes: atraumatic, EOMI, normocephalic, norm al conjunctiva/sclera, PERRLA ENT: normal pharynx, moist mucosal membranes Neck: full range of motion, no lymphadenopathy, supple/no meningismus Cardiovascular: regular rate rhythm Respiratory: clear to auscultation, no distress Abdomen: soft, non-tender, no distention , active bowel sounds in all quadrant. Abdomen quadrants LLQ normal bowel sounds, LUQ normal dayron l sounds, RLQ normal bowel sounds, RUQ normal bowel sounds Extremities: moves all, no edema, pedal pulses Neuro/SALES FLOOR MANAGER: no motor deficits, no sensory deficit s, CNII-XII grossly intact Skin: dry, intact, no rash Results Findings/data: Recent Impressions: RADIOLOGY - XR FLUOROSCOPY 0-60 MIN 02/11 0758 Report Impression - Status: SIGNED Entered: 02/11/2022 1156 IMPRESSION: Fluoroscopy dosage documentation. See also separ ate procedure notes. Impression By: [email or web address] - Henry La M.D. Diagnosis, Assessment Plan Free text A P: A/P: Patient is a 66 year old male who presents for s laxmi cord stimulator removal Past Medical History: Chronic pain syndrome, lum bar spondylosis, lumbar degenerative disc disease, l umbar radiculopathy, hypothyroidism, hyperlipidemia, hypertension, GERD, sleep disorder, history of e sophageal varices Past Surgical History: Cervical spine surgery, l umbar surgery, appendectomy, spinal cord stimulator implant and explant left lower extremity compartmental release, right BKA Family History: Father with colon cancer. Mother . Social History: Negative illicit drug use. He is . History of tobacco use. History of alcohol abuse. Allergies: lisinopril Acute postoperative pain -Status post spinal cord stimulator removal -[place] 7.5/325 p.o. every 4 hours as needed pain scale 4 10 - Chronic pain -Lumbar spondylosis, degenerative disc d isease, cervical spondylosis, cervical degenerative disc disease -He has been using tramadol by the last few BULK CLERK reports Idiopathic neuropathy -Gabapentin 100 mg p.o. twice daily - Patient has failed conservative medical therapy. Patient will require monitoring while utilize na rcotic medications for any adverse effects, and will adjust as needed Plan of care discussed with patient and nurse All diagnostics of last 24 hours been reviewed. Risks versus benefits of opioid medications were reviewed to include, but not limited to respiratory depression, accid ental overdose, altered mental status, sudden , constipation which could result in bowel obstruction, seizures, withdrawal, dependency addiction, risk for falls . Case discussed with Dr Kay whom agrees. Thank you for the consultation. [place] BULK CLERK: Total Prescriptions 3 Total Private Pay 0 Total Prescribers 3 Total Pharmacies 3 11/17/2021 11/16/2021 3 TRAMADOL HCL 50 MG TABLET 20.00 5 [facility] Romaine [id number] [facility] ( 1030) 0 20.00 MME Medicare [place] 11/05/2021 11/05/2021 2 TRAMADOL HCL 50 MG TABLE T 6.00 3 [place] Marco [id number] [place] ( 1684) 0 10.00 [place] 06/22/2019 06/21/2019 1 HYDR OCODONE-ACETAMIN 7.5-325 56.00 28 Ma Ran [id number] Spe (5574) 0 15.00 MME Comm Ins [facility] [phone]) [phone] [facility] [phone] [facility] [phone]) [address] R[address] 2a-270 [facility] [address] [phone] [facility] [phone] [facility] [address] [phone] at 1617 RPT #:[id number] END OF REPORT 2022-02-11 10:35:00-00:00 [facility] ([facility]) Pain Management Consult Note REPORT#:[id number] REPORT STATUS: Signed DATE:02/11/22 TIME: 1035 PATIENT: ANTHONY BARRY UNIT #: [id number] ROOM/BED: [place] [address] : 56 AGE: 66 SEX: M ATTEND: Jus Rodriguez MD ADM AUTHOR: Ha Shanks * ALL edits or amendments must be made on the el [employer]/computer document * History of Present Illness Primary Care Physician: ATTEND: Owen Rodriguez MD HPI: Patient is a 66-year-old male who was brought in for removal of spinal cord stimulator. His stimulator was placed in [facility] 12/25/2020. His spinal stimulator was giving him discomfort and is stopped working. He is requesting it removed. Spinal stimulators been removed today 02/11/2021 Has chronic back pain, prese nt for greater than 1 year, daily basis, aching/dull , intermittent, moderate intensity, aggravated a ctivity, better with rest. He does have some associated radiculopathy. Review of Systems Additional notes: 14 point ROS undertaken unremarkable except as n oted in HPI, past medical and surgical history History Past History Past Medical History: Reports: Cirrhosis (Stage IV), Hepatitis (C). Medications: Home Medications: Medication Dose/Rte/Freq Days Qty Entered Last Max Daily Dose Reviewed ATORVASTATIN (LIPITOR) 80 MG PO BEDTIME 8 Strength: (Unknown Strength) 1831 TAB TAMSULOSIN ER (FLOMAX) 0.4 MG PO DAILY 8 Strength: 0.4 MG CAP.SR.24H 1831 CYANOCOBALAMIN 100 MCG PO DAILY 10/07/18 (VITAMIN B-12) 1832 Strength: 100 MCG TAB traZODone (DESYREL) 100 MG PO BEDTIME 10/07/18 Strength: 100 MG TAB 1832 LEVOTHYROXINE 175 MCG PO DAILY 01/26/22 (SYNTHROID) 1053 Strength: [address] 40 MG PO DAILY 01/26/22 (PROTONIX) 1056 Strength: 40 MG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
--- NOTE | 2023-03-24 14:11 | ER ---
Nurse's Notes [facility] Name: Papito Barry Age: 67 yrs Sex: Male : 1955 Arrival Date: 03/24/2023 Time: 11:24 Bed IW1 Private MD: Diagnosis: Presentation: 03/24 11:49 Chief complaint: Patient states: Uncontrolled BM's since 03/04/23, getting worse. Saw ll1 [facility], needs CT scan, not scheduled until end of this month. + abdominal pain and nausea. Coronavirus screen: Vaccine status: Patient reports receiving the 2nd dose of the covid vaccine. Client denies travel out of the [place] in the last 14 days. diarrhea, fatigue, Client presents with at least one sign or symptom that may indicate coronavirus-19. Standard/surgical mask placed on the client. Ebola Screen: Patient denies travel to an Ebola-affected area in the 21 days before illness onset. Initial Sepsis Screen: Does the patient meet any 2 criteria? No. Patient's initial sepsis screen is negative. Does the patient have a suspected source of infection? Yes: Acute abdominal pain. Risk Assessment: Do you want to hurt yourself or someone else? Patient reports no desire to harm self or others. Onset of symptoms was March 04, 2023. 11:49 Method Of Arrival: Ambulatory [facility] 11:49 Acuity: [place] 3 ll1 Triage Assessment: 11:53 General: Appears uncomfortable, ill, Behavior is calm, cooperative, appropriate for 2 age. Pain: Complains of pain in abdomen Quality of pain is described as aching, crampy. GI: Reports lower abdominal pain, upper abdominal pain, diarrhea, involuntary loss of bowel. Historical: - Allergies: 11:48 Lisinopril; ll1 11:48 NSAIDS; ll1 11:48 Propranolol; ll1 - PMHx: 11:48 Cirrhosis; Hepatitis; Dementia; cardiomyopathy; CAD; hepititis C-gone now; Anemia; ll1 Hypertension; colon polyps removed; varacies; Hypothyroidism; - PSHx: 11:48 fusion L4-L5; ll1 - Immunization history:: Adult Immunizations up to date. - Social history:: Smoking status: Patient/guardian denies using tobacco, the patient reports quitting approximately 2 years ago. Assessment: 13:40 Reassessment: No changes from previously documented assessment. Not in lobby when zane called for blood draw. 14:10 Reassessment: DID NOT ANSWER x3. ll1 Vital Signs: 11:49 BP 152 / 91; Pulse 79; Resp 18; Temp 97.6; Pulse Ox 95% on R/A; Weight 99.79 kg; Height ll1 5 ft. 10 in. ; Pain 9/10; 11:49 Body Mass Index 31.57 (99.79 kg, 177.8 cm) ll1 11:49 Pain Scale: Adult ll1 ED Course: 11:29 Patient arrived in ED. rg4 11:37 Rd Bashir PA is PHCP. victor manuel 11:37 Luis F Rollins DO is Attending Physician. victor manuel 11:53 Triage completed. ll1 11:54 Arm band placed on. ll1 Administered Medications: No medications were administered Outcome: 14:11 Patient left the ED. ll1 Signatures: Rd Bashir PA PA jmm Williams, Irene, RN RN iw Garcia, Rubi rg4 Brooke Birmingham RN RN ll1
[2023-03-24 14:53] VITALS: BP 152/91; TEMP 97.6; O2SAT 95
--- NOTE | 2023-03-25 14:11 | EDPHYS ---
Physician Documentation [facility] Name: Papito Barry Age: 67 yrs Sex: Male : 1955 Arrival Date: 03/24/2023 Time: 11:24 Bed IW1 Private MD: ED Physician Luis F Rollins HPI: 03/24 12:01 This 67 yrs old Male presents to ER via Ambulatory with complaints of Diarrhea - jmm UNCONTOLLED BOWEL MOVEMENTS. 12:01 The patient presents to the emergency department with diarrhea. Onset: The jmm symptoms/episode began/occurred gradually. Possible causes: unknown. The symptoms are aggravated by nothing. The symptoms are alleviated by nothing. 12:01 Associated signs and symptoms: Pertinent positives: abdominal pain. jmm 12:01 Is a 67-year-old male with history of cirrhosis, hepatitis, dementia, coronary artery jmm disease the presents emerged part with complaints of abdominal pain and diarrhea which has been ongoing for multiple weeks.. Historical: - Allergies: 11:48 Lisinopril; ll1 11:48 NSAIDS; ll1 11:48 Propranolol; ll1 - PMHx: 11:48 Cirrhosis; Hepatitis; Dementia; cardiomyopathy; CAD; hepititis C-gone now; Anemia; ll1 Hypertension; colon polyps removed; varacies; Hypothyroidism; - PSHx: 11:48 fusion L4-L5; ll1 - Immunization history:: Adult Immunizations up to date. - Social history:: Smoking status: Patient/guardian denies using tobacco, the patient reports quitting approximately 2 years ago. ROS: 12:01 Constitutional: Negative for fever, chills, and weight loss, Cardiovascular: Negative jm for chest pain, palpitations, and edema, Respiratory: Negative for shortness of breath, cough, wheezing, and pleuritic chest pain. 12:01 Abdomen/GI: Positive for abdominal pain, diarrhea. 12:01 All other systems are negative. Exam: 12:01 Constitutional: This is a well developed, well nourished patient who is awake, alert, jmm and in no acute distress. Head/Face: atraumatic. Eyes: EOMI, no conjunctival erythema appreciated ENT: Moist Mucus Membranes Neck: Trachea midline, Supple Chest/axilla: Normal chest wall appearance and motion. Cardiovascular: Regular rate and rhythm. No edema appreciated Respiratory: Normal respirations, no respiratory distress appreciated Abdomen/GI: Non distended Back: Normal ROM Skin: General appearance color normal MS/ Extremity: Moves all extremities, no obvious deformities appreciated, no edema noted to the lower extremities Neuro: Awake and alert Psych: Behavior is normal, Mood is normal, Patient is cooperative and pleasant Vital Signs: 11:49 BP 152 / 91; Pulse 79; Resp 18; Temp 97.6; Pulse Ox 95% on R/A; Weight 99.79 kg; Height ll1 5 ft. 10 in. ; Pain 9/10; 11:49 Body Mass Index 31.57 (99.79 kg, 177.8 cm) ll1 11:49 Pain Scale: Adult ll1 MDM: 12:01 Patient medically screened. [facility] 18:41 ED course: Patient eloped from the ED prior to full evaluation. [facility] 03/24 12:06 Order name: IV Saline Lock [facility] 03/24 12:06 Order name: Labs collected and sent [facility] Administered Medications: No medications were administered Disposition: 19:48 Co-signature as Attending Physician, Luis F Rollins DO I was immediately available on-site ms3 in the Emergency Department for consultation in the care of the patient. Disposition Summary: 03/24/23 14:11 Eloped Disposition: after being seen by provider ll1 Reason: unknown [facility] Signatures: Dispatcher [employer] Rd Haider PA PA jmm Lewis, Lynsay, RN RN ll1 Luis F Rollins DO DO ms3
== END 2023-03-24 14:11 | disposition left against medical advice (07) ==
LOC: ER 11:24
DX: R19.7 Diarrhea, unspecified (principal); Z88.6 Allergy status to analgesic agent; Z88.8 Allergy status to other drugs, medicaments and biological substances
CPT/HCPCS: 99281